=== PATIENT | male | born 1990 | race Caucasian/White ===

== ENCOUNTER 2019-02-22 02:11 | Inpatient (IN) | payer OTHER, SELFPAY ==
[2019-02-22 02:42] LABS: Absolute Lymphocytes (CBC) 3.8 K/uL (0.7-4.9); Absolute Monocytes 1.1 K/uL (0.1-1.3); Basophils % 0.4 % (0-1.3); Lymphocytes % 31.2 % (15.3-44.8); Monocytes % 8.9 % (3.3-12.3); RBC Red Blood Cell Count 4.36 M/uL (4.33-5.43)
[2019-02-22] MEDS ORDERED: D5 0.45 NS 1,000 ML IV ONE (02:50)
[2019-02-22 02:58] LABS: ALT/SGPT 28 U/L (12-78); AST/SGOT 15 U/L (15-37); Alkaline Phosphatase 61 U/L (45-117); BUN Blood Urea Nitrogen 17 mg/dL (7-18); Bicarbonate 26 mmol/L (21-32); Bilirubin Direct < 0.1 mg/dL (0-0.2); Bilirubin Total 0.2 mg/dL (0.2-1.0); Glucose Level 51 mg/dL (74-106); Lipase 127 U/L (73-393); Potassium 3.1 mmol/L (3.5-5.1); Sodium Level 142 mmol/L (136-145)
--- NOTE | 2019-02-22 02:58 | ER ---
Nurse's Notes [facility] Name: Macario Conrelius Age: 28 yrs Sex: Male : 1990 Arrival Date: 02/22/2019 Time: 02:12 Bed 8 Private MD: Diagnosis: Hypoglycemia, unspecified;Suicidal ideations Presentation: 02/22 02:15 Presenting complaint: Patient states: he was feeling depressed over a broken heart and aa1 injected himself with approximately 450 units of his friend's Tresiba at approx 2300 last night. EMS notified poison control [facility] and was informed that hypoglycemia is the only concern that pt needs to be monitored for. Pt reports he no longer has any thoughts of harming himself. Denies thoughts of harming others. Transition of care: patient was not received from another setting of care. Onset of symptoms was February 21, 2019 at 23:00. Risk Assessment: Do you want to hurt yourself or someone else? Patient reports no desire to harm self or others. Initial Sepsis Screen: Does the patient meet any 2 criteria? No. Patient's initial sepsis screen is negative. Does the patient have a suspected source of infection? No. Patient's initial sepsis screen is negative. Care prior to arrival: Medication(s) given: D10 drip IV initiated. 18 GA, in the right wrist, Glucose check: 59. 02:15 Method Of Arrival: EMS: [facility] aa1 02:15 Acuity: AMY 2 aa1 Historical: - Allergies: 02:35 No Known Allergies; aa1 - Home Meds: 02:35 None [Active]; aa1 - PMHx: 02:35 Bipolar disorder; aa1 - PSHx: 02:35 None; aa1 - Immunization history:: Last tetanus immunization: < 5 years ago. - Social history:: Smoking status: Patient uses tobacco products, smokes one pack cigarettes per day. - Ebola Screening: : No symptoms or risks identified at this time. Screenin:15 Abuse screen: Denies threats or abuse. Denies injuries from another. Nutritional aa1 screening: No deficits noted. Tuberculosis screening: No symptoms or risk factors identified. Fall Risk IV access (20 points). Assessment: 02:15 General: Appears in no apparent distress. comfortable, Behavior is calm, cooperative, aa1 appropriate for age. Pain: Denies pain. Neuro: Level of Consciousness is awake, alert, obeys commands, Oriented to person, place, time, situation, Moves all extremities. Full function Speech is normal, Pupils are PERRLA. Cardiovascular: Heart tones S1 S2 present Rhythm is regular. Respiratory: Airway is patent Respiratory effort is even, unlabored, Respiratory pattern is regular, symmetrical. GI: No signs and/or symptoms were reported involving the gastrointestinal system. : No signs and/or symptoms were reported regarding the genitourinary system. EENT: No signs and/or symptoms were reported regarding the EENT system. Derm: Skin is intact, is healthy with good turgor, Skin is pink, warm \T\ dry. Musculoskeletal: Circulation, motion, and sensation intact. Capillary refill < 3 seconds. 02:35 Reassessment: FSBS 37; provider notified. Labs drawn just prior to FSBS. Pt given aa1 sandwich, chips \T\ a coke. 03:45 Reassessment: Patient appears in no apparent distress at this time. Patient and/or aa1 family updated on plan of care and expected duration. Pain level reassessed. Patient is alert, oriented x 3, equal unlabored respirations, skin warm/dry/pink. Dr. Myers at bedside for admission assessment. Pt given coke and M\T\Ms. 04:51 Reassessment: Patient appears in no apparent distress at this time. Patient and/or aa1 family updated on plan of care and expected duration. Pain level reassessed. Patient is alert, oriented x 3, equal unlabored respirations, skin warm/dry/pink. Pt to be admitted to ICU and will be ER hold. Vital Signs: 02:13 BP 128 / 76; Pulse 97; Resp 20; Temp 98.2(O); Pulse Ox 97% on R/A; oe 02:35 Weight 81.65 kg; Height 6 ft. 1 in. (185.42 cm); Pain 0/10; aa1 03:51 BP 123 / 84; Pulse 71; Resp 17; Pulse Ox 98% on R/A; oe 04:50 BP 111 / 74; Pulse 70; Resp 16; Temp 98.0; Pulse Ox 98% on R/A; Pain 0/10; aa1 02:35 Body Mass Index 23.75 (81.65 kg, 185.42 cm) aa1 ED Course: 02:12 Patient arrived in ED. ds1 02:13 Earl Silva PA is PHCP. [facility] 02:13 Dexter Santiago MD is Attending Physician. [facility] 02:13 Arm band placed on right wrist. Patient placed in an exam room, on a stretcher. aa1 02:15 Patient has correct armband on for positive identification. Bed in low position. Call aa1 light in reach. Pulse ox on. NIBP on. Warm blanket given. 02:15 Maintain EMS IV. Dressing intact. Good blood return noted. Site clean \T\ dry. Gauge \T\ aa 1 site: 18 R wrist. 02:27 Eleonora Knight RN is Primary Nurse. aa1 02:30 Safety checks: Items removed: yes. Door open/sign placed on door: yes. Family/friend oe present: no. Sitter present: Yes. 02:30 Initial lab(s) drawn, by ED staff, sent to lab. aa1 02:34 Triage completed. aa1 02:35 Diet: Patient given snack. Tolerated well. aa1 02:45 Safety checks: Items removed: yes. Door open/sign placed on door: yes. Family/friend oe present: no. Sitter present: Yes. 02:57 Lela Martines MD is Hospitalizing Provider. [facility] 03:00 Safety checks: Items removed: yes. Door open/sign placed on door: yes. Family/friend oe present: no. Sitter present: Yes. 03:15 Safety checks: Items removed: yes. Door open/sign placed on door: yes. Family/friend oe present: no. Sitter present: Yes. 03:30 Safety checks: Items removed: yes. Door open/sign placed on door: yes. Family/friend oe present: no. Sitter present: Yes. 03:45 Safety checks: Items removed: yes. Door open/sign placed on door: yes. Family/friend oe present: no. Sitter present: Yes. 04:00 Safety checks: Items removed: yes. Door open/sign placed on door: yes. Family/friend oe present: no. Sitter present: Yes. 04:15 Safety checks: Items removed: yes. Door open/sign placed on door: yes. Family/friend oe present: no. Sitter present: Yes. 04:30 Safety checks: Items removed: yes. Door open/sign placed on door: yes. Family/friend oe present: no. Sitter present: Yes. 04:45 Safety checks: Items removed: yes. Door open/sign placed on door: yes. Family/friend oe present: no. Sitter present: Yes. 04:50 No provider procedures requiring assistance completed. Patient admitted, IV remains in aa1 place. Administered Medications: 02:41 Not Given (unavailable): D5-NS 1000 ml IV at 125 ml/hr continuous tl2 02:41 Drug: D5-1/2 NS 1000 ml Route: IV; Rate: 125 ml/hr; Site: right wrist; tl2 04:53 Follow up: IV Status: Infusion continued upon admission aa1 Point of Care Testing: Blood Glucose: 02:35 Blood Glucose: 37 mg/dL; aa1 03:43 Blood Glucose: 63 mg/dL; oe 04:50 Blood Glucose: 72 mg/dL; oe Ranges: Outcome: 02:57 Decision to Hospitalize by Provider. [facility] 04:51 Admitted to ER Hold. Please see [facility] for further documentation. aa1 04:51 Condition: stable 04:51 Instructed on the need for admit, Demonstrated understanding of instructions. 07:45 Admitted to ICU accompanied by nurse, accompanied by tech, via stretcher, on monitor, aa5 with chart, Report called to RINKU Rolle 07:45 Condition: stable 07:50 Patient left the ED. 5 Signatures: Eleonora Knight RN RN aa1 Earl Silva PA PA [facility] Angella Owens ds1 Fiorella Starr RN RN aa5 Chet Patel RN RN Kaitlin Haas, RINKU RN tl2 Gustabo Mcfarlane oe Corrections: (The following items were deleted from the chart) 02:42 02:33 Blood Glucose: Blood Glucose Reading=37 mg/dL. aa1 aa1 04:05 03:46 Safety checks: Items removed: yes. Door open/sign placed on door: yes. oe Family/friend present: no. Sitter present: Yes. oe 08:13 07:58 Patient left the ED. aa5
--- NOTE | 2019-02-22 02:58 | EDPHYS ---
Physician Documentation [facility] Name: Macario Cornelius Age: 28 yrs Sex: Male : 1990 Arrival Date: 02/22/2019 Time: 02:12 Bed 8 Private MD: ED Physician Dexter Santiago HPI: 02/22 02:39 This 28 yrs old Male presents to ER via EMS with complaints of Overdose. jmm 02:39 The patient presents to the emergency department after a known overdose. This is a 28 jmm year old male with a history of bipolar that presents to the ED after intentionally giving himself 250 units of tresiba. Patient states he attempted this due to relationship issues with a significant other. Patient states that he no longer wishes to hurt himself. Patient denies shortness of breath, denies abdominal pain. . Historical: - Allergies: 02:35 No Known Allergies; aa1 - Home Meds: 02:35 None [Active]; aa1 - PMHx: 02:35 Bipolar disorder; aa1 - PSHx: 02:35 None; aa1 - Immunization history:: Last tetanus immunization: < 5 years ago. - Social history:: Smoking status: Patient uses tobacco products, smokes one pack cigarettes per day. - Ebola Screening: : No symptoms or risks identified at this time. ROS: 02:39 Constitutional: Negative for fever, chills, and weight loss, Cardiovascular: Negative jmm for chest pain, palpitations, and edema, Respiratory: Negative for shortness of breath, cough, wheezing, and pleuritic chest pain. 02:39 Psych: Positive for depression. 02:39 All other systems are negative. Exam: 02:39 Constitutional: This is a well developed, well nourished patient who is awake, alert, jmm and in no acute distress. Head/Face: atraumatic. Eyes: EOMI, no conjunctival erythema appreciated ENT: Moist Mucus Membranes Neck: Trachea midline, Supple Chest/axilla: Normal chest wall appearance and motion. Cardiovascular: Regular rate and rhythm. No edema appreciated Respiratory: Normal respirations, no respiratory distress appreciated Abdomen/GI: Non distended, soft Back: Normal ROM Skin: General appearance color normal MS/ Extremity: Moves all extremities, no obvious deformities appreciated, no edema noted to the lower extremities Neuro: Awake and alert, normal gait Psych: Behavior is normal, Mood is normal, Patient is cooperative and pleasant Vital Signs: 02:13 BP 128 / 76; Pulse 97; Resp 20; Temp 98.2(O); Pulse Ox 97% on R/A; oe 02:35 Weight 81.65 kg; Height 6 ft. 1 in. (185.42 cm); Pain 0/10; aa1 03:51 BP 123 / 84; Pulse 71; Resp 17; Pulse Ox 98% on R/A; oe 04:50 BP 111 / 74; Pulse 70; Resp 16; Temp 98.0; Pulse Ox 98% on R/A; Pain 0/10; aa1 02:35 Body Mass Index 23.75 (81.65 kg, 185.42 cm) aa1 MDM: 02:17 Patient medically screened. [facility] 02:42 Transition of care: After a detail discussion of the patient's case, care is [facility] transferred to Dexter Santiago MD. 02:56 Data reviewed: vital signs, nurses notes. Counseling: I had a detailed discussion with [facility] the patient and/or guardian regarding: the historical points, exam findings, and any diagnostic results supporting the discharge/admit diagnosis. ED course: I discussed the patient with Dr. Espinoza whom accepted admisison. . 02/22 02:17 Order name: Basic Metabolic Panel; Complete Time: 15:54 [facility] 02/22 02:17 Order name: CBC with Diff; Complete Time: 02:50 [facility] 02/22 02:17 Order name: Creatinine for Radiology; Complete Time: 15:54 [facility] 02/22 02:17 Order name: Hepatic Function; Complete Time: 15:54 [facility] 02/22 02:17 Order name: Lipase; Complete Time: 15:54 [facility] 02/22 03:09 Order name: Glucose, Ancillary Testing; Complete Time: 15:54 [facility] 02/22 02:17 Order name: IV Saline Lock; Complete Time: 02:42 [facility] 02/22 02:17 Order name: Labs collected and sent; Complete Time: 02:42 [facility] 02/22 02:18 Order name: Urine Dipstick-Ancillary (obtain specimen); Complete Time: 03:13 [facility] 02/22 03:11 Order name: Urine Drug Screen; Complete Time: 15:54 [facility] 02/22 03:18 Order name: Urine Dipstick--Ancillary (enter results); Complete Time: 15:54 [facility] 02/22 07:07 Order name: Diet Finger Food; Complete Time: 07:07 aa1 Administered Medications: 02:41 Not Given (unavailable): D5-NS 1000 ml IV at 125 ml/hr continuous tl2 02:41 Drug: D5-1/2 NS 1000 ml Route: IV; Rate: 125 ml/hr; Site: right wrist; tl2 04:53 Follow up: IV Status: Infusion continued upon admission aa1 Point of Care Testing: Blood Glucose: 02:35 Blood Glucose: 37 mg/dL; aa1 03:43 Blood Glucose: 63 mg/dL; oe 04:50 Blood Glucose: 72 mg/dL; oe Ranges: Critical Glucose Levels:Adult <50 mg/dl or >400 mg/dl <40 mg/dl or >180 mg/dl Disposition: 02/22/19 02:57 Hospitalization ordered by Lela Martines for Observation. Preliminary diagnosis are Hypoglycemia, unspecified, Suicidal ideations. - Bed requested for Intensive Care Unit. - Status is Observation. hj - Condition is Stable. - Problem is new. - Symptoms are unchanged. UTI on Admission? No Addendum: 03/01/2019 04:49 Co-signature as Attending Physician, Dexter Santiago MD I agree with the assessment and t w4 plan of care. Signatures: Dispatcher [employer] EDMS Justine Blue RN RN Eleonora Knight RN RN aa1 Earl Silva PA PA [facility] Chet Patel RN RN Kaitlin Haas RN RN tl2 Dexter Santiago MD MD tw4 Corrections: (The following items were deleted from the chart) 02/22 04:29 02:57 Hospitalization Ordered by Lela Martines MD for Observation. Preliminary mw diagnosis is Hypoglycemia, unspecified; Suicidal ideations. Bed requested for Telemetry/MedSurg (Inpatient). Status is Observation. Condition is Stable. Problem is new. Symptoms are unchanged. UTI on Admission? No. jmm 06:00 04:29 02/22/2019 02:57 Hospitalization Ordered by Lela Martines MD for Observation. mw Preliminary diagnosis is Hypoglycemia, unspecified; Suicidal ideations. Bed requested for [facility] ER HOLD. Status is Observation. Condition is Stable. Problem is new. Symptoms are unchanged. UTI on Admission? No. mw 07:58 06:00 02/22/2019 02:57 Hospitalization Ordered by Lela Martines MD for Observation. hj Preliminary diagnosis is Hypoglycemia, unspecified; Suicidal ideations. Bed requested for Intensive Care Unit. Status is Observation. Condition is Stable. Problem is new. Symptoms are unchanged. UTI on Admission? No. mw
[2019-02-22 03:41] LABS: Barbiturates NEGATIVE (NEGATIVE); Benzodiazepines NEGATIVE (NEGATIVE); Cocaine NEGATIVE (NEGATIVE); METHAMPHETAM NEGATIVE (NEGATIVE); Methadone NEGATIVE (NEGATIVE); Opiates NEGATIVE (NEGATIVE); Phencyclidine NEGATIVE (NEGATIVE); THC Cannibis POSITIVE (NEGATIVE)
[2019-02-22] MEDS ORDERED: POTASSIUM CL SA 10 MEQ TAB PO ONE ×3 (03:41→20:00)
--- NOTE | 2019-02-22 04:02 | P.HP ---
Certification for Inpatient Patient admitted to: Observation With expected LOS: <2 Midnights Practitioner: I am a practitioner with admitting privileges, knowledge of patient current condition, hospital course, and medical plan of care. Services: Services provided to patient in accordance with Admission requirements found in Title 42 Section 412.3 of the Code of Federal Regulations Patient History Date of Service: 02/22/19 Reason for admission: hypoglycemia History of Present Illness: Mr Cornelius is a 28 years old male with history of Bipolar disorder, no medicated or having follow up at the moment, states that he was feeling depress last night, having suicidal thought. Then, he got Tresiba from a friend, and applied 450 UNITS. Subsequently, he start feeling dizzy and shaking, he got scared and called 911. When EMS arrived, his BS was about 50's. At arrival to ED , BS was 37 mg/dl. He was started on D5%0.45NS drip. Subsequent BS was 64 mg/ dl. He denied suicidal thoughts at this time. Lab work also shows low potassium 3.1. He has previous suicidal attempt in 2015. Home medications list reviewed: Yes - Past Medical/Surgical History -: Bipolar disorder Past Surgical History: Reviewed- Non-Contributory - Family History Family History: Reviewed- Non-Contributory - Social History Smoking Status: Current every day smoker Counseled patient to stop smoking for: less than 10 minutes Smoking therapy provided: Yes Patient receptive to therapy: Yes Alcohol use: No CD- Drugs: No Place of Residence: Home Review of Systems 10-point ROS is otherwise unremarkable Physical Examination - Physical Exam General: Alert, In no apparent distress HEENT: Atraumatic, PERRLA, Mucous membr. moist/pink, EOMI, Sclerae nonicteric Neck: Supple, 2+ carotid pulse no bruit, No LAD, Without JVD or thyroid abnormality Respiratory: Clear to auscultation bilaterally, Normal air movement Cardiovascular: Regular rate/rhythm, Normal S1 S2 Gastrointestinal: Normal bowel sounds, No tenderness Musculoskeletal: No tenderness Integumentary: No rashes Neurological: Normal speech, Normal strength at 5/5 x4 extr, Normal tone, Normal affect Lymphatics: No axilla or inguinal lymphadenopathy - Studies Laboratory Data (last 24 hrs) 02/22/19 02:25: Creatinine 0.88 02/22/19 02:25: WBC 12.2 H, Hgb 13.7, Hct 39.0 L, Plt Count 277 02/22/19 02:25: Sodium 142, Potassium 3.1 L, BUN 17, Creatinine 0.91, Glucose 51 L, Total Bilirubin 0.2, AST 15, ALT 28, Alkaline Phosphatase 61, Lipase 127 Assessment and Plan - Problems (Diagnosis) (1) Hypoglycemia Current Visit: Yes Status: Acute (2) Suicide attempt Current Visit: Yes Status: Acute (3) Bipolar disorder Current Visit: Yes Status: Acute Qualifiers: Active/Remission status: currently active Current bipolar episode type: depressed Current episode severity: unspecified Qualified Code(s): F31.30 - Bipolar disorder, current episode depressed, mild or moderate severity, unspecified - Plan The patient will be admitted in ICU for tight blood sugar monitor. Will continue with D5% 1/2NS infusion, potassium and magnesium protocol. He needs to be evaluated by mental health department before discharge. Order suicidal precautions. - Advance Directives Does patient have a Living Will: No Does patient have a Durable POA for Healthcare: No - Code Status/Comfort Care Code Status Assessed: Yes Code Status: Full Code
[2019-02-22 04:34] LABS: Urine Blood NEGATIVE (NEG); Urine Glucose NEGATIVE (NEG); Urine Protein NEGATIVE (NEG); Urine Specific Gravity 1.015 (1.005-1.030)
[2019-02-22] MEDS ORDERED: D50W 25 GM/50 ML SYRINGE IV PRN (04:44)
[2019-02-22] MEDS ORDERED: D5 0.45 NS 1,000 ML IV SCH (04:44)
[2019-02-22] MEDS ORDERED: ONDANSETRON 4 MG/2 ML VIAL IV PRN (04:44)
[2019-02-22] MEDS: NICOTINE 21 MG/PAT TD SCH (08:45)
[2019-02-22] MEDS: ENOXAPARIN 40 MG/0.4 ML SQ SCH (08:46)
[2019-02-22] MEDS: DEXTROSE 10% IV SCH ×6 (08:46→18:12)
[2019-02-22] MEDS: WATER IV SCH ×6 (08:46→18:12)
[2019-02-22] MEDS: POTASSIUM CL IV SCH ×6 (08:46→18:12)
[2019-02-22 10:40] LABS: BUN Blood Urea Nitrogen 13 mg/dL (7-18); Bicarbonate 28 mmol/L (21-32); Glucose Level 101 mg/dL (74-106); Sodium Level 145 mmol/L (136-145)
--- NOTE | 2019-02-22 15:42 | PN ---
Date of Progress Note: 02/22/2019 Subjective: The patient seen and examined. Chart reviewed and case discussed with RN. The patient states he took the insulin to hurt himself. The patient has had previous suicide attempt back in 7, was taken to [facility] and then subsequently to a psych facility in [facility] for 60 days. The patient reports being bipolar, not on any medications since he has been out of [place]. Physical Examination: Vital Signs: Temperature 98, heart rate 63, blood pressure 97/61, respirations 16, and O2 100% on ro om air. General: Awake, alert, oriented x3, not in any acute distress. CV: S1 and S2. Regular rate and rhythm. Peripheral pulses present. Respiratory: Moving air well bilaterally. No wheezing or stridor. Gastrointestinal: Abdomen is soft, nontender, nondistended. Positive bowel sounds. Extremities: No clubbing, cyanosis, or edema. Neurologic: Nonfocal. Medications: List reviewed. Laboratory Data: Glucose level has been fluctuating from 37 to 97. WBC 12.2, H and H 13.7 and 39, p latelets 227. UDS positive for THC. Assessment And Plan: A 28-year-old male with: 1.Suicide attempt, intentional. 2.Bipolar disorder. 3.Intentional drug overdose. 4.Hypoglycemia, persistent. Plan: Continue to monitor in ICU setting with suicide precautions. We will switch over to D10W as t he patient's blood sugars have continued to be in the 30s and 40s on D5. The patient took Triavil, h rhiannon-like is 25 hours. We will continue to monitor. The patient has minimal symptoms including some headache and lightheadedness. His jitteriness and shaking has resolved. We will consult social work with to find placement to psychiatric facility. The patient is suicidal. SA/MODL Voice ID: [id number] Report ID: [id number]
[2019-02-22] MEDS ORDERED: ACETAMINOPHEN 325 MG TABLET PO PRN (16:22)
[2019-02-22] MEDS ORDERED: NITROGLYCERIN 0.4 MG/TAB SL PRN (16:22)
[2019-02-22] MEDS ORDERED: NA CHLORIDE 0.9% 1,000 ML IV PRN (16:23)
[2019-02-22] MEDS: ACETAMINOPHEN 325 MG TABLET PO PRN (16:24)
[2019-02-22] MEDS: D5.45NS W/KCL 20MEQ 20 MEQ/1,000 ML BAG IV SCH (18:34)
[2019-02-22 18:52] LABS: Albumin 3.7 g/dL (3.4-5.0); Bilirubin Total 0.2 mg/dL (0.2-1.0); Potassium 3.6 mmol/L (3.5-5.1); Protein, Total 6.5 g/dL (6.4-8.2)
[2019-02-23 05:19] LABS: Absolute Lymphocytes (CBC) 3.6 K/uL (0.7-4.9); Absolute Monocytes 0.6 K/uL (0.1-1.3); Absolute Neutrophil 2.8 K/uL (1.8-8.0); Basophils % 0.6 % (0-1.3); Eosinophils % 4.7 % (0-4.4); Lymphocytes % 49.5 % (15.3-44.8); MPV 7.6 fL (7.6-11.3); Monocytes % 7.6 % (3.3-12.3); RBC Red Blood Cell Count 4.32 M/uL (4.33-5.43)
[2019-02-23 05:29] LABS: Magnesium 2.3 mg/dL (1.8-2.4)
[2019-02-23] MEDS: D5.45NS W/KCL 20MEQ 20 MEQ/1,000 ML BAG IV SCH (06:14)
[2019-02-23] MEDS: ENOXAPARIN 40 MG/0.4 ML SQ SCH (08:30)
[2019-02-23] MEDS: NICOTINE 21 MG/PAT TD SCH (08:31)
[2019-02-23] MEDS: LITHIUM CARBONATE 300 MG TAB PO SCH (20:00)
--- NOTE | 2019-02-23 20:22 | PN ---
Date of Progress Note: 02/23/2019 Subjective: The patient is seen and examined. Chart reviewed and case discussed with RN and Adriana from [facility]. The patient was recommended to go to inpatient psychiatric facility for suicidal attempt. The patient is asking if you could have a cigarette and I explained to him that he should not be smoking. We can provide a nicotine patch for him. Medications: List reviewed. Physical Examination: Vital Signs: Temperature 98, heart rate 63, respirations 16, O2 99% on room air. General: Awake, alert, oriented x3, not in any acute distress. CV: S1, S2. No murmurs. Regular rate and rhythm. Peripheral pulses present. Respiratory: Moving air well bilaterally. No wheezing or stridor. No use of accessory muscles. Gastrointestinal: Abdomen is soft, nontender, nondistended. Positive bowel sounds. Extremities: No clubbing, cyanosis, or edema. Neurologic: Nonfocal. Psych: Mood is okay. Affect is full. Insight and judgment are fair. Laboratory Data: Sodium 143, potassium 4, chloride 109, CO2 30, BUN 10, creatinine 1.01, glucose 95, calcium 8.5, magnesium 2.3. WBC is 7.3, H and H 13.7 and 39, platelets 227, neutrophils 37%. Assessment And Plan: A 28-year-old male with: 1. Suicide attempt, intentional. We will continue with suicide precautions. The patient has been evaluated by [facility], recommending inpatient psychiatric facility transfer. We will refer the patient to facility. We will need to get emergency care home. 2. Bipolar disorder. The patient is not on any medications currently. 3. Intentional drug overdose with long-acting insulin. 4. Hypoglycemia, persistent. The patient now weaned off D5. Blood sugar levels have been staying stable. Did have some low blood sugars in the 60s; however, asymptomatic. Medically, he is stable. We will check blood sugars every 2 hours and if continues to remain stable, we will space out blood glucose checks. Plan: Emergency care home order, refer to inpatient psychiatric facility. JACQUELINE Voice ID: [id number] Report ID: [id number]
[2019-02-24] MEDS: LITHIUM CARBONATE 300 MG TAB PO SCH (08:10)
[2019-02-24] MEDS: ENOXAPARIN 40 MG/0.4 ML SQ SCH (08:10)
[2019-02-24] MEDS: NICOTINE 21 MG/PAT TD SCH (08:10)
--- NOTE | 2019-02-24 17:59 | PN ---
Date of Progress Note: 02/24/2019 Subjective: The patient is seen and examined, chart reviewed, and case discussed with RN. The patie nt's parents were at the bedside yesterday. I explained to them that NEHA and my assessment is that he needs inpatient psychiatric transfer, currently awaiting on bed. Medications: List reviewed. Physical Examination: Vital Signs: Temperature 97.6, heart rate 58, blood pressure 102/63, respirations 17, and O2 of 99% on room air. General: Awake, alert, oriented x3, not in any acute distress. CV: S1, S2. No murmurs. Regular rate and rhythm. Peripheral pulses present. Respiratory: Moving air well bilaterally. No wheezing or stridor. Gastrointestinal: Abdomen is soft, nontender, nondistended. Positive bowel sounds. Extremities: No clubbing, cyanosis, or edema. Neuro: Nonfocal. Psych: Mood is okay. Affect is full. Insight and judgment are poor. Laboratory Data: Glucose level ranging between 86 and 92. Assessment And Plan: A 28-year-old male with: 1.Suicide attempt, intentional. Continue suicide precautions. The patient has been evaluated by MR. Inpatient psychiatric care has been recommended. Currently awaiting bed at either [facility] or [facility]. The patient now has an emergency fdc warrant, which expires on Wednesday. 2.Bipolar disorder, restarted on lithium. Has not been on it since he got out of detention couple of yea rs ago. We will check lithium level. 3.Intentional drug overdose with long-acting insulin. 4.Hypoglycemia, persistent secondary to drug overdose with insulin, now resolved. We will space out blood glucose checks to a.c. and h.s. Plan: Awaiting bed and transfer to inpatient psychiatric facility. SA/MODL Voice ID: [id number] Report ID: [id number]
[2019-02-24] MEDS: ACETAMINOPHEN 325 MG TABLET PO PRN (18:08)
--- NOTE | 2019-02-25 18:24 | DS ---
Date of Discharge: 02/24/2019 Consultants: None. Discharge Diagnoses: 1.Suicide attempt, intentional. 2.Bipolar disorder. 3.Intentional drug overdose with long-acting insulin. 4.Hypoglycemia, persistent. 5.Hypokalemia. Hospital Course: The patient is a 28-year-old male, who was admitted to the hospital for suicidal at [facility]. He was kept with one-on-one in the ICU. The patient had used long-acting insulin, had taken several 100 units of long-acting insulin, had persistent hypoglycemia, had to be started on D10W drip . The patient's blood sugar levels improved and he was weaned off D10W and then completely weaned of f without any added dextrose. The patient as became medically stable. He was evaluated by [facility] for his suicidal attempt and was recommended for inpatient psychiatric care. He was referred to [facility] and was accepted. He was started on lithium for his bipolar disorder. He has not been on lit hium since 2017 after he got out of detention. The patient was transferred to [facility] in a stable condition for further psychiatric evaluation and treatment. Medications: As per medication reconciliation list. Diet: Regular. Activity: As tolerated. Follow Up: Follow up with primary care physician. Establish care with primary care physician in the next couple weeks and follow up with psychiatrist upon transfer to [facility]. For physical exa m findings, please see progress note dictated on the day of discharge. Total time spent discharging the patient was 33 minutes. JACQUELINE Voice ID: [id number] Report ID: [id number]
== END 2019-02-24 19:20 | DRG 918 ==
LOC: ER 02:11 → ERHOLD 04:14 → 3RD-ICU 07:31 → OBSVTOIN 02-24 10:29
PROVIDERS: ADMIT Internal Medicine; ATTEND Family Medicine
DX: T38.3X2A Poisoning by insulin and oral hypoglycemic [antidiabetic] drugs, intentional self-harm, initial encounter (principal); E16.1 Other hypoglycemia; F31.9 Bipolar disorder, unspecified; F17.210 Nicotine dependence, cigarettes, uncomplicated; E87.6 Hypokalemia
CPT/HCPCS: 36415; 80048; 80053; 80076; 80307; 81003; 82962; 83690; 83735; 84443; 85025; 96360; 96361; 99285; G0378; J1650

== ENCOUNTER 2024-12-20 10:54 | Emergency (ER) | payer SELFPAY ==
--- OUTSIDE RECORDS SUMMARY | 2024-12-20 10:57 | XMS REPORT | Continuity of Care Document ---
Author Name Unknown Address [address] [facility] [address] [place] [address] [facility] Address [address] [facility] [address] [place] [address] Care Team Providers Care Master At Arms Name Role Phone Ariana Moore Attending Clinician Unavailable MONROE WASHBURN Attending Clinician UnavailKEHINDE Rizzo Attending Clinician Unavailable Ariana Moore Admitting Clinician Unavailable Payers Payer Name Policy Type Policy Number Effective Date Expirati on Date Source Allergies, Adverse Reactions, Alerts Allergy Name Allergy Type Status Severity Reaction(s) Onset Date Inactive Date Treating Clinician Comments Source No Known Allergie s DA Active U 03-31 00:00: 00 [facility] No Known Allergie s DA Active U 03-23 00:00: 00 [facility] Encounters Start Date/Time End Date/Time Encounter Type Admission Type Attending Clinicians Care Facility Care Department Encounter ID Source 2024-03-24 01:45:00 2024-04-01 13:38:00 Inpatient EM Ariana [facility] [id number] [facility] 2024-03-16 02:42:00 2024-03-16 05:07:00 Emergency E MONROE WASHBURN [facility] [id number] NE 2024-02-18 07:45:00 2024-02-18 08:23:00 Emergency E KEHINDE BOGGS [facility] [id number] NE Results Test Description Test Time Test Comments Results Result Co mments Source B-TYPE NATRIURETIC [id number] 13:11:00* Test Item Value Reference Range Interpretation Comme nts B-TYPE NATRIURETIC PEPTIDE ( test code = BNP) 305.0 PG/ML 0.00-100.00 H BASIC METABOLIC [id number] 07:16:00* Test Item Value Reference Range Interpretation Comme nts SODIUM (test code = NA) 141.0 mmol/L 133-144 N POTASSIUM (test code = K) 3.3 mmol/L 3.5-5.1 L CHLORIDE (test code = CL) 108 mmol/L 98-107 H CARBON DIOXIDE (test code = CO2) 27 mEq/L 20-31 N ANION GAP (test code = GAP) 6.0 GAP calc 4.0-15.0 N GLUCOSE (test code = GLU) 96 MG/DL 70-110 N BLOOD UREA NITROGEN (test code = BUN) 16 MG/DL 7-18 N GLOMERULAR FILTRATION RATE (test code = GFR) 108 estGFR >60 The Glomerular Filtration Rate is a calculated parameterbased on serum Creatinine, patient age and sex. GFR valuesless than 60 mL/min/1.73 square meters are indicative ofChronic Kidney Disease. Values less than 15 mL/min/1.73square meters indicate Kidney failure. The calculation forGFR is based on the CKD-EPI (2020) calculation. This formulais race indifferent and is the recommended formula for GFRby the National Kidney Foundation for Adults.The GFR will not calculate if the sex is unknown or if thepatient's age is <18 years. CREATININE (test code = CREAT) 0.95 mg/dL 0.55-1.30 N CALCIUM (test code = CA) 8.8 MG/DL 8.7-10.4 N INDEX HEMOLYSIS (test code = HEMINDEX) NEGATIVE Index/DL See_Comment [Automated message] The system which generated this result transmitted reference range: 1 NORMAL. The reference range was not used to interpret this result as normal/abnormal. INDEX ICTERIC (test code = ICTINDEX) NEGATIVE Index/DL See_Comment [Automated message] The system which generated this result transmitted reference range: 1 NORMAL. The reference range was not used to interpret this result as normal/abnormal. INDEX LIPEMIA (test code = LIPINDEX) NEGATIVE Index/DL See_Comment [Automated message] The system which generated this result transmitted reference range: 1 NORMAL. The reference range was not used to interpret this result as normal/abnormal. [id number] 07:16:00* Test Item Value Reference Range Interpretation Comme nts MAGNESIUM (test code = MAG) 1.8 MG/DL 1.8-2.4 N CBC W/AUTO [id number] 07:05:00* Test Item Value Reference Range Interpretation Comme nts WHITE BLOOD CELL (test code = WBC) 10.7 K/mm3 4.1-12.1 N RED BLOOD CELL (test code = RBC) 3.29 M/mm3 3.8-5.5 L HEMOGLOBIN (test code = HGB) 10.1 G/DL 10.6-15.8 L HEMATOCRIT (test code = HCT) 29.5 % 31.8-47.4 L MEAN CELL VOLUME (test code = MCV) 89.7 fL 80.1-101.1 N MEAN CELL HGB (test code = MCH) 30.7 pg 25.3-35.3 N MEAN CELL HGB CONCETRATION ( test code = MCHC) 34.2 G/DL 32.7-35.1 N RED CELL DISTRIBUTION WIDTH (test code = RDW) 12.8 % 12.2-16.4 N RED CELL DISTRIBUTION WIDTH (test code = RDW-SD) 42.1 fL 35.1-43.9 N PLATELET COUNT (test code = PLT) 222 K/mm3 155-337 N MEAN PLATELET VOLUME (test c ode = MPV) 9.4 fL 7.6-10.4 N GRANULOCYTE % (test code = GR%) 53.1 % 37.8-82.6 N IMMATURE GRANULOCYTE % (test code = IG%) 2.3 % 0.0-2.0 H LYMPHOCYTE % (test code = LY%) 28.4 % 14.1-45.4 N MONOCYTE % (test code = MO%) 14.0 % 2.5-11.7 H EOSINOPHIL % (test code = EO%) 1.9 % 0.0-6.2 N BASOPHIL % (test code = BA%) 0.3 % 0.0-2.6 N NUCLEATED RBC % (test code = NRBC%) 0.0 /100WBC% 0.0-1.0 N GRANULOCYTE # (test code = GR#) 5.66 k/mm3 2.0-13.7 N IMMATURE GRANULOCYTE # (test code = IG#) 0.25 K/mm3 0.00-0.03 H LYMPHOCYTE # (test code = LY#) 3.02 K/mm3 0.6-3.8 N MONOCYTE # (test code = MO#) 1.49 K/mm3 0.11-0.59 H EOSINOPHIL # (test code = EO#) 0.20 K/mm3 0.0-0.4 N BASOPHIL # (test code = BA#) 0.03 K/mm3 0.0-0.1 N NUCLEATED RBC # (test code = NRBC#) 0.00 K/mm3 0.00-0.05 N CARBAMAZEPINE (TEGRETOL)2024-03-28 07:18:00* Test Item Value Reference Range Interpretation Comme nts CARBAMAZEPINE (TEGRETOL) (test code = CARB) 13.6 ug/mL 4.0-12.0 H In conjunction w ith other antiepileptic drugs Therapeutic 4.0 - 8.0 Toxicity 9.0 - 12.0 Carbamazepine alone Therapeutic 8.0 - 12.0 Detection Limit = 2.0 <2.0 indicates None DetectedPatient drug level exceeds published reference range.Evaluate clinically for signs of potential toxicity.Performed At: [facility] [address] [id number] Fredi Velázquez MD Ph:[phone] BASIC METABOLIC [id number] 04:17:00* Test Item Value Reference Range Interpretation Comme nts SODIUM (test code = NA) 137.0 mmol/L 133-144 N POTASSIUM (test code = K) 3.8 mmol/L 3.5-5.1 N CHLORIDE (test code = CL) 106 mmol/L 98-107 N CARBON DIOXIDE (test code = CO2) 24 mEq/L 20-31 N ANION GAP (test code = GAP) 7.0 GAP calc 4.0-15.0 N GLUCOSE (test code = GLU) 126 MG/DL 70-110 H BLOOD UREA NITROGEN (test code = BUN) 15 MG/DL 7-18 N GLOMERULAR FILTRATION RATE (test code = GFR) 104 estGFR >60 The Glomerular Filtration Rate is a calculated parameterbased on serum Creatinine, patient age and sex. GFR valuesless than 60 mL/min/1.73 square meters are indicative ofChronic Kidney Disease. Values less than 15 mL/min/1.73square meters indicate Kidney failure. The calculation forGFR is based on the CKD-EPI (202) calculation. This formulais race indifferent and is the recommended formula for GFRby the National Kidney Foundation for Adults.The GFR will not calculate if the sex is unknown or if thepatient's age is <18 years. CREATININE (test code = CREAT) 0.98 mg/dL 0.55-1.30 N CALCIUM (test code = CA) 8.5 MG/DL 8.7-10.4 L INDEX HEMOLYSIS (test code = HEMINDEX) NEGATIVE Index/DL See_Comment [Automated message] The system which generated this result transmitted reference range: 1 NORMAL. The reference range was not used to interpret this result as normal/abnormal. INDEX ICTERIC (test code = ICTINDEX) NEGATIVE Index/DL See_Comment [Automated message] The system which generated this result transmitted reference range: 1 NORMAL. The reference range was not used to interpret this result as normal/abnormal. INDEX LIPEMIA (test code = LIPINDEX) NEGATIVE Index/DL See_Comment [Automated message] The system which generated this result transmitted reference range: 1 NORMAL. The reference range was not used to interpret this result as normal/abnormal. [id number] 04:17:00* Test Item Value Reference Range Interpretation Comme nts PHOSPHOROUS (test code = PHOS) 3.2 MG/DL 2.5-4.9 N [id number] 04:17:00* Test Item Value Reference Range Interpretation Comme nts MAGNESIUM (test code = MAG) 2.0 MG/DL 1.8-2.4 N CBC W/AUTO [id number] 03:45:00* Test Item Value Reference Range Interpretation Comme nts WHITE BLOOD CELL (test code = WBC) 9.6 K/mm3 4.1-12.1 N RED BLOOD CELL (test code = RBC) 3.11 M/mm3 3.8-5.5 L HEMOGLOBIN (test code = HGB) 9.5 G/DL 10.6-15.8 L HEMATOCRIT (test code = HCT) 27.7 % 31.8-47.4 L MEAN CELL VOLUME (test code = MCV) 89.1 fL 80.1-101.1 N MEAN CELL HGB (test code = MCH) 30.5 pg 25.3-35.3 N MEAN CELL HGB CONCETRATION ( test code = MCHC) 34.3 G/DL 32.7-35.1 N RED CELL DISTRIBUTION WIDTH (test code = RDW) 12.7 % 12.2-16.4 N RED CELL DISTRIBUTION WIDTH (test code = RDW-SD) 41.5 fL 35.1-43.9 N PLATELET COUNT (test code = PLT) 166 K/mm3 155-337 N MEAN PLATELET VOLUME (test c ode = MPV) 9.8 fL 7.6-10.4 N GRANULOCYTE % (test code = GR%) 75.4 % 37.8-82.6 N IMMATURE GRANULOCYTE % (test code = IG%) 1.3 % 0.0-2.0 N LYMPHOCYTE % (test code = LY%) 14.9 % 14.1-45.4 N MONOCYTE % (test code = MO%) 8.1 % 2.5-11.7 N EOSINOPHIL % (test code = EO%) 0.1 % 0.0-6.2 N BASOPHIL % (test code = BA%) 0.2 % 0.0-2.6 N NUCLEATED RBC % (test code = NRBC%) 0.0 /100WBC% 0.0-1.0 N GRANULOCYTE # (test code = GR#) 7.24 k/mm3 2.0-13.7 N IMMATURE GRANULOCYTE # (test code = IG#) 0.12 K/mm3 0.00-0.03 H LYMPHOCYTE # (test code = LY#) 1.43 K/mm3 0.6-3.8 N MONOCYTE # (test code = MO#) 0.78 K/mm3 0.11-0.59 H EOSINOPHIL # (test code = EO#) 0.01 K/mm3 0.0-0.4 N BASOPHIL # (test code = BA#) 0.02 K/mm3 0.0-0.1 N NUCLEATED RBC # (test code = NRBC#) 0.00 K/mm3 0.00-0.05 N BASIC METABOLIC [id number] 18:23:00* Test Item Value Reference Range Interpretation Comme nts SODIUM (test code = NA) 137.0 mmol/L 133-144 N POTASSIUM (test code = K) 3.7 mmol/L 3.5-5.1 N CHLORIDE (test code = CL) 104 mmol/L 98-107 N CARBON DIOXIDE (test code = CO2) 26 mmol/L 21-32 N ANION GAP (test code = GAP) 7.0 GAP calc 4.0-15.0 N GLUCOSE (test code = GLU) 169 MG/DL 70-110 H BLOOD UREA NITROGEN (test code = BUN) 22 MG/DL 7-18 H GLOMERULAR FILTRATION RATE (test code = GFR) 80 estGFR >60 The Glomerular Filtration Rate is a calculated parameterbased on serum Creatinine, patient age and sex. GFR valuesless than 60 mL/min/1.73 square meters are indicative ofChronic Kidney Disease. Values less than 15 mL/min/1.73square meters indicate Kidney failure. The calculation forGFR is based on the CKD-EPI (202) calculation. This formulais race indifferent and is the recommended formula for GFRby the National Kidney Foundation for Adults.The GFR will not calculate if the sex is unknown or if thepatient's age is <18 years. CREATININE (test code = CREAT) 1.22 MG/DL 0.55-1.30 N Results may be depressed if patient is takingN-Acetylcysteine (NAC) and Metamizole (Dipyrone). CALCIUM (test code = CA) 8.1 MG/DL 8.5-10.1 L INDEX HEMOLYSIS (test code = HEMINDEX) 1 NORMAL <10 MG Index/DL See_Comment [Automated message] The system which generated this result transmitted reference range: 1 NORMAL. The reference range was not used to interpret this result as normal/abnormal. INDEX ICTERIC (test code = ICTINDEX) 1 NORMAL <2 MG Index/DL See_Comment [Automated message] The system which generated this result transmitted reference range: 1 NORMAL. The reference range was not used to interpret this result as normal/abnormal. INDEX LIPEMIA (test code = LIPINDEX) 1 NORMAL <50 MG Index/DL See_Comment [Automated message] The system which generated this result transmitted reference range: 1 NORMAL. The reference range was not used to interpret this result as normal/abnormal. CBC W/AUTO [id number] 04:50:00* Test Item Value Reference Range Interpretation Comme nts WHITE BLOOD CELL (test code = WBC) 12.2 K/mm3 4.1-12.1 H RED BLOOD CELL (test code = RBC) 3.39 M/mm3 3.8-5.5 L HEMOGLOBIN (test code = HGB) 10.7 G/DL 10.6-15.8 N HEMATOCRIT (test code = HCT) 30.1 % 31.8-47.4 L MEAN CELL VOLUME (test code = MCV) 88.8 fL 80.1-101.1 N MEAN CELL HGB (test code = MCH) 31.6 pg 25.3-35.3 N MEAN CELL HGB CONCETRATION ( test code = MCHC) 35.5 G/DL 32.7-35.1 H RED CELL DISTRIBUTION WIDTH (test code = RDW) 13.0 % 12.2-16.4 N RED CELL DISTRIBUTION WIDTH (test code = RDW-SD) 41.9 fL 35.1-43.9 N PLATELET COUNT (test code = PLT) 174 K/mm3 155-337 N MEAN PLATELET VOLUME (test c ode = MPV) 10.5 fL 7.6-10.4 H GRANULOCYTE % (test code = GR%) 82.1 % 37.8-82.6 N IMMATURE GRANULOCYTE % (test code = IG%) 1.0 % 0.0-2.0 N LYMPHOCYTE % (test code = LY%) 8.0 % 14.1-45.4 L MONOCYTE % (test code = MO%) 7.8 % 2.5-11.7 N EOSINOPHIL % (test code = EO%) 0.8 % 0.0-6.2 N BASOPHIL % (test code = BA%) 0.3 % 0.0-2.6 N NUCLEATED RBC % (test code = NRBC%) 0.0 /100WBC% 0.0-1.0 N GRANULOCYTE # (test code = GR#) 10.05 k/mm3 2.0-13.7 N IMMATURE GRANULOCYTE # (test code = IG#) 0.12 K/mm3 0.00-0.03 H LYMPHOCYTE # (test code = LY#) 0.98 K/mm3 0.6-3.8 N MONOCYTE # (test code = MO#) 0.95 K/mm3 0.11-0.59 H EOSINOPHIL # (test code = EO#) 0.10 K/mm3 0.0-0.4 N BASOPHIL # (test code = BA#) 0.04 K/mm3 0.0-0.1 N NUCLEATED RBC # (test code = NRBC#) 0.00 K/mm3 0.00-0.05 N BASIC METABOLIC [id number] 04:43:00* Test Item Value Reference Range Interpretation Comme nts SODIUM (test code = NA) 140.0 mmol/L 133-144 N POTASSIUM (test code = K) 4.2 mmol/L 3.5-5.1 N CHLORIDE (test code = CL) 110 mmol/L 98-107 H CARBON DIOXIDE (test code = CO2) 25 mEq/L 20-31 N ANION GAP (test code = GAP) 5.0 GAP calc 4.0-15.0 N GLUCOSE (test code = GLU) 110 MG/DL 70-110 N BLOOD UREA NITROGEN (test code = BUN) 20 MG/DL 7-18 H GLOMERULAR FILTRATION RATE (test code = GFR) 77 estGFR >60 The Glomerular Filtration Rate is a calculated parameterbased on serum Creatinine, patient age and sex. GFR valuesless than 60 mL/min/1.73 square meters are indicative ofChronic Kidney Disease. Values less than 15 mL/min/1.73square meters indicate Kidney failure. The calculation forGFR is based on the CKD-EPI (202) calculation. This formulais race indifferent and is the recommended formula for GFRby the National Kidney Foundation for Adults.The GFR will not calculate if the sex is unknown or if thepatient's age is <18 years. CREATININE (test code = CREAT) 1.25 mg/dL 0.55-1.30 N CALCIUM (test code = CA) 8.3 MG/DL 8.7-10.4 L INDEX HEMOLYSIS (test code = HEMINDEX) 2 TRACE 10-25 MG Index/DL See_Comment [Automated message] The system which generated this result transmitted reference range: 1 NORMAL. The reference range was not used to interpret this result as normal/abnormal. INDEX ICTERIC (test code = ICTINDEX) NEGATIVE Index/DL See_Comment [Automated message] The system which generated this result transmitted reference range: 1 NORMAL. The reference range was not used to interpret this result as normal/abnormal. INDEX LIPEMIA (test code = LIPINDEX) NEGATIVE Index/DL See_Comment [Automated message] The system which generated this result transmitted reference range: 1 NORMAL. The reference range was not used to interpret this result as normal/abnormal. [id number] 04:43:00* Test Item Value Reference Range Interpretation Comme nts MAGNESIUM (test code = MAG) 1.8 MG/DL 1.8-2.4 N COVID 19 Asymptomatic IH [id number] 01:54:00* Test Item Value Reference Range Interpretation Comme nts COVID 19 Asymptomatic IH AG (test code = COVNONPUIAG) Negative Neg BASIC METABOLIC [id number] 03:48:00* Test Item Value Reference Range Interpretation Comme nts SODIUM (test code = NA) 139.0 mmol/L 133-144 N POTASSIUM (test code = K) 4.8 mmol/L 3.5-5.1 N CHLORIDE (test code = CL) 109 mmol/L 98-107 H CARBON DIOXIDE (test code = CO2) 25 mEq/L 20-31 N ANION GAP (test code = GAP) 5.0 GAP calc 4.0-15.0 N GLUCOSE (test code = GLU) 102 MG/DL 70-110 N BLOOD UREA NITROGEN (test code = BUN) 22 MG/DL 7-18 H GLOMERULAR FILTRATION RATE (test code = GFR) 106 estGFR >60 The Glomerular Filtration Rate is a calculated parameterbased on serum Creatinine, patient age and sex. GFR valuesless than 60 mL/min/1.73 square meters are indicative ofChronic Kidney Disease. Values less than 15 mL/min/1.73square meters indicate Kidney failure. The calculation forGFR is based on the CKD-EPI (202) calculation. This formulais race indifferent and is the recommended formula for GFRby the National Kidney Foundation for Adults.The GFR will not calculate if the sex is unknown or if thepatient's age is <18 years. CREATININE (test code = CREAT) 0.96 mg/dL 0.55-1.30 N CALCIUM (test code = CA) 8.8 MG/DL 8.7-10.4 N INDEX HEMOLYSIS (test code = HEMINDEX) 1 NORMAL <10 MG Index/DL See_Comment [Automated message] The system which generated this result transmitted reference range: 1 NORMAL. The reference range was not used to interpret this result as normal/abnormal. INDEX ICTERIC (test code = ICTINDEX) NEGATIVE Index/DL See_Comment [Automated message] The system which generated this result transmitted reference range: 1 NORMAL. The reference range was not used to interpret this result as normal/abnormal. INDEX LIPEMIA (test code = LIPINDEX) NEGATIVE Index/DL See_Comment [Automated message] The system which generated this result transmitted reference range: 1 NORMAL. The reference range was not used to interpret this result as normal/abnormal. [id number] 03:48:00* Test Item Value Reference Range Interpretation Comme nts PHOSPHOROUS (test code = PHOS) 2.8 MG/DL 2.5-4.9 N [id number] 03:48:00* Test Item Value Reference Range Interpretation Comme nts MAGNESIUM (test code = MAG) 2.0 MG/DL 1.8-2.4 N CBC W/AUTO [id number] 03:37:00* Test Item Value Reference Range Interpretation Comme nts WHITE BLOOD CELL (test code = WBC) 10.8 K/mm3 4.1-12.1 N RED BLOOD CELL (test code = RBC) 3.51 M/mm3 3.8-5.5 L HEMOGLOBIN (test code = HGB) 10.6 G/DL 10.6-15.8 N HEMATOCRIT (test code = HCT) 32.7 % 31.8-47.4 N MEAN CELL VOLUME (test code = MCV) 93.2 fL 80.1-101.1 N MEAN CELL HGB (test code = MCH) 30.2 pg 25.3-35.3 N MEAN CELL HGB CONCETRATION ( test code = MCHC) 32.4 G/DL 32.7-35.1 L RED CELL DISTRIBUTION WIDTH (test code = RDW) 13.3 % 12.2-16.4 N RED CELL DISTRIBUTION WIDTH (test code = RDW-SD) 45.5 fL 35.1-43.9 H PLATELET COUNT (test code = PLT) 144 K/mm3 155-337 L MEAN PLATELET VOLUME (test c ode = MPV) 10.5 fL 7.6-10.4 H GRANULOCYTE % (test code = GR%) 76.9 % 37.8-82.6 N IMMATURE GRANULOCYTE % (test code = IG%) 0.7 % 0.0-2.0 N LYMPHOCYTE % (test code = LY%) 14.3 % 14.1-45.4 N MONOCYTE % (test code = MO%) 5.4 % 2.5-11.7 N EOSINOPHIL % (test code = EO%) 2.4 % 0.0-6.2 N BASOPHIL % (test code = BA%) 0.3 % 0.0-2.6 N NUCLEATED RBC % (test code = NRBC%) 0.0 /100WBC% 0.0-1.0 N GRANULOCYTE # (test code = GR#) 8.31 k/mm3 2.0-13.7 N IMMATURE GRANULOCYTE # (test code = IG#) 0.08 K/mm3 0.00-0.03 H LYMPHOCYTE # (test code = LY#) 1.54 K/mm3 0.6-3.8 N MONOCYTE # (test code = MO#) 0.58 K/mm3 0.11-0.59 N EOSINOPHIL # (test code = EO#) 0.26 K/mm3 0.0-0.4 N BASOPHIL # (test code = BA#) 0.03 K/mm3 0.0-0.1 N NUCLEATED RBC # (test code = NRBC#) 0.00 K/mm3 0.00-0.05 N GLUCOSE BEDSIDE [id number] 03:23:00* Test Item Value Reference Range Interpretation Comme nts GLUCOSE BEDSIDE TESTING (manuel t code = GLUBED) 101 MG/DL 70-119 N GLUCOSE BEDSIDE [id number] 21:05:00* Test Item Value Reference Range Interpretation Comme nts GLUCOSE BEDSIDE TESTING (manuel t code = GLUBED) 115 MG/DL 70-119 N B-TYPE NATRIURETIC [id number] 17:43:00* Test Item Value Reference Range Interpretation Comme nts B-TYPE NATRIURETIC PEPTIDE ( test code = BNP) 61.9 PG/ML 0.00-100.00 N CBC W/AUTO [id number] 07:24:00* Test Item Value Reference Range Interpretation Comme nts WHITE BLOOD CELL (test code = WBC) 8.0 K/mm3 4.1-12.1 N RED BLOOD CELL (test code = RBC) 3.94 M/mm3 3.8-5.5 N HEMOGLOBIN (test code = HGB) 12.4 G/DL 10.6-15.8 N HEMATOCRIT (test code = HCT) 34.5 % 31.8-47.4 N MEAN CELL VOLUME (test code = MCV) 87.6 fL 80.1-101.1 N MEAN CELL HGB (test code = MCH) 31.5 pg 25.3-35.3 N MEAN CELL HGB CONCETRATION ( test code = MCHC) 35.9 G/DL 32.7-35.1 H RED CELL DISTRIBUTION WIDTH (test code = RDW) 13.0 % 12.2-16.4 N RED CELL DISTRIBUTION WIDTH (test code = RDW-SD) 41.9 fL 35.1-43.9 N PLATELET COUNT (test code = PLT) 151 K/mm3 155-337 L MEAN PLATELET VOLUME (test c ode = MPV) 9.3 fL 7.6-10.4 N GRANULOCYTE % (test code = GR%) 83.3 % 37.8-82.6 H IMMATURE GRANULOCYTE % (test code = IG%) 0.5 % 0.0-2.0 N LYMPHOCYTE % (test code = LY%) 10.0 % 14.1-45.4 L MONOCYTE % (test code = MO%) 5.9 % 2.5-11.7 N EOSINOPHIL % (test code = EO%) 0.1 % 0.0-6.2 N BASOPHIL % (test code = BA%) 0.2 % 0.0-2.6 N NUCLEATED RBC % (test code = NRBC%) 0.0 /100WBC% 0.0-1.0 N GRANULOCYTE # (test code = GR#) 6.68 k/mm3 2.0-13.7 N IMMATURE GRANULOCYTE # (test code = IG#) 0.04 K/mm3 0.00-0.03 H LYMPHOCYTE # (test code = LY#) 0.80 K/mm3 0.6-3.8 N MONOCYTE # (test code = MO#) 0.47 K/mm3 0.11-0.59 N EOSINOPHIL # (test code = EO#) 0.01 K/mm3 0.0-0.4 N BASOPHIL # (test code = BA#) 0.02 K/mm3 0.0-0.1 N NUCLEATED RBC # (test code = NRBC#) 0.00 K/mm3 0.00-0.05 N WBC [id number] 07:24:00* Test Item Value Reference Range Interpretation Comme nts TOTAL CELLS COUNTED (test code = TCC) 100 #CELLS See_Comment [Automated mes king] The system which generated this result transmitted reference range: 100. The reference range was not used to interpret this result as normal/abnormal. SEGMENTED NEUTROPHILS (test code = SEG) 79 % 40-75 H LYMPHOCYTE (test code = LYMPH) 17 % 12.6-43.5 N MORPHOLOGY COMMENT (test code = MOC) ON SCAN NORMAL RBCS PLATELET ESTIMATE (test code = PLTEST) SL DECR ON SCAN ADEQUATE MONOCYTE (test code = MON) 4 % 4.2-12.7 L VACUOLATED NEUTROPHILS (test code = VN) SLIGHT ON SCAN NONE [id number] 04:23:00* Test Item Value Reference Range Interpretation Comme nts PHOSPHOROUS (test code = PHOS) 4.0 MG/DL 2.5-4.9 N ADDON REQUESTEDCARBAMAZEPINE (TEGRETOL)2024-03-25 04:09:00* Test Item Value Reference Range Interpretation Comme nts CARBAMAZEPINE (TEGRETOL) (test code = CARB) 17.6 ug/mL 4.0-12.0 H In conjunction w ith other antiepileptic drugs Therapeutic 4.0 - 8.0 Toxicity 9.0 - 12.0 Carbamazepine alone Therapeutic 8.0 - 12.0 Detection Limit = 2.0 <2.0 indicates None DetectedPatient drug level exceeds published reference range.Evaluate clinically for signs of potential toxicity.Performed At: [facility] [id number] [place], [place] [id number] Fredi Velázquez MD Ph:[phone] ARTERIAL BLOOD [id number] 03:23:00* Test Item Value Reference Range Interpretation Comme nts ARTERIAL BLOOD GAS PH (test code = PHA) 7.40 pH units 7.35-7.45 N ARTERIAL BLOOD GAS PCO2 (test code = PCO2A) 40 mmHg 35-45 N ARTERIAL BLOOD GAS PO2 (test code = PO2A) 77 mmHg 80-100 L BICARBONATE TOTAL HCO3 (test code = HCO3) 24.8 mmol/L 22.0-26.0 N BASE EXCESS (test code = CORIN) 0.0 mmol/L -3.0-3.0 N FIO2 (test code = FIO2A) 100 % (calc) 21-100 N MODALITY (test code = MOD) BIPAP COMMENT DESCRIPTION PaO2/FiO2 (test code = [id number]) 77.00 mm/Hg ABG PEEP (test code = PEEPA) 5 cm H20 0.0-99.9 ABG PRESSURE SUPPORT (test code = PSABG) 5.0 cm H20 See_Comment [Automated messa ge] The system which generated this result transmitted reference range: 0-. The reference range was not used to interpret this result as normal/abnormal. ABG SITE (test code = SITEA) LEFT RADIAL ARTKIT DESCRIPTION MODIFIED JASEN'S (test code = MODALL) POSITIVE Circ.CHK POSITIVE O2 SATURATION (test code = O2S/C) 96 % (calc) 95-100 N [facility] [id number] 03:09:00* Test Item Value Reference Range Interpretation Comme nts SODIUM (test code = NA) 140.0 mmol/L 133-144 N POTASSIUM (test code = K) 4.2 mmol/L 3.5-5.1 N CHLORIDE (test code = CL) 111 mmol/L 98-107 H CARBON DIOXIDE (test code = CO2) 24 mEq/L 20-31 N ANION GAP (test code = GAP) 5.0 GAP calc 4.0-15.0 N GLUCOSE (test code = GLU) 113 MG/DL 70-110 H BLOOD UREA NITROGEN (test code = BUN) 17 MG/DL 7-18 N GLOMERULAR FILTRATION RATE (test code = GFR) 105 estGFR >60 The Glomerular Filtration Rate is a calculated parameterbased on serum Creatinine, patient age and sex. GFR valuesless than 60 mL/min/1.73 square meters are indicative ofChronic Kidney Disease. Values less than 15 mL/min/1.73square meters indicate Kidney failure. The calculation forGFR is based on the CKD-EPI (2020) calculation. This formulais race indifferent and is the recommended formula for GFRby the National Kidney Foundation for Adults.The GFR will not calculate if the sex is unknown or if thepatient's age is <18 years. CREATININE (test code = CREAT) 0.97 mg/dL 0.55-1.30 N CALCIUM (test code = CA) 8.2 MG/DL 8.7-10.4 L INDEX HEMOLYSIS (test code = HEMINDEX) NEGATIVE Index/DL See_Comment [Automated message] The system which generated this result transmitted reference range: 1 NORMAL. The reference range was not used to interpret this result as normal/abnormal. INDEX ICTERIC (test code = ICTINDEX) NEGATIVE Index/DL See_Comment [Automated message] The system which generated this result transmitted reference range: 1 NORMAL. The reference range was not used to interpret this result as normal/abnormal. INDEX LIPEMIA (test code = LIPINDEX) NEGATIVE Index/DL See_Comment [Automated message] The system which generated this result transmitted reference range: 1 NORMAL. The reference range was not used to interpret this result as normal/abnormal. [id number] 03:09:00* Test Item Value Reference Range Interpretation Comme nts MAGNESIUM (test code = MAG) 1.6 MG/DL 1.8-2.4 L LACTIC [id number] 03:09:00* Test Item Value Reference Range Interpretation Comme nts LACTIC ACID (test code = LACT) 1.9 mmol/L 0.4-2.0 N Specimen comments: SEPSIS WORKUPLACTIC [id number] 01:01:00* Test Item Value Reference Range Interpretation Comme nts LACTIC ACID (test code = LACT) 1.8 mmol/L 0.4-2.0 N Specimen comments: SEPSIS WORKUPGLUCOSE BEDSIDE [id number] 00:30:00* Test Item Value Reference Range Interpretation Comme nts GLUCOSE BEDSIDE TESTING (manuel t code = GLUBED) 118 MG/DL 70-119 N LACTIC [id number] 23:33:00* Test Item Value Reference Range Interpretation Comme nts LACTIC ACID (test code = LACT) 2.1 mmol/L 0.4-2.0 H ON 03/24/24 AT 2 332, [facility] CALLED TO KRISHNA VAUGHN. Thereport was confirmed by read back protocols Y,N: YES. Specimen comments: SEPSIS WORKUPUA RFLX MICR CULT IF [id number] 22:22:00* Test Item Value Reference Range Interpretation Comme nts UA COLOR (test code = COLU) YELLOW DESCRIPT YELLOW UA APPEARANCE (test code = APPU) CLEAR DESCRIPT CLEAR UA GLUCOSE DIPSTICK (test code = DGLUU) NORMAL (0) mg/dL See_Comment [Automated message] The system which generated this result transmitted reference range: 0 (NORMAL). The reference range was not used to interpret this result as normal/abnormal. UA BILIRUBIN DIPSTICK (test code = BILU) NEGATIVE (0.0) mg/dL See_Comment [Automated message] The system which generated this result transmitted reference range: (NEG) 0. The reference range was not used to interpret this result as normal/abnormal. UA KETONE DIPSTICK (test code = KETU) NEGATIVE (0) mg/dL See_Comment [Automated message] The system which generated this result transmitted reference range: (NEG) 0. The reference range was not used to interpret this result as normal/abnormal. UA SPECIFIC GRAVITY (test code = SGU) 1.019 SG 1.001-1.035 UA BLOOD DIPSTICK (test code = KAYLEEN) NEGATIVE (0.00) mg/dL See_Comment [Automated message] The system which generated this result transmitted reference range: 0 (NEG). The reference range was not used to interpret this result as normal/abnormal. UA PH DIPSTICK (test code = EMMANUEL) 6.5 pH UNITS 4.6-8.0 UA PROTEIN DIPSTICK (test code = PROU) 30 (1+) mg/dL See_Comment A [Automated message] The system which generated this result transmitted reference range: (NEG) <30. The reference range was not used to interpret this result as normal/abnormal. UA UROBILINIOGEN DIPSTICK (test code = URO) NORMAL (0) mg/Dl See_Comment [Automated message] The system which generated this result transmitted reference range: (NORM)<2.0. The reference range was not used to interpret this result as normal/abnormal. UA NITRITE DIPSTICK (test code = ELIAS) NEGATIVE (0) SCREEN NEG UA LEUKOCYTE ESTERASE DIPSTICK (test code = LEUU) NEGATIVE (0) Leuk/mcL See_Comment [Automated message] The system which generated this result transmitted reference range: (NEG) 0. The reference range was not used to interpret this result as normal/abnormal. UA COMMENT (test code = COMU) SPECIMEN COMMENT NoteSPEC SpecComment UA WBC (test code = WBCU) 0-3 #WBC/HPF 0-3 UA RBC (test code = RBCU) 0-3 #RBC/HPF 0-3 UA BACTERIA (test code = BACU) TRACE >0 /HPF NONE-FEW UA HYALINE CAST (test code = HYALU) 0-5 #/LPF 0-3 UA MUCUS (test code = MUCU) RARE /LPF NONE UA YEAST (BUDDING) (test code = YEASTUBD) FEW >5 /HPF NONE A UA CULTURE NEEDED? (test code = UACULT) Crit NOTmet CULT-N/A Criteria [facility] Indication for culture: RiskForSepsis-no oth srcUA DESCRIPTION: FOLEYCath Status: Less than 14 daysLACTIC [id number] 21:21:00* Test Item Value Reference Range Interpretation Comme nts LACTIC ACID (test code = LACT) 1.7 mmol/L 0.4-2.0 N Specimen comments: SEPSIS WORKUPGLUCOSE BEDSIDE [id number] 21:07:00* Test Item Value Reference Range Interpretation Comme nts GLUCOSE BEDSIDE TESTING (manuel t code = GLUBED) 112 MG/DL 70-119 N GLUCOSE BEDSIDE [id number] 18:16:00* Test Item Value Reference Range Interpretation Comme nts GLUCOSE BEDSIDE TESTING (manuel t code = GLUBED) 120 MG/DL 70-119 H BASIC METABOLIC [id number] 15:49:00* Test Item Value Reference Range Interpretation Comme nts SODIUM (test code = NA) 139.0 mmol/L 133-144 N POTASSIUM (test code = K) 4.0 mmol/L 3.5-5.1 N CHLORIDE (test code = CL) 108 mmol/L 98-107 H CARBON DIOXIDE (test code = CO2) 25 mEq/L 20-31 N ANION GAP (test code = GAP) 6.0 GAP calc 4.0-15.0 N GLUCOSE (test code = GLU) 102 MG/DL 70-110 N BLOOD UREA NITROGEN (test code = BUN) 15 MG/DL 7-18 N GLOMERULAR FILTRATION RATE (test code = GFR) 100 estGFR >60 The Glomerular Filtration Rate is a calculated parameterbased on serum Creatinine, patient age and sex. GFR valuesless than 60 mL/min/1.73 square meters are indicative ofChronic Kidney Disease. Values less than 15 mL/min/1.73square meters indicate Kidney failure. The calculation forGFR is based on the CKD-EPI (202) calculation. This formulais race indifferent and is the recommended formula for GFRby the National Kidney Foundation for Adults.The GFR will not calculate if the sex is unknown or if thepatient's age is <18 years. CREATININE (test code = CREAT) 1.01 mg/dL 0.55-1.30 N CALCIUM (test code = CA) 9.1 MG/DL 8.7-10.4 N INDEX HEMOLYSIS (test code = HEMINDEX) 1 NORMAL <10 MG Index/DL See_Comment [Automated message] The system which generated this result transmitted reference range: 1 NORMAL. The reference range was not used to interpret this result as normal/abnormal. INDEX ICTERIC (test code = ICTINDEX) NEGATIVE Index/DL See_Comment [Automated message] The system which generated this result transmitted reference range: 1 NORMAL. The reference range was not used to interpret this result as normal/abnormal. INDEX LIPEMIA (test code = LIPINDEX) NEGATIVE Index/DL See_Comment [Automated message] The system which generated this result transmitted reference range: 1 NORMAL. The reference range was not used to interpret this result as normal/abnormal. [id number] 15:49:00* Test Item Value Reference Range Interpretation Comme nts MAGNESIUM (test code = MAG) 1.6 MG/DL 1.8-2.4 L CBC W/AUTO [id number] 15:22:00* Test Item Value Reference Range Interpretation Comme nts WHITE BLOOD CELL (test code = WBC) 5.1 K/mm3 4.1-12.1 N RED BLOOD CELL (test code = RBC) 4.67 M/mm3 3.8-5.5 N HEMOGLOBIN (test code = HGB) 14.5 G/DL 10.6-15.8 N HEMATOCRIT (test code = HCT) 41.2 % 31.8-47.4 N MEAN CELL VOLUME (test code = MCV) 88.2 fL 80.1-101.1 N MEAN CELL HGB (test code = MCH) 31.0 pg 25.3-35.3 N MEAN CELL HGB CONCETRATION ( test code = MCHC) 35.2 G/DL 32.7-35.1 H RED CELL DISTRIBUTION WIDTH (test code = RDW) 13.2 % 12.2-16.4 N RED CELL DISTRIBUTION WIDTH (test code = RDW-SD) 42.9 fL 35.1-43.9 N PLATELET COUNT (test code = PLT) 196 K/mm3 155-337 N MEAN PLATELET VOLUME (test c ode = MPV) 9.6 fL 7.6-10.4 N GRANULOCYTE % (test code = GR%) 87.9 % 37.8-82.6 H IMMATURE GRANULOCYTE % (test code = IG%) 0.2 % 0.0-2.0 N LYMPHOCYTE % (test code = LY%) 9.1 % 14.1-45.4 L MONOCYTE % (test code = MO%) 2.2 % 2.5-11.7 L EOSINOPHIL % (test code = EO%) 0.2 % 0.0-6.2 N BASOPHIL % (test code = BA%) 0.4 % 0.0-2.6 N NUCLEATED RBC % (test code = NRBC%) 0.0 /100WBC% 0.0-1.0 N GRANULOCYTE # (test code = GR#) 4.46 k/mm3 2.0-13.7 N IMMATURE GRANULOCYTE # (test code = IG#) 0.01 K/mm3 0.00-0.03 N LYMPHOCYTE # (test code = LY#) 0.46 K/mm3 0.6-3.8 L MONOCYTE # (test code = MO#) 0.11 K/mm3 0.11-0.59 N EOSINOPHIL # (test code = EO#) 0.01 K/mm3 0.0-0.4 N BASOPHIL # (test code = BA#) 0.02 K/mm3 0.0-0.1 N NUCLEATED RBC # (test code = NRBC#) 0.00 K/mm3 0.00-0.05 N ARTERIAL BLOOD [id number] 10:29:00* Test Item Value Reference Range Interpretation Comme nts ARTERIAL BLOOD GAS PH (test code = PHA) 7.42 pH units 7.35-7.45 N ARTERIAL BLOOD GAS PCO2 (test code = PCO2A) 39 mmHg 35-45 N ARTERIAL BLOOD GAS PO2 (test code = PO2A) 60 mmHg 80-100 L ON 05/31/24 AT 1029, B.CPS.K1 CALLED TO DR PETERS. The report was confirmed by read back protocols Y,N: Y. BICARBONATE TOTAL HCO3 (test code = HCO3) 24.7 mmol/L 22.0-26.0 N BASE EXCESS (test code = CORIN) 0.2 mmol/L -3.0-3.0 N FIO2 (test code = FIO2A) 100 % (calc) 21-100 N MODALITY (test code = MOD) NC COMMENT DESCRIPTION PaO2/FiO2 (test code = CXC7OIE3) 60.00 mm/Hg ABG L/M (test code = L/M) 15 L/MIN See_Comment [Automated messa ge] The system which generated this result transmitted reference range: 0-. The reference range was not used to interpret this result as normal/abnormal. ABG SITE (test code = SITEA) RT RADIAL ARTKIT DESCRIPTION MODIFIED JASEN'S (test code = MODALL) POSITIVE Circ.CHK POSITIVE O2 SATURATION (test code = O2S/C) 92 % (calc) 95-100 L GLUCOSE BEDSIDE [id number] 09:52:00* Test Item Value Reference Range Interpretation Comme nts GLUCOSE BEDSIDE TESTING (manuel t code = GLUBED) 106 MG/DL 70-119 N CARBAMAZEPINE (TEGRETOL)2024-03-24 08:14:00* Test Item Value Reference Range Interpretation Comme nts CARBAMAZEPINE (TEGRETOL) (test code = CARB) 20.1 ug/mL 4.0-12.0 HH In conjunction w ith other antiepileptic drugs Therapeutic 4.0 - 8.0 Toxicity 9.0 - 12.0 Carbamazepine alone Therapeutic 8.0 - 12.0 Detection Limit = 2.0 <2.0 indicates None DetectedResults confirmed ondilution.Patient drug level exceeds published reference range.Evaluate clinically for signs of potential toxicity.Performed At: [facility] [id number] Kyle L MD Ph:[phone] GLUCOSE BEDSIDE [id number] 05:02:00* Test Item Value Reference Range Interpretation Comme nts GLUCOSE BEDSIDE TESTING (manuel t code = GLUBED) 124 MG/DL 70-119 H DRUGS OF ABUSE SCREEN [id number] 08:32:00* Test Item Value Reference Range Interpretation Comments URN COCAINE (test code = COCAURN) Negative SCcutoff See_Comment [Automated message] The system which generated this result transmitted reference range: <300 NG/ML. The reference range was not used to interpret this result as normal/abnormal. URN CANNABINOIDS (test code = CANNABURN) Negative SCcutoff See_Comment [Automated message] The system which generated this result transmitted reference range: <50 NG/ML. The reference range was not used to interpret this result as normal/abnormal. URN AMPHETAMINE (test code = AMPHETURN) POSITIVE SCcutoff See_Comment [Automated message] The system which generated this result transmitted reference range: <1000 NG/ML. The reference range was not used to interpret this result as normal/abnormal. URN BARBITURATE (test code = BARBITURN) Negative SCcutoff See_Comment [Automated message] The system which generated this result transmitted reference range: <200 NG/ML. The reference range was not used to interpret this result as normal/abnormal. URN BENZODIAZEPINE (test code = BENZOURN) Negative SCcutoff See_Comment [Automated message] The system which generated this result transmitted reference range: <200 NG/ML. The reference range was not used to interpret this result as normal/abnormal. URN OPIATES (test code = OPIATURN) Negative SCcutoff See_Comment [Automated message] The system which generated this result transmitted reference range: <300 NG/ML. The reference range was not used to interpret this result as normal/abnormal. URN PHENCYCLIDINE (PCP) (test code = PHENCURN) Negative SCcutoff See_Comment ------ For all drug screen analytes ------The screen method provides only a preliminary analyticaltest result. A more specific alternate chemical method mustbe used in order to obtain a confirmed analytical result.Gas chromatography/mass spectrometry (GC/MS) is thepreferred confirmatory method. Other chemical confirmationmethods are available. Clinical consideration andprofessional judgement should be applied to any drug ofabuse test result, particularly when preliminary positiveresults are used. [Automated message] The system which generated this result transmitted reference range: <25 NG/ML. The reference range was not used to interpret this result as normal/abnormal. [id number] 08:32:00* Test Item Value Reference Range Interpretation Comme nts SALICYLATE (test code = RENETTA) < 3.0 MG/DL See_Comment N [Automated messa ge] The system which generated this result transmitted reference range: 2.8-20.0 THER. The reference range was not used to interpret this result as normal/abnormal. CREATINE KINASE (CK)2024-03-23 08:24:00* Test Item Value Reference Range Interpretation Comme nts CREATINE KINASE (CK) (test c ode = CK) 137 Unit/L 34-171 N [id number] 08:24:00* Test Item Value Reference Range Interpretation Comme nts ACETAMINOPHEN (test code = ACET) < 0.2 mg/dL 1.0-2.0 L [id number] 08:24:00* Test Item Value Reference Range Interpretation Comme nts ALCOHOL (test code = ALC) <3 MG/DL 0-10 N MEDICAL ALCOHOL RESULTS. SITE WAS PREPPED WITH BETADINE. <10 MG/DL ARE CONSIDERED NEGATIVE. >400 MG/DL MAY BE FATAL.RESULTS FOR MEDICAL USE ONLY. NOT TO BE USED FOR FORENSIC PURPOSES. TROP-I HIGH [id number] 08:24:00* Test Item Value Reference Range Interpretation Comme nts TROP-I HIGH SENSITIVITY (test code = TROPIHS) 4 ng/L 0-54 N 99th Percentile Upper Reference Limit (URL):Females: 34 ng/LMales: 54 ng/L In order to distinguish acute elevations of high sensitivitytroponin from other clinical conditions, the FourthUniversal Definition of Myocardial Infarction stressesclinical assessment and the demonstration of a riseand/or fall in serial troponin results above the URL. These results were obtained using Siemens Faculte IM TnIHreagent. Results from different methodologies should not becompared to one another as quantitative results and URLs mayvary by method. NOTE: a bias of less than or equal to 10% may occur forthese substances: Biotin (3500 ng/mL) Cholesterol (500 mg/dL)Protein Albumin (6 g/dL)Protein Gamma Globulin (2.5 g/dL)Total Protein (12 g/dL) BASIC METABOLIC [id number] 08:24:00* Test Item Value Reference Range Interpretation Comme nts SODIUM (test code = NA) 139.0 mmol/L 133-144 N POTASSIUM (test code = K) 3.9 mmol/L 3.5-5.1 N CHLORIDE (test code = CL) 103 mmol/L 98-107 N CARBON DIOXIDE (test code = CO2) 28 mEq/L 20-31 N ANION GAP (test code = GAP) 8.0 GAP calc 4.0-15.0 N GLUCOSE (test code = GLU) 117 MG/DL 70-110 H BLOOD UREA NITROGEN (test code = BUN) 13 MG/DL 7-18 N GLOMERULAR FILTRATION RATE (test code = GFR) 98 estGFR >60 The Glomerular Filtration Rate is a calculated parameterbased on serum Creatinine, patient age and sex. GFR valuesless than 60 mL/min/1.73 square meters are indicative ofChronic Kidney Disease. Values less than 15 mL/min/1.73square meters indicate Kidney failure. The calculation forGFR is based on the CKD-EPI (2020) calculation. This formulais race indifferent and is the recommended formula for GFRby the National Kidney Foundation for Adults.The GFR will not calculate if the sex is unknown or if thepatient's age is <18 years. CREATININE (test code = CREAT) 1.03 mg/dL 0.55-1.30 N CALCIUM (test code = CA) 9.0 MG/DL 8.7-10.4 N INDEX HEMOLYSIS (test code = HEMINDEX) 1 NORMAL <10 MG Index/DL See_Comment [Automated message] The system which generated this result transmitted reference range: 1 NORMAL. The reference range was not used to interpret this result as normal/abnormal. INDEX ICTERIC (test code = ICTINDEX) NEGATIVE Index/DL See_Comment [Automated message] The system which generated this result transmitted reference range: 1 NORMAL. The reference range was not used to interpret this result as normal/abnormal. INDEX LIPEMIA (test code = LIPINDEX) NEGATIVE Index/DL See_Comment [Automated message] The system which generated this result transmitted reference range: 1 NORMAL. The reference range was not used to interpret this result as normal/abnormal. HEPATIC FUNCTION [id number] 08:24:00* Test Item Value Reference Range Interpretation Comme nts TOTAL PROTEIN (test code = PROT) 7.2 G/DL 6.4-8.2 N ALBUMIN (test code = ALB) 4.7 G/DL 3.2-4.8 N BILIRUBIN TOTAL (test code = BILT) 0.20 MG/DL 0.00-1.00 N BILIRUBIN DIRECT (test code = BILD) <0.10 MG/DL 0.10-0.30 L BILIRUBIN INDIRECT (test cod e = BILIND) CALC LUCIANO MG/DL 0.2-1.3 L SGOT/AST (test code = AST) 21 Unit/L 8-33.9 N SGPT/ALT (test code = ALT) 19 Unit/L 10-49 N ALKALINE PHOSPHATASE TOTAL (test code = ALKP) 66 Unit/L 45-117 N CBC W/AUTO [id number] 07:59:00* Test Item Value Reference Range Interpretation Comme nts WHITE BLOOD CELL (test code = WBC) 6.9 K/mm3 4.1-12.1 N RED BLOOD CELL (test code = RBC) 4.60 M/mm3 3.8-5.5 N HEMOGLOBIN (test code = HGB) 14.2 G/DL 10.6-15.8 N HEMATOCRIT (test code = HCT) 41.1 % 31.8-47.4 N MEAN CELL VOLUME (test code = MCV) 89.3 fL 80.1-101.1 N MEAN CELL HGB (test code = MCH) 30.9 pg 25.3-35.3 N MEAN CELL HGB CONCETRATION ( test code = MCHC) 34.5 G/DL 32.7-35.1 N RED CELL DISTRIBUTION WIDTH (test code = RDW) 12.7 % 12.2-16.4 N RED CELL DISTRIBUTION WIDTH (test code = RDW-SD) 41.7 fL 35.1-43.9 N PLATELET COUNT (test code = PLT) 252 K/mm3 155-337 N MEAN PLATELET VOLUME (test c ode = MPV) 8.7 fL 7.6-10.4 N GRANULOCYTE % (test code = GR%) 52.8 % 37.8-82.6 N IMMATURE GRANULOCYTE % (test code = IG%) 0.1 % 0.0-2.0 N LYMPHOCYTE % (test code = LY%) 34.9 % 14.1-45.4 N MONOCYTE % (test code = MO%) 8.6 % 2.5-11.7 N EOSINOPHIL % (test code = EO%) 3.0 % 0.0-6.2 N BASOPHIL % (test code = BA%) 0.6 % 0.0-2.6 N NUCLEATED RBC % (test code = NRBC%) 0.0 /100WBC% 0.0-1.0 N GRANULOCYTE # (test code = GR#) 3.64 k/mm3 2.0-13.7 N IMMATURE GRANULOCYTE # (test code = IG#) 0.01 K/mm3 0.00-0.03 N LYMPHOCYTE # (test code = LY#) 2.41 K/mm3 0.6-3.8 N MONOCYTE # (test code = MO#) 0.59 K/mm3 0.11-0.59 N EOSINOPHIL # (test code = EO#) 0.21 K/mm3 0.0-0.4 N BASOPHIL # (test code = BA#) 0.04 K/mm3 0.0-0.1 N NUCLEATED RBC # (test code = NRBC#) 0.00 K/mm3 0.00-0.05 N Notes Date/Time Note Provider Source 2024-04-01 11:03:00 [facility] ([facility]) DT PROGRESS NOTE REPORT#:[id number] REPORT STATUS: Signed REPORT INITIALIZATION DATE:04/01/24 TIME: 1103 PATIENT: ALEXIA WOODS UNIT #: [id number] ROOM/BED: [address] : [address] AGE: 33 SEX: M ATTEND: Ariana Moore MD ADM AUTHOR: Ariana Doshi MD REPT SERVICE DT/TIME: 04/01/24 1103 * ALL edits or amendments must be made on the electronic/computer document * Progress Note Progress Note [id number] at 1103 RPT #:[id number] END OF REPORT [facility] 2024-04-01 11:02:00 [id number] [place] [address] PATIENT NAME: ALEXIA WOODS ADMIT DATE: 03/24/24 ACCOUNT NO: [id number] ROOM NO: [facility] AGE: 33 REPORT TYPE: DISCHARGE SUMMARY SEX: M ADMITTING PHYSICIAN:Ariana Moore MD ATTENDING PHYSICIAN:Ariana Moore MD ADMISSION DATE: 03/24/2024 01:45:00 DISCHARGE DATE: HOSPITAL COURSE: Mr. Woods has been cleared by Medicine for going to Psych. Psychiatric has evaluated and already approved that this patient would benefit from an inpatient psych. However, we are awaiting a bed from [facility]. Once that is done, this patient will be transferred to [facility]. We are just waiting for a bed assignment. Dictated By: Ariana Doshi MD Date Dictated: 04/01/2024 11:02:57 Date Transcribed: 04/01/2024 12:36:07 /MACK/JAVAN Receipt ID: [id number] Authenticated by Ariana Doshi MD On 04/04/2024 11:29:12 PM at 1129 PATIENT NAME: ALEXIA WOODS [facility] 2024-03-31 14:51:00 [facility] ([facility]) DT PROGRESS NOTE REPORT#:[id number] REPORT STATUS: Signed REPORT INITIALIZATION DATE:03/31/24 TIME: 1451 PATIENT: ALEXIA WOODS UNIT #: [id number] ROOM/BED: [address] : 89 AGE: 33 SEX: M ATTEND: Ariana Moore MD ADM AUTHOR: Ariana Doshi MD REPT SERVICE DT/TIME: 03/31/24 1451 * ALL edits or amendments must be made on the electronic/computer document * Progress Note Progress Note pt is medically cleared for psych eval and rx at 1452 RPT #:[id number] END OF REPORT [facility] 2024-03-31 12:25:00 [facility] ([facility]) DT PROGRESS NOTE REPORT#:[id number] REPORT STATUS: Signed REPORT INITIALIZATION DATE:03/31/24 TIME: 1225 PATIENT: ALEXIA WOODS UNIT #: [id number] ROOM/BED: [address] : 89 AGE: 33 SEX: M ATTEND: Ariana Moore MD ADM AUTHOR: Keyshawn Contreras MD REPT SERVICE DT/TIME: 03/31/24 1225 * ALL edits or amendments must be made on the electronic/computer document * Progress Note Progress Note Lying in bed no distress awake alert oriented denies any complaint on room air saturating well no evidence of increased work of breathing, sitter in the room. Anicteric sclera, no conjunctival injection, pupils equally reactive to light No tenderness over frontal and maxillary sinuses No evidence of pharyngeal or tonsillar congestion, midline uvula No use of accessory muscles No thyromegaly, cervical mandibular or supraclavicular clavicular lymph nodes Midline trachea, no JVD or bruit Thorax is symmetric with good expansion, lungs resonant, breath sounds vesicular : No Rales, wheezes or rhonchi. Cardiovascular examination normal heart sounds, normal S1-S2, no murmur, rub or gallop. Abdominal examination: Soft nontender, no organomegaly or palpable mass, no guarding or rebound tenderness normal bowel sounds. Musculoskeletal: Full range of motion, normal inspection, no muscle spasm, clubbing, cyanosis, calf tenderness or pedal edema. Neurologic exam: Awake alert oriented, moving all 4 extremities spontaneously, Jody Coma Scale 15/15. Current Medications Sig/Chance Start time Last Medication Dose Route Stop Time Status Admin Ipratropium [place] 0.5 MG RTBID 03/31 0700 AC 03/31 NEB 04/30 0701 0742 Formoterol Fumarate 20 MCG BID 03/30 2100 DC INH 04/29 2101 Budesonide 1 MG RTBID 03/30 1900 AC 03/31 NEB 04/29 1901 0742 Formoterol Fumarate 20 MCG RTBID 03/30 1900 AC 03/31 INH 04/29 1627 0742 Ipratropium [place] 0.5 MG RTQ6H 03/30 1900 DC 03/30 NEB 04/29 190 1909 Albuterol/Ipratropium 3 ML RTQ6H PRN PRN 03/30 1600 AC NEB 04/29 1601 Ipratropium [place] 0.5 MG Q6H 03/30 1600 DC NEB 04/29 1601 Furosemide 40 MG DAILY 03/30 1315 AC 03/31 IV 04/29 1316 1034 Lisinopril 2.5 MG DAILY 03/30 1315 AC 03/31 PO 04/29 1316 1036 Lamotrigine 25 MG BID 03/29 2100 AC 03/31 PO 04/28 2101 1032 Clonazepam 0.25 MG BID 03/29 1145 AC 03/31 PO 04/28 1146 1033 Temazepam 30 MG BEDTIME PRN PRN 03/29 1145 AC 03/30 PO 04/28 1146 2125 Amoxicillin/ 875 MG Q12H 03/28 2100 CKD 03/31 Clavulanate Potassium PO 04/02 205 1031 Enoxaparin Sodium 40 MG DAILY 03/28 09 AC 03/31 SUBQ 04/27 09 1035 Nicotine 21 MG DAILY 03/27 221 CKD 03/31 TRANSDERM 04/26 221 1034 Guaifenesin/Codeine 10 ML Q6H PRN PRN 03/27 1045 AC 03/28 Phosphate PO 04/26 1046 2306 Benzonatate 200 MG TID PRN PRN 03/27 0045 AC 03/27 PO 04/26 0046 0052 Mupirocin 1 APPLIC BID 03/24 06 AC 03/31 NASAL 04/23 0601 1037 Acetaminophen 650 MG Q4H PRN PRN 03/24 0430 AC RECTAL 04/23 0431 Calcium Gluconate 50 ML ASDIR 03/24 0430 CKD IV 04/23 0431 Flumazenil 0.2 MG ASDIR PRN 03/24 0430 AC IV 04/23 0431 Magnesium Sulfate 50 ML Q1H PRN PRN 03/24 0430 AC IV 04/23 0431 Magnesium Sulfate/ 100 ML ASDIR PRN 03/24 0430 AC 03/27 Dextrose IV 04/23 0431 0555 Ondansetron HCl 4 MG Q6H PRN PRN 03/24 0430 AC IV 04/23 0431 Potassium Chloride 20 MEQ ASDIR PRN 03/24 0430 AC PO 04/23 0431 Potassium Chloride 40 MEQ ASDIR PRN 03/24 0430 AC PO 04/23 0431 Potassium Chloride 40 MEQ ASDIR PRN 03/24 0430 AC PO 04/23 0431 Potassium Chloride 100 ML Q1H PRN PRN 03/24 0430 AC IV 04/23 431 Potassium Chloride 100 ML Q1H PRN PRN 03/24 0430 AC IV 04/23 431 Potassium Chloride 100 ML Q1H PRN PRN 03/24 0430 AC IV 04/23 431 Potassium Chloride 100 ML Q1H PRN PRN 03/24 0430 AC IV 04/23 431 Potassium Chloride 100 ML Q1H PRN PRN 03/24 0430 AC IV 04/23 043 Potassium Chloride 100 ML Q1H PRN PRN 03/24 0430 AC IV 04/23 043 Potassium Phos/ 1 PKT ASDIR PRN 03/24 043 CKD Sodium Phos PO 04/23 043 Potassium Phosphate 15 MMOL ASDIR PRN 03/24 043 AC Sodium Chloride 250 ML IV 04/23 431 Potassium Phosphate 30 MMOL ASDIR PRN 03/24 430 AC Sodium Chloride 500 ML IV 04/23 043 Assessment and plan: Community-acquired pneumonia versus aspiration pneumonia: Patient was admitted with drug overdose may have altered mental status causing aspiration. Patient chest x-ray on March 25 showed right lower lobe infiltrate with bilateral patchy changes. Patient clinically very stable on room air saturating well, labs did not show any evidence of leukocytosis. Patient received 5 days of IV Zosyn now on Augmentin. Patient may have some component of fluid overload, labs showed elevated BNP level CT scan showed some alveolar density agree with IV Lasix 40 mg daily. COPD: Patient is an active smoker too young to have severe COPD, continue long- acting beta agonist, inhaled corticosteroids and short acting muscarinic antagonist along with DuoNeb as needed to optimize his airway disease. Tobacco dependence: Patient is an active smoker on nicotine replacement therapy with nicotine patch, counseling for smoking cessation was completed. Suicide attempt with drug overdose Patient is cleared from pulmonary standpoint for psych evaluation or transfer to inpatient psych facility or discharged home on oral antibiotics to complete total of 10 days. at 1227 RPT #:[id number] END OF REPORT [facility] 2024-03-31 11:47:00 [id number] [facility] [place] on [address] [place], [place] [address] PATIENT NAME: ALEXIA WOODS ADMIT DATE: 03/24/24 ACCOUNT NO: [id number] ROOM NO: [facility] AGE: 33 REPORT TYPE: DISCHARGE SUMMARY SEX: M ADMITTING PHYSICIAN:Ariana Moore MD ATTENDING PHYSICIAN:Ariana Moore MD ADMISSION DATE: 03/24/2024 01:45:00 DISCHARGE DATE: HOSPITAL COURSE: Mr. Woods is a very pleasant 33-year-old gentleman who came into the hospital because of acute mental status changes with drug overdose. Please see the details of presentation H and P. Briefly, this is a 33-year-old gentleman who was brought into the emergency room after a drug overdose. According to the notes, the patient took a significant amount of Tegretol, Keflex, Seroquel, etc after he became quite agitated. He was quite combative and the patient was kept in the ICU. The patient was unfortunately noted to have aspiration pneumonia. As a result, he was put on IV antibiotics. The patient has done well since then and he has been weaned off of his oxygen. His chest x-ray has shown significant improvement. At this point of time, he is stable for discharge. He will follow up with his primary care physician after he was seen by the psych. He has been currently cleared from a medical perspective. The patient's electrolyte imbalances have been addressed. The patient's toxic encephalopathy has resolved. The patient is back to his baseline. In fact, he was wanting to go back to [facility], but I am not so sure whether that would be appropriate since he tried to commit suicide by taking an intentional drug overdose, so he will probably need to be cleared by psych before he does that. At this point of time, he is stable for discharge. He will follow up with his primary care physician after discharge from psych facility. Dictated By: Ariana Doshi MD Date Dictated: 03/31/2024 11:47:53 Date Transcribed: 04/01/2024 01:10:48 /LIZETT/HENRI Receipt ID: [id number] CC: Primary Care Physician Authenticated by Ariana Doshi MD On 04/04/2024 11:29:11 PM at 1129 PATIENT NAME: ALEXIA WOODS [facility] 2024-03-31 11:47:00 [facility] ([facility]) DT PROGRESS NOTE REPORT#:[id number] REPORT STATUS: Signed REPORT INITIALIZATION DATE:03/31/24 TIME: 1147 PATIENT: ALEXIA WOODS UNIT #: [id number] [facility] AGE: 33 SEX: M ATTEND: Ariana Moore MD ADM AUTHOR: Ariana Doshi MD REPT SERVICE DT/TIME: 03/31/24 1147 * ALL edits or amendments must be made on the electronic/computer document * Progress Note Progress Note [id number] at 1148 RPT #:[id number] END OF REPORT [facility] 2024-03-30 15:52:00 [facility] ([facility]) Pulmonary Consultation Note REPORT#:[id number] REPORT STATUS: Signed REPORT INITIALIZATION DATE:03/30/24 TIME: 1552 PATIENT: ALEXIA WOODS UNIT #: [id number] [facility] AGE: 33 SEX: M ATTEND: Ariana Moore MD ADM AUTHOR: Keyshawn Contreras MD REPT SERVICE DT/TIME: 03/30/24 1552 * ALL edits or amendments must be made on the electronic/computer document * History of Present Illness HPI HPI: 33-year-old white male admitted with intentional drug overdose found to have Tegretol overdose along with Seroquel, Latuda and Keflex. Patient stayed in the ICU did not require intubation for low Merrill Coma Scale or hypoxia. Patient chest x-ray showed worsening within 24 hours of admission most likely had aspirated. Patient on room air no evidence of increased work of breathing denies any cough or shortness of breath. Patient denies any chest pain, wheeze, cough, hemoptysis, fever, chills, abdominal pain, nausea, vomiting or diarrhea. Patient said he smokes 1 pack a day and also does not do drugs. History - Adult longitudinal Allergies: Coded Allergies: No Known Allergies (03/23/24) Review of Systems Additional notes: A complete 12 point review of systems was performed, positive and pertinent negatives are recorded in the HPI above, the rest of the system were negative. Objective Physical Exam Vitals: Last Documented: Result Date Time Pulse Ox 91 03/30 1149 B/P 137/75 03/30 1149 B/P Mean 95.3 03/30 1149 O2 Delivery Room air 03/30 1149 Temp 98.6 03/30 1149 Pulse 57 03/30 1149 Resp 16 03/30 1149 FiO2 21 03/29 0702 O2 Flow Rate 3 03/28 2003 General appearance: alert, awake, oriented, no acute distress, pleasant, conversational, mental status normal, no respiratory distress Head/eyes: atraumatic, normocephalic, PERRL ENT: ENT: normal nose, normal pharynx, normal sinus Neck: full range of motion, non-tender, normal thyroid, supple/no meningismus, no bruit/NL carotids, no JVD, no lymphadenopathy Cardiovascular: normal S1/S2, regular rate rhythm, no murmur, no rub, no gallop Respiratory/chest: aerating well, clear to auscultation, symmetric expansion, no distress, no tenderness Abdomen: soft, non-tender, normal bowel sounds, no CVA tenderness, no distention , no guarding Genitourinary: no bladder distention, no flank pain, no urinary catheter Extremities: moves all, no clubbing, no cyanosis, no edema, no pedal edema Musculoskeletal: normal inspection Neuro/CHEMICAL PROCESSING SUPERVISOR: alert, oriented X 3, CNII-XII intact, no motor deficits, no sensory deficits Diagnosis, Assessment Plan Free Text DxA P Notes Free Text DxA P Notes: Community-acquired pneumonia versus aspiration pneumonia: Patient was admitted with drug overdose may have altered mental status causing aspiration. Patient chest x-ray on March 25 showed right lower lobe infiltrate with bilateral patchy changes. Patient clinically very stable on room air saturating well, labs did not show any evidence of leukocytosis. Patient received 5 days of IV Zosyn now on Augmentin. Patient may have some component of fluid overload, labs showed elevated BNP level CT scan showed some alveolar density agree with IV Lasix 40 mg daily. COPD: Patient is an active smoker too young to have severe COPD we will start him on long-acting beta agonist, inhaled corticosteroids and short acting muscarinic antagonist along with DuoNeb as needed to optimize his airway disease. Tobacco dependence: Patient is an active smoker on nicotine replacement therapy with nicotine patch, counseling for smoking cessation was completed. Suicide attempt with drug overdose Thank you for sharing his care with me I will follow him with you. at 1225 RPT #:[id number] END OF REPORT [facility] 2024-03-30 13:25:00 [id number] [place] [address] PATIENT NAME: ALEXIA WOODS ADMIT DATE: 03/24/24 ACCOUNT NO: [id number] [facility]GE[facility] 33 REPORT TYPE: PROGRESS NOTE SEX: M ADMITTING PHYSICIAN:Ariana Moore MD ATTENDING PHYSICIAN:Ariana Moore MD DATE: 03/30/2024 SUBJECTIVE: Mr. Woods seems to be doing okay. He is breathing okay. He is not on any oxygen. His chest x-ray still remains quite congested. His Tegretol level is all the way down to subtherapeutic level now. The patient's CT of the chest also suggest some infiltrates versus pulmonary edema versus infectious etiology and hence I will get a pulmonary consultation. PHYSICAL EXAMINATION VITAL SIGNS: Currently, vital signs are stable. HEENT: Shows no icterus. No pallor. LUNGS: Relatively clear to auscultation anteriorly. ASSESSMENT AND PLAN: The patient with intentional drug overdose. The patient seems to be doing well from that perspective. The patient does have some insomnia and anxiety, but his home medications have been continued. I am a little bit concerned about his pulmonary status. Once I have got clearance to the etiology of the reason for his pulmonary congestion , we will be able to clear him medically. For now, I will await for the results of the echo, which was done yesterday and see what the EF looks like, also we will get pulmonary input. Once I have got clearance from them, we will probably be able to get a psych clearance on him. Dictated By: Ariana Doshi MD Date Dictated: 03/30/2024 13:25:14 Date Transcribed: 03/30/2024 14:09:10 /NATALYA Receipt ID: [id number] Authenticated by Ariana Dsohi MD On 04/04/2024 11:29:10 PM at 1129 PATIENT NAME: ALEXIA WOODS [facility] 2024-03-30 13:25:00 [facility] ([facility]) DT PROGRESS NOTE REPORT#:[id number] REPORT STATUS: Signed REPORT INITIALIZATION DATE:03/30/24 TIME: 1325 PATIENT: ALEXIA WOODS UNIT #: [id number] ROOM/BED: [address] : 89 AGE: 33 SEX: M ATTEND: Ariana Moore MD ADM AUTHOR: Ariana Doshi MD REPT SERVICE DT/TIME: 03/30/24 1325 * ALL edits or amendments must be made on the electronic/computer document * Progress Note Progress Note [id number] at 1326 RPT #:[id number] END OF REPORT [facility] 2024-03-30 09:57:00 [id number] [place] [address] PATIENT NAME: ALEXIA WOODS ADMIT DATE: 03/24/24 ACCOUNT NO: [id number] ROOM NO: [facility] AGE: 33 REPORT TYPE: eECHOCARDIOGRAM REPORT SEX: M ADMITTING PHYSICIAN:Ariana Moore MD ATTENDING PHYSICIAN:Ariana Moore MD Name: ALEXIA WOODS Study Date: 03/30/2024 09:57 AMPatient Location: [place] [address] W URN: [id number] BP: 125/66 mmHg : 73 in Gender: Male Weight: 170 lb : 1990 Gender: Male Age: 33 yrs Ethnicity: W BSA: 2.0 m2 Reason For Study: CHF Cardiac Measurements with Normal Values: LA dimension: 4.2 cm 19-40 mm LVIDd: 6.0 cm 37-56 mm LVIDs: 3.9 cm - IVSd: 0.72 cm6-11 mm RVDd: 3.9 cm 7-23 mm MMode/2D Measurements Calculations LVPWd: 0.78 cm FS: 34.5 % EDV(Teich): 176.7 ml ESV(Teich): 65.9 ml EF(Teich): 62.7 % LVOT diam: 2.3 cm LVOT area: 4.1 cm2 Time Measurements Aortic R-R: 1.2 sec MM R-R int: 1.2 sec Aortic HR: 48.4 BPM MM HR: 48.8 BPM Doppler Measurements Calculations MV E max randee: 108.8 cm/sec MV V2 max: 119.4 cm/sec MV A max randee: 48.2 cm/sec MV max P.7 mmHg MV E/A: 2.3 MV V2 mean: 63.0 cm/sec MV mean P.0 mmHg MV V2 VTI: 41.2 cm MVA(VTI): 3.2 cm2 PATIENT NAME: ALEXIA WOODS Ao V2 max: 171.7 cm/sec MV dec slope: 422.5 cm/sec2 Ao max P.8 mmHg MV dec time: 0.26 sec Ao V2 mean: 120.8 cm/sec Ao mean P.6 mmHg Ao V2 VTI: 37.6 cm JAMIA(I,D): 3.5 cm2 JAMIA(V,D): 3.5 cm2 LV V1 max P.5 mmHg MR max randee: 458.4 cm/sec LV V1 mean P.5 mmHg MR max P.1 mmHg LV V1 max: 145.4 cm/sec LV V1 mean: 97.1 cm/sec LV V1 VTI: 32.2 cm CO(LVOT): 6.4 l/min PA V2 max: 118.5 cm/sec SV(LVOT): 131.8 ml PA max P.6 mmHg PI end-d randee: 90.3 cm/sec TR max randee: 223.4 cm/sec TR max P.1 mmHg RVSP(TR): 28.1 mmHg RAP systole: 8.0 mmHg Conclusions A complete two-dimensional transthoracic echocardiogram was performed (2D, M- mode, Doppler and color flow Doppler). Left ventricular systolic function is normal. Ejection Fraction = 55-60%. The left ventricular wall motion is normal. The right ventricle is normal in size and function. The left atrium is mildly dilated. There is trace mitral regurgitation. Right ventricular systolic pressure is normal. There is trace tricuspid regurgitation. There is no pericardial effusion. Left Ventricle The left ventricle is normal in size. There is normal left ventricular wall thickness. Left ventricular systolic function is normal. The transmitral spectral Doppler flow pattern is normal for age. Ejection Fraction = 55-60%. The left ventricular wall motion is normal. Right Ventricle The right ventricle is normal in size and function. There is normal right ventricular wall thickness. Atria The left atrium is mildly dilated. Right atrial size is normal. PATIENT NAME: ALEXIA WOODS Mitral Valve The mitral valve is normal. There is no evidence of mitral valve prolapse. There is trace mitral regurgitation. Tricuspid Valve The tricuspid valve is normal. There is trace tricuspid regurgitation. Right ventricular systolic pressure is normal. Aortic Valve The aortic valve opens well. No hemodynamically significant valvular aortic stenosis. No aortic regurgitation is present. Pulmonic Valve The pulmonic valve is not well visualized. Trace pulmonic valvular regurgitation. Great Vessels The aortic root is normal size. Pericardium/Pleural There is no pericardial effusion. Electronically signed by: Luis Clarke MD 03/31/2024 12:31 PM Ordering Physician: Ariana Doshi Referring Physician: Referred, Self Performed By: Roxana Felix at 1231 PATIENT NAME: ALEXIA WOODS [facility] 2024-03-29 11:38:00 [facility] ([facility] DT PROGRESS NOTE REPORT#:[id number] REPORT STATUS: Signed REPORT INITIALIZATION DATE:03/29/24 TIME: 113 PATIENT: ALEXIA WOODS UNIT #: [id number] ROOM/BED: [address] : 89 AGE: 33 SEX: M ATTEND: Ariana Moore MD ADM AUTHOR: Ariana Doshi MD REPT SERVICE DT/TIME: 03/29/24 1138 * ALL edits or amendments must be made on the electronic/computer document * Progress Note Progress Note [id number] at 1138 [facility] #:[id number] END OF REPORT [facility] 2024-03-29 11:38:00 [id number] [address] PATIENT NAME: ALEXIA WOODS ADMIT DATE: 03/24/24 ACCOUNT NO: [id number] ROOM NO: [facility] AGE: 33 REPORT TYPE: PROGRESS NOTE SEX: M ADMITTING PHYSICIAN:Ariana Moore MD ATTENDING PHYSICIAN:Ariana Moore MD DATE: 03/29/2024 SUBJECTIVE: Mr. Woods seems to be doing well. He seems to be breathing very well. He is off of his oxygen, although his chest x-ray is remarkably abnormal. The patient at his last Tegretol level done around the 03/25/2024, which is still above the therapeutic range at 13.6. Repeat level is pending. The patient needs to have medical clearance prior to him going for psych evaluation. PHYSICAL EXAMINATION: VITAL SIGNS: Currently, vital signs are stable. HEENT: Shows no icterus. No pallor. LUNGS: Relatively clear to auscultation. ABDOMEN: Soft. EXTREMITIES: Have no edema. LABORATORY DATA: Show his hemoglobin to be stable. White count and platelets are unremarkable. Chemistries are unremarkable. Mild degree of hypokalemia. LFTs unremarkable. The patient's Tegretol level is pending. Urinalysis is unremarkable and chest x-ray as I mentioned above. ASSESSMENT AND PLAN: The patient with intentional drug overdose. The patient seems to be doing well from that perspective. He is quite anxious and quite insomnic, which will be addressed. He has been on a combination of Lamictal as well as Seroquel and on Tegretol. The patient does seem to have some auditory hallucinations, which I suspect will need to be treated medically, but we will wait for psych to make a decision on that. We will resume his home medications and we will get him some sleep-inducing medications to help him sleep. Overall, he is making good progress. Once I have cleared his pulmonary and cardiac issues, we will be able to clear him medically. Dictated By: Ariana Doshi MD Date Dictated: 03/29/2024 11:38:33 Date Transcribed: 03/29/2024 12:10:18 GISEL Receipt ID: [id number] Authenticated by Ariana Doshi MD On 04/04/2024 11:29:09 PM PATIENT NAME: ALEXIA WOODS at 1129 PATIENT NAME: ALEXIA WOODS [facility] 2024-03-29 11:28:00 [id number] [place] [address] PATIENT NAME: ALEXIA WOODS ADMIT DATE: 03/24/24 ACCOUNT NO: [id number] ROOM NO: [facility] AGE: 33 REPORT TYPE: PROGRESS NOTE SEX: M ADMITTING PHYSICIAN:Ariana Moore MD ATTENDING PHYSICIAN:Ariana Moore MD DATE: 03/29/2024 SUBJECTIVE: Mr. Woods seems to be doing okay. He is on room air. He does not feel uncomfortable and is wanting to have some medicines to help him with anxiety and to help him with sleep. PHYSICAL EXAMINATION: VITAL SIGNS: Currently, vital signs are stable. HEENT: Shows no icterus. No pallor. LUNGS: Actually sound very clear, although his chest x-ray is significantly abnormal. ABDOMEN: Soft. EXTREMITIES: Have no edema. ASSESSMENT AND PLAN: The patient with intentional drug overdose. The patient's last Tegretol level was still elevated at 13.6. I will get a repeat one to make sure that it has normalized. The patient will be ____ Dictated By: Ariana Doshi MD Date Dictated: 03/29/2024 11:28:01 Date Transcribed: 03/29/2024 11:42:53 MARTY Receipt ID: [id number] Authenticated by Ariana Doshi MD On 04/04/2024 11:29:08 PM at 1129 PATIENT NAME: ALEXIA WOODS [facility] 2024-03-29 10:31:00 [facility] ([facility]) Hospitalist Progress Note REPORT#:[id number] REPORT STATUS: Signed REPORT INITIALIZATION DATE:03/29/24 TIME: 103 PATIENT: ALEXIA WOODS UNIT #: [id number] ROOM/BED: [address] : 89 AGE: 33 SEX: M ATTEND: Ariana Moore MD ADM AUTHOR: Ranulfo Brewer MD REPT SERVICE DT/TIME: 03/29/24 1031 * ALL edits or amendments must be made on the electronic/computer document * Subjective Chief complaint: AMS Drug overdose Objective General VS/I O: Vital Signs: Date Time Temp Pulse Resp B/P B/P Pulse O2 O2 Flow FiO2 Mean Ox Delivery Rate 03/29 0756 98.4 80 20 118/66 83.1 92 Room air / 0702 93 Room air 21 03/29 0330 98.2 57 18 145/83 103.9 96 Room air 06/05 0018 93 Room air 06/ 0007 98.2 60 18 154/78 103.2 96 Room air 06/ 2136 98.4 66 18 120/71 87.6 95 Room air 06/04 2112 93 06/ 2100 75 22 98 06/04 2045 77 12 100 06/04 2030 80 39 98 06/2014 74 26 100 06/ 2003 Nasal 3 cannula 03/28 2001 98.2 03/28 2000 61 31 149/83 111 100 06/04 1945 67 22 100 06/04 1930 65 26 100 06/04 1915 67 14 98 06/04 1900 64 31 100 06/04 1603 68 17 140/81 104 100 06/04 1600 98.6 06/04 1259 100 Room air 21 06/ 1201 63 25 122/87 98 94 06/04 1200 98.4 06/04 1120 100 Room air 21 06/04 1100 70 24 122/73 91 96 24 hour I O ending at 0700: 06/05 0700 06/04 1900 Intake Total 300 965.40 Output Total 0 Balance 300 965.40 Intake, IV 125.40 Intake, Oral 300 840 Number 3 Bowel Movements Number Voids 3 Output, Urine 0 PATIENT WEIGHT: Weight (lb): 170 Weight (oz): 6.68 Weight (kg): 77.300 Medications: Active Meds + DC'd Last 24 Hrs Albuterol/Ipratropium (DUONEB 2.5-0.5MG/3ML SOLN) 3 ML RTQ6H WA NEB Lorazepam (ATIVAN) 1 MG ONCE ONE IV (DC) Amoxicillin/Clavulanate Potassium (AUGMENTIN 875) 875 MG Q12H PO (CKD) Calcium Carbonate (TUMS) 500 MG BID PRN PRN PO Enoxaparin Sodium (LOVENOX) 40 MG DAILY SUBQ Prednisone (Deltasone) 40 MG DAILY PO Calcium Carbonate (TUMS) 1,000 MG TID MEALS PO Nicotine (NICODERM) 21 MG DAILY TRANSDERM (CKD) Guaifenesin/Codeine Phosphate (ROBITUSSIN-AC) 10 ML Q6H PRN PRN PO Benzonatate (TESSALON PERLE) 200 MG TID PRN PRN PO Albuterol/Ipratropium (DUONEB 2.5-0.5MG/3ML SOLN) 3 ML RTQ6H NEB (DC) Mupirocin (BACTROBAN) 1 APPLIC BID NASAL Acetaminophen (TYLENOL) 650 MG Q4H PRN PRN RECTAL Calcium Gluconate (Calcium Gluconate 1 GM/NS 50 mL (B2)) 50 ML ASDIR IV (CKD) Flumazenil (ROMAZICON ) 0.2 MG ASDIR PRN IV Magnesium Sulfate (MAGNESIUM SULFATE 2GM/50ML BAG) 50 ML Q1H PRN PRN IV Magnesium Sulfate/Dextrose (MAGNESIUM SULFATE 1GM/D5W 100ML) 100 ML ASDIR PRN IV Ondansetron HCl (ZOFRAN) 4 MG Q6H PRN PRN IV Potassium Chloride (K-DUR) 20 MEQ ASDIR PRN PO Potassium Chloride (K-DUR) 40 MEQ ASDIR PRN PO Potassium Chloride (K-DUR) 40 MEQ ASDIR PRN PO Potassium Chloride (KCL 10 MEQ/100ML) 100 ML Q1H PRN PRN IV Potassium Chloride (KCL 10 MEQ/100ML) 100 ML Q1H PRN PRN IV Potassium Chloride (KCL 10 MEQ/100ML) 100 ML Q1H PRN PRN IV Potassium Chloride (KCL 20 MEQ/100 ML) 100 ML Q1H PRN PRN IV Potassium Chloride (KCL 20 MEQ/100 ML) 100 ML Q1H PRN PRN IV Potassium Chloride (KCL 20 MEQ/100 ML) 100 ML Q1H PRN PRN IV Potassium Phos/Sodium Phos (PHOS-NAK PACKET) 1 PKT ASDIR PRN PO (CKD) Potassium Phosphate (Potassium Phosphate) 15 MMOL ASDIR PRN IV Sodium Chloride (NORMAL SALINE 250 ML) 250 ML Potassium Phosphate (Potassium Phosphate) 30 MMOL ASDIR PRN IV Sodium Chloride (SODIUM CHLORIDE 0.9% 500 ML) 500 ML Physical Exam Cardiovascular: regular rate rhythm Respiratory: decreased breath sounds Abdomen: soft Neuro/CHEMICAL PROCESSING SUPERVISOR: altered mental status Results Findings/Data: Laboratory Tests 03/29 648 Chemistry Sodium (133 - 144 mmol/L) 141.0 Potassium (3.5 - 5.1 mmol/L) 3.3 L Chloride (98 - 107 mmol/L) 108 H Carbon Dioxide (20 - 31 mEq/L) 27 Anion Gap (4.0 - 15.0 GAP calc) 6.0 BUN (7 - 18 MG/DL) 16 Creatinine (0.55 - 1.30 mg/dL) 0.95 Glomerular Filtr Rate (>60 estGFR) 108 Glucose (70 - 110 MG/DL) 96 Calcium (8.7 - 10.4 MG/DL) 8.8 Magnesium (1.8 - 2.4 MG/DL) 1.8 Specimen Appearance (1 NORMAL Index/DL) NEGATIVE Specimen Hemolysis (1 NORMAL Index/DL) NEGATIVE Laboratory Tests 03/29 648 Hematology WBC (4.1 - 12.1 K/mm3) 10.7 RBC (3.8 - 5.5 M/mm3) 3.29 L Hgb (10.6 - 15.8 G/DL) 10.1 L Hct (31.8 - 47.4 %) 29.5 L MCV (80.1 - 101.1 fL) 89.7 MCH (25.3 - 35.3 pg) 30.7 MCHC (32.7 - 35.1 G/DL) 34.2 RDW (12.2 - 16.4 %) 12.8 Plt Count (155 - 337 K/mm3) 222 MPV (7.6 - 10.4 fL) 9.4 Gran % (37.8 - 82.6 %) 53.1 Lymph % (Auto) (14.1 - 45.4 %) 28.4 [place] % (Auto) (2.5 - 11.7 %) 14.0 H Eos % (Auto) (0.0 - 6.2 %) 1.9 Baso % (Auto) (0.0 - 2.6 %) 0.3 Gran # (2.0 - 13.7 k/mm3) 5.66 Lymph # (Auto) (0.6 - 3.8 K/mm3) 3.02 [place] # (Auto) (0.11 - 0.59 K/mm3) 1.49 H Eos # (Auto) (0.0 - 0.4 K/mm3) 0.20 Baso # (Auto) (0.0 - 0.1 K/mm3) 0.03 Immature Gran % (0.0 - 2.0 %) 2.3 H Nucleated RBC % (0.0 - 1.0 /100WBC%) 0.0 Nucleated RBCs # (0.00 - 0.05 K/mm3) 0.00 Radiology data: 33-year-old gentleman with unknown past medical history presents with concern for intentional overdose. Per report patient told his that he did not kill self at approximately 4 AM. At 6 AM patient was found that that per report he ingested multiple medications including Keflex, Seroquel, Tegretol, Latuda. Patient received Narcan by EMS without response. Patient arrived in restraints to the emergency department. In the emergency department urine drug screen positive for amphetamines, acetaminophen negative. Chest x-ray without acute finding and CT head was unremarkable. Patient received Ativan and droperidol. Patient was requiring 4 point restraints admitted to ICU. Do not sedate the patient with the benzodiazepines. Avoid any neuroleptic medications on the patient as well. Nonpharmacological methods were to be adopted if the patient gets altered mentation. Subjective. Intubated. Physical examination: General appearance: Intubated Neck: No JVD no lymphadenopathy no thyromegaly Cardiovascular: Regular rythm, rate, normal first and second heart sounds, normal capillary refill Respiratory: Bilateral equal air entry with no rhonchi or wheezing Abdomen: Soft nontender, bowel sounds positive, no visceromegaly Musculoskeletal: No joint deformity noted Extremities: Peripheral pulses intact +2 dorsalis pedis 33-year-old gentleman with unknown past medical history presents with concern for intentional overdose on home medication, including overdose on Tegretol Intentional overdose: Acetaminophen, salicylate levels negative. Urine drug screen positive for amphetamines. CT head unremarkable. Supportive care with Precedex, benzodiazepines, antipsychotics as needed for agitation. Psychiatric evaluation once medically cleared. QTc monitoring. Improving Tegretol levels (delayed results given that these are send out test) Acute hypoxic respiratory failure, with community-acquired right lower lobe pneumonia -03/25/2024 chest x-ray: Developing dense right lower lobe infiltrate, as well as patchy pulmonary opacities in the left midlung -Liberated from BiPAP, now stable on Vapotherm, and will continue to wean down off of Vapotherm -Wean FiO2 for goal SpO2 greater than 92% -Empiric antibiotics with Zosyn Also: 03/24/24 blood cultures growing bacillus species (not anthrax), due to sample contamination Will monitor sutures on the lateral fingers of the left hand -will determine if these sutures can be removed soon DVT prophylaxis: SCDS, prophylactic subcutaneous Lovenox GI prophylaxis: Not indicated unless prolonged n.p.o. All pertinant labs, Imaging, EKG, telemetry data,and medical records are reviewed by me personally. I have discussed the available findings, initial diagnosis and related differentials with the patient/rn wound care including RN. All concerns and questions are answered to the best of my abilities based on the available data.I have initiated the plan of care based on preliminary diagnosis, requested appopriate consultations with labs/imagings.This note was partially created using a voice-recognition transcribing system. I have reviewed my note and incorrect words or phrases may have been missed during proofreading. Please interpret accordingly. Patient/rn wound care verbalizes understanding of the plan of care. Time spent on the patient is 15-minute at 1031 RPT #:[id number] END OF [facility] 2024-03-28 12:29:00 [facility] [place] ([facility] Hospitalist Critical Care Note REPORT#:[id number] REPORT STATUS: Signed REPORT INITIALIZATION DATE:03/28/24 TIME: 1229 PATIENT: ALEXIA WOODS UNIT #: [id number] ROOM/BED: [facility] : 89 AGE: 33 SEX: M ATTEND: Ariana Moore MD ADM AUTHOR: Ranulfo Brewer MD REPT SERVICE DT/TIME: 03/28/24 1226 * ALL edits or amendments must be made on the electronic/computer document * Subjective Chief complaint: AMS Drug overdose Diagnosis, Assessment Plan Free Text A P: 33-year-old gentleman with unknown past medical history presents with concern for intentional overdose. Per report patient told his that he did not kill self at approximately 4 AM. At 6 AM patient was found that that per report he ingested multiple medications including Keflex, Seroquel, Tegretol, Latuda. Patient received Narcan by EMS without response. Patient arrived in restraints to the emergency department. In the emergency department urine drug screen positive for amphetamines, acetaminophen negative. Chest x-ray without acute finding and CT head was unremarkable. Patient received Ativan and droperidol. Patient was requiring 4 point restraints admitted to ICU. Subjective. Intubated. Physical examination: General appearance: Intubated Neck: No JVD no lymphadenopathy no thyromegaly Cardiovascular: Regular rythm, rate, normal first and second heart sounds, normal capillary refill Respiratory: Bilateral equal air entry with no rhonchi or wheezing Abdomen: Soft nontender, bowel sounds positive, no visceromegaly Musculoskeletal: No joint deformity noted Extremities: Peripheral pulses intact +2 dorsalis pedis 33-year-old gentleman with unknown past medical history presents with concern for intentional overdose on home medication, including overdose on Tegretol Intentional overdose: Acetaminophen, salicylate levels negative. Urine drug screen positive for amphetamines. CT head unremarkable. Supportive care with Precedex, benzodiazepines, antipsychotics as needed for agitation. Psychiatric evaluation once medically cleared. QTc monitoring. Improving Tegretol levels (delayed results given that these are send out test) Acute hypoxic respiratory failure, with community-acquired right lower lobe pneumonia -03/25/2024 chest x-ray: Developing dense right lower lobe infiltrate, as well as patchy pulmonary opacities in the left midlung -Liberated from BiPAP, now stable on Vapotherm, and will continue to wean down off of Vapotherm -Wean FiO2 for goal SpO2 greater than 92% -Empiric antibiotics with Zosyn Also: 03/24/24 blood cultures growing bacillus species (not anthrax), due to sample contamination Will monitor sutures on the lateral fingers of the left hand -will determine if these sutures can be removed soon DVT prophylaxis: SCDS, prophylactic subcutaneous Lovenox GI prophylaxis: Not indicated unless prolonged n.p.o. All pertinant labs, Imaging, EKG, telemetry data,and medical records are reviewed by me personally. I have discussed the available findings, initial diagnosis and related differentials with the patient/rn wound care including RN. All concerns and questions are answered to the best of my abilities based on the available data.I have initiated the plan of care based on preliminary diagnosis, requested appopriate consultations with labs/imagings.This note was partially created using a voice-recognition transcribing system. I have reviewed my note and incorrect words or phrases may have been missed during proofreading. Please interpret accordingly. Patient/rn wound care verbalizes understanding of the plan of care. Critical care time spent on the patient is 35 minutes at 1231 RPT #:[id number] END OF [facility] 2024-03-28 09:14:00 [facility] ([facility]) DT PROGRESS NOTE REPORT#:[id number] REPORT STATUS: Signed REPORT INITIALIZATION DATE:03/28/24 TIME: 913 PATIENT: ALEXIA WOODS UNIT #: [id number] ROOM/BED: [address] : [address] AGE: 33 SEX: M ATTEND: Ariana Moore MD ADM AUTHOR: Chuckie Gibbs MD REPT SERVICE DT/TIME: 03/28/24 0914 * ALL edits or amendments must be made on the electronic/computer document * See Addendum Progress Note Progress Note Subjective Doing much better today, now off bilevel. On low-dose Precedex. Review of Systems Dyspnea, cough All systems rev neg: except as marked (no other complaints) Physical Exam General appearance: alert, awake, oriented, no acute distress, conversational Head/eyes: atraumatic, clear cornea ENT: moist mucosal membranes Neck: no JVD Cardiovascular: normal capillary refill, normal heart sounds, regular rate and rhythm, normal S1/S2 Respiratory: aerating well, clear to auscultation, symmetric expansion, no distress, Vapotherm Abdomen: soft, non-tender Extremities: moves all Musculoskeletal normal inspection Neuro/CHEMICAL PROCESSING SUPERVISOR: alert, oriented Skin: dry Psychiatry: Pleasant Free text A P: 33-year-old gentleman with unknown past medical history presents with concern for intentional overdose on home medication, including overdose on Tegretol Intentional overdose: Acetaminophen, salicylate levels negative. Urine drug screen positive for amphetamines. CT head unremarkable. Supportive care with Precedex, benzodiazepines, antipsychotics as needed for agitation. Psychiatric evaluation once medically cleared. QTc monitoring. Improving Tegretol levels (delayed results given that these are send out test) Acute hypoxic respiratory failure, with community-acquired right lower lobe pneumonia -03/27/2024 chest x-ray: Stable bilateral pulmonary opacities secondary to pulmonary edema -Now on nasal cannula only -Empiric antibiotics with Zosyn, will change to Flagyl and cefdinir through 2023 Also: 03/24/24 blood cultures growing bacillus species (not anthrax), due to sample contamination Will monitor sutures on the lateral fingers of the left hand -sutures will need to be removed 03/31/2024 DVT prophylaxis: SCDS, prophylactic subcutaneous Lovenox GI prophylaxis: Not indicated unless prolonged n.p.o. Dispo: Medical floor Resuscitation status: Full code Once medically cleared, the patient will need psychiatric evaluation for suicide attempt via medication overdose at home. at 0917 Addendum 1: 03/28/24 09 by Chuckie Gibbs MD Will change patient to Augmentin for aspiration pneumonia. at 0921 RPT #:[id number] [facility] 2024-03-27 10:41:00 [facility] Jaquan Castro (LYNDA) MARY JO PROGRESS NOTE REPORT#:[id number] REPORT STATUS: Signed REPORT INITIALIZATION DATE:03/27/24 TIME: 1041 PATIENT: ALEXIA WOODS UNIT #: [id number] ROOM/BED: [address] : 89 AGE: 33 SEX: M ATTEND: Ariana Moore MD ADM AUTHOR: Chuckie Gibbs MD REPT SERVICE DT/TIME: 03/27/24 1041 * ALL edits or amendments must be made on the electronic/computer document * Progress Note Progress Note Subjective Currently on bilevel Review of Systems Dyspnea, cough All systems rev neg: except as marked (no other complaints) Physical Exam General appearance: alert, awake, oriented, no acute distress, conversational Head/eyes: atraumatic, clear cornea ENT: moist mucosal membranes Neck: no JVD Cardiovascular: normal capillary refill, normal heart sounds, regular rate and rhythm, normal S1/S2 Respiratory: aerating well, clear to auscultation, symmetric expansion, no distress, Vapotherm Abdomen: soft, non-tender Extremities: moves all Musculoskeletal normal inspection Neuro/CHEMICAL PROCESSING SUPERVISOR: alert, oriented Skin: dry Psychiatry: unable to evaluate Free text A P: 33-year-old gentleman with unknown past medical history presents with concern for intentional overdose on home medication, including overdose on Tegretol Intentional overdose: Acetaminophen, salicylate levels negative. Urine drug screen positive for amphetamines. CT head unremarkable. Supportive care with Precedex, benzodiazepines, antipsychotics as needed for agitation. Psychiatric evaluation once medically cleared. QTc monitoring. Improving Tegretol levels (delayed results given that these are send out test) Acute hypoxic respiratory failure, with community-acquired right lower lobe pneumonia -03/27/2024 chest x-ray: Stable bilateral pulmonary opacities secondary to pulmonary edema -Alternates between BiPAP and Vapotherm -Wean FiO2 for goal SpO2 greater than 92% -Empiric antibiotics with Zosyn Also: 03/24/24 blood cultures growing bacillus species (not anthrax), due to sample contamination Will monitor sutures on the lateral fingers of the left hand -will determine if these sutures can be removed soon DVT prophylaxis: SCDS, prophylactic subcutaneous Lovenox GI prophylaxis: Not indicated unless prolonged n.p.o. Diispo: ICU Resuscitation status: Full code Once medically cleared, the patient will need psychiatric evaluation for suicide attempt via medication overdose at home. Critical care time 37 minutes at 1118 RPT #:[id number] END OF [facility] 2024-03-26 22:00:00 [facility] ([facility]) Critical Care Progress Note REPORT#:[id number] REPORT STATUS: Signed REPORT INITIALIZATION DATE:03/26/24 TIME: 2199 PATIENT: ALEXIA WOODS UNIT #: [id number] ROOM/BED: ICU12-W : 89 AGE: 33 SEX: M ATTEND: Ariana Moore MD ADM AUTHOR: Star Peters MD REPT SERVICE DT/TIME: 03/26/242199 * ALL edits or amendments must be made on the electronic/computer document * Subjective HPI: 33-year-old gentleman with unknown past medical history presents with concern for intentional overdose. Per report patient told his that he did not kill self at approximately 4 AM. At 6 AM patient was found that that per report he ingested multiple medications including Keflex, Seroquel, Tegretol, Latuda. Patient received Narcan by EMS without response. Patient arrived in restraints to the emergency department. In the emergency department urine drug screen positive for amphetamines, acetaminophen negative. Chest x-ray without acute finding and CT head was unremarkable. Patient received Ativan and droperidol. Patient was requiring 4 point restraints admitted to ICU. Review of Systems Respiratory: Reports: productive cough (sputum). Denies: SOB. Cardiovascular: Denies: chest pain. GI: Denies: abdominal pain, nausea, vomiting. All systems rev neg: except as marked (no other complaints) Objective General VS/I O Laboratory Tests: 03/26 03/26 0312 0302 Chemistry Sodium (133 - 144 mmol/L) 139.0 Potassium (3.5 - 5.1 mmol/L) 4.8 Chloride (98 - 107 mmol/L) 109 H Carbon Dioxide (20 - 31 mEq/L) 25 Anion Gap (4.0 - 15.0 GAP calc) 5.0 BUN (7 - 18 MG/DL) 22 H Creatinine (0.55 - 1.30 mg/dL) 0.96 Glomerular Filtr Rate (>60 estGFR) 106 Glucose (70 - 110 MG/DL) 102 POC Glucose (70 - 119 MG/DL) 101 Calcium (8.7 - 10.4 MG/DL) 8.8 Phosphorus (2.5 - 4.9 MG/DL) 2.8 Magnesium (1.8 - 2.4 MG/DL) 2.0 Specimen Appearance (1 NORMAL Index/DL) NEGATIVE Specimen Hemolysis (1 NORMAL Index/DL) 1 NORMAL <10 MG Hematology WBC (4.1 - 12.1 K/mm3) 10.8 RBC (3.8 - 5.5 M/mm3) 3.51 L Hgb (10.6 - 15.8 G/DL) 10.6 Hct (31.8 - 47.4 %) 32.7 MCV (80.1 - 101.1 fL) 93.2 MCH (25.3 - 35.3 pg) 30.2 MCHC (32.7 - 35.1 G/DL) 32.4 L RDW (12.2 - 16.4 %) 13.3 Plt Count (155 - 337 K/mm3) 144 L MPV (7.6 - 10.4 fL) 10.5 H Gran % (37.8 - 82.6 %) 76.9 Lymph % (Auto) (14.1 - 45.4 %) 14.3 [place] % (Auto) (2.5 - 11.7 %) 5.4 Eos % (Auto) (0.0 - 6.2 %) 2.4 Baso % (Auto) (0.0 - 2.6 %) 0.3 Gran # (2.0 - 13.7 k/mm3) 8.31 Lymph # (Auto) (0.6 - 3.8 K/mm3) 1.54 [place] # (Auto) (0.11 - 0.59 K/mm3) 0.58 Eos # (Auto) (0.0 - 0.4 K/mm3) 0.26 Baso # (Auto) (0.0 - 0.1 K/mm3) 0.03 Immature Gran % (0.0 - 2.0 %) 0.7 Nucleated RBC % (0.0 - 1.0 /100WBC%) 0.0 Nucleated RBCs # (0.00 - 0.05 K/mm3) 0.00 Microbiology: Date/Time Procedure - Status Source Growth 03/26 0910 MRSA Screen - COMP NASAL Recent Impressions: RADIOLOGY - XR CHEST 1 V 03/26 0500 Report Impression - Status: SIGNED Entered: 03/26/2024 0625 IMPRESSION: No significant change. Impression By: [email or web address] - Cordell Canela MD Current Medications Sig/Chance Start time Last Medication Dose Route Stop Time Status Admin Vancomycin/Sodium 500 ML Q12H 03/26 1100 DC 03/26 Chloride IV 04/04 1101 1057 Vancomycin HCl 2,500 MG ONCE ONE 03/25 2315 DC 03/25 Sodium Chloride 500 ML IV 03/26 0144 2321 Vancomycin HCl 2,250 MG ONCE ONE 03/25 2245 DC Sodium Chloride 500 ML IV 03/26 0114 Miscellaneous 1 EACH ASDIR 03/25 2145 DC Information IV 04/24 2146 Albuterol/Ipratropium 3 ML RTQ6H 03/25 2100 AC 03/26 NEB 04/24 210 1923 Lactated Ringer's 1,000 ML .[id number] 03/25 2100 AC 03/26 IV 04/24 210 0916 Piperacillin Sod/ 3.375 GM Q8H 03/25 1300 AC 03/26 Tazobactam Sod IV 03/31 205 2117 Sodium Chloride 100 ML Dexmedetomidine/ 250 ML ASDIR 03/24 0930 AC 03/26 Sodium Chloride IV 04/23 0931 1808 Enoxaparin Sodium 30 MG Q12H 03/24 06 AC 03/26 SUBQ 04/23 0601 1810 Mupirocin 1 APPLIC BID 03/24 06 AC 03/26 NASAL 04/23 0601 2117 Acetaminophen 650 MG Q4H PRN PRN 03/24 0430 AC RECTAL 04/23 0431 Calcium Gluconate 50 ML ASDIR 03/24 0430 CKD IV 04/23 0431 Flumazenil 0.2 MG ASDIR PRN 03/24 0430 AC IV 04/23 0431 Lorazepam 2 MG Q2H PRN PRN 03/24 0430 AC IV 04/23 0431 Lorazepam 4 MG Q2H PRN PRN 03/24 0430 AC 03/24 IV 04/23 0431 1538 Magnesium Sulfate 50 ML Q1H PRN PRN 03/24 0430 AC IV 04/23 0431 Magnesium Sulfate/ 100 ML ASDIR PRN 03/24 0430 AC 03/25 Dextrose IV 04/23 0431 0406 Ondansetron HCl 4 MG Q6H PRN PRN 03/24 0430 AC IV 04/23 0431 Potassium Chloride 20 MEQ ASDIR PRN 03/24 0430 AC PO 04/23 0431 Potassium Chloride 40 MEQ ASDIR PRN 03/24 0430 AC PO 04/23 0431 Potassium Chloride 40 MEQ ASDIR PRN 03/24 0430 AC PO 04/23 0431 Potassium Chloride 100 ML Q1H PRN PRN 03/24 0430 AC IV 04/23 0431 Potassium Chloride 100 ML Q1H PRN PRN 03/24 0430 AC IV 04/23 0431 Potassium Chloride 100 ML Q1H PRN PRN 03/24 0430 AC IV 04/23 0431 Potassium Chloride 100 ML Q1H PRN PRN 03/24 0430 AC IV 04/23 0431 Potassium Chloride 100 ML Q1H PRN PRN 03/24 0430 AC IV 04/23 0431 Potassium Chloride 100 ML Q1H PRN PRN 03/24 0430 AC IV 04/23 0431 Potassium Phos/ 1 PKT ASDIR PRN 03/24 0430 CKD Sodium Phos PO 04/23 0431 Potassium Phosphate 15 MMOL ASDIR PRN 03/24 0430 AC Sodium Chloride 250 ML IV 04/23 0431 Potassium Phosphate 30 MMOL ASDIR PRN 03/24 0430 AC Sodium Chloride 500 ML IV 04/23 0431 Lactated Ringer's 1,000 ML BOLUS ONCE ONE 03/24 415 DC 03/24 IV 05/04 24 hours ending at 0700 /02 0700 03/25 2300 03/25 1500 Intake Total 1733.20 741.00 Output Total 420 286 Balance 1313.20 455.00 Intake, IV 1733.20 741.00 Output, Urine 420 286 Patient 92.4 kg Weight Weight Bed scale Measurement Method 24 Hour I O Total 03/26 0700 Intake Total 2474.20 Output Total 706 Balance 1768.20 Last Documented: Result Date Time Pulse Ox 98 03/26 2030 B/P 118/66 03/26 2030 B/P Mean 86 03/26 2030 Pulse 90 03/26 2030 Resp 31 03/26 2030 Temp 99.5 03/26 2000 FiO2 60 03/26 2000 O2 Delivery High flow nasal cannula 03/26 2000 O2 Flow Rate 30 03/26 2000 24 hour I O ending at 0700: 06/02 0700 06 1900 Intake Total 1733.20 741.00 Output Total 420 286 Balance 1313.20 455.00 Intake, IV 1733.20 741.00 Output, Urine 420 286 Patient 92.4 kg Weight Weight Bed scale Measurement Method PATIENT WEIGHT: Weight (lb): 203 Weight (oz): 11.31 Weight (kg): 92.400 Physical Exam General appearance: alert, awake, oriented, no acute distress, conversational, mental status normal, Vapotherm Head/eyes: atraumatic, clear cornea ENT: moist mucosal membranes Neck: no JVD Cardiovascular: normal capillary refill, normal heart sounds, regular rate and rhythm, normal S1/S2 Respiratory: aerating well, clear to auscultation, symmetric expansion, no distress, Vapotherm Abdomen: soft, non-tender Extremities: moves all Musculoskeletal normal inspection Neuro/CHEMICAL PROCESSING SUPERVISOR: alert, oriented X 3, CNII-XII intact, normal speech, no motor deficits Skin: dry Psychiatry: unable to evaluate Diagnosis, Assessment Plan Free text A P: 33-year-old gentleman with unknown past medical history presents with concern for intentional overdose on home medication, including overdose on Tegretol Intentional overdose: Acetaminophen, salicylate levels negative. Urine drug screen positive for amphetamines. CT head unremarkable. Supportive care with Precedex, benzodiazepines, antipsychotics as needed for agitation. Psychiatric evaluation once medically cleared. QTc monitoring. Improving Tegretol levels (delayed results given that these are send out test) Acute hypoxic respiratory failure, with community-acquired right lower lobe pneumonia -03/25/2024 chest x-ray: Developing dense right lower lobe infiltrate, as well as patchy pulmonary opacities in the left midlung -Liberated from BiPAP, now stable on Vapotherm, and will continue to wean down off of Vapotherm -Wean FiO2 for goal SpO2 greater than 92% -Empiric antibiotics with Zosyn Also: 03/24/24 blood cultures growing bacillus species (not anthrax), due to sample contamination Will monitor sutures on the lateral fingers of the left hand -will determine if these sutures can be removed soon DVT prophylaxis: SCDS, prophylactic subcutaneous Lovenox GI prophylaxis: Not indicated unless prolonged n.p.o. Diispo: ICU Resuscitation status: Full code Once medically cleared, the patient will need psychiatric evaluation for suicide attempt via medication overdose at home. Critical care time 35 minutes at 2205 RPT #:[id number] [facility] 2024-03-26 11:23:00 [facility] ([facility]) Hospitalist Progress Note REPORT#:[id number] REPORT STATUS: Signed REPORT INITIALIZATION DATE:03/26/24 TIME: 1122 PATIENT: ALEXIA WOODS UN[facility] #: [id number] [facility] AGE: 33 SEX: M ATTEND: Ariana Moore MD ADM AUTHOR: Kye Leslie MD REPT SERVICE DT/TIME: 03/26/24 1123 * ALL edits or amendments must be made on the electronic/computer document * Subjective Chief complaint: AMS Drug overdose Free Text Subj Notes Free Text Subj Notes: somulent. no acute events. Review of Systems Unable to obtain due to: pt condition. Objective Physical Exam Cardiovascular: regular rate rhythm Respiratory: decreased breath sounds Abdomen: soft Neuro/CHEMICAL PROCESSING SUPERVISOR: altered mental status Diagnosis, Assessment Plan Free Text DxA P Notes Free text DxA P notes: Toxic encephalopathy Treat underlying condition Electrolyte balance Drug overdose Electrolyte balance Hydration Treat with benzos Psych evaluation Possible S suicide attempt 1 is to 1 watch CM consult 03/25 ON bipap. continue. Restraints ordered. Continue suicide precautions. Once patient is medically stable will need psych evaluation and likely inpatient psych placement 03/26 vapotherm. stable. dc vancomycin. continue zosyn. continue care for pna. at 1658 RPT #:[id number] END OF [facility] 2024-03-26 08:20:00 [facility] ([facility]) Pharmacy Prog.Note-Vancomycin REPORT#:[id number] REPORT STATUS: Signed REPORT INITIALIZATION DATE:03/26/24 TIME: 819 PATIENT: ALEXIA WOODS UNIT #: [id number] ROOM/BED: [facility] : 89 AGE: 33 SEX: M ATTEND: Ariana Moore MD ADM AUTHOR: Marcello Falcon [facility] REPT SERVICE DT/TIME: 03/26/24 0820 * ALL edits or amendments must be made on the electronic/computer document * Vancomycin Vancomycin Medication Therapy Goal: AUC 400-600 mg*hr/L Indication for treatment: BLOOD STREAM INFECTION Current therapy: Medication(s) Ordered: Anti-Infective Agents Sig/Chance Start time Last Medication Dose Route Stop Time Status Admin Vancomycin/Sodium 500 ML Q12H 03/26 1100 AC Chloride IV 04/04 1101 Vancomycin HCl 2,500 MG ONCE ONE 03/25 2315 DC 03/25 Sodium Chloride 500 ML IV 03/26 0144 2321 Vancomycin HCl 2,250 MG ONCE ONE 03/25 2245 DC Sodium Chloride 500 ML IV 03/26 0114 Piperacillin Sod/ 3.375 GM Q8H 03/25 1300 AC 03/26 Tazobactam Sod IV 03/31 205 0559 Sodium Chloride 100 ML Piperacillin Sod/ 4.5 GM Q8H 03/24 2100 DC 03/25 Tazobactam Sod IV 03/31 205 0557 Sodium Chloride 100 ML Autonomic Drugs Sig/Chance Start time Last Medication Dose Route Stop Time Status Admin Albuterol/Ipratropium 3 ML RTQ6H 03/25 2100 AC 03/26 NEB 04/24 2101 0722 Blood Formation,Coagulation Sig/Chance Start time Last Medication Dose Route Stop Time Status Admin Enoxaparin Sodium 30 MG Q12H 03/24 06 AC 03/26 SUBQ 04/23 0601 0609 Central Nervous System Agents Sig/Chance Start time Last Medication Dose Route Stop Time Status Admin Magnesium Sulfate/ 100 ML Q1H 03/25 1100 DC 03/25 Dextrose IV 03/25 1359 1304 Dexmedetomidine/ 250 ML ASDIR 03/24 0930 AC 03/25 Sodium Chloride IV 04/23 0931 2150 Acetaminophen 650 MG Q4H PRN PRN 03/24 0430 AC RECTAL 04/23 0431 Lorazepam 2 MG Q2H PRN PRN 03/24 0430 AC IV 04/23 0431 Lorazepam 4 MG Q2H PRN PRN 03/24 0430 AC 03/24 IV 04/23 0431 1538 Magnesium Sulfate 50 ML Q1H PRN PRN 03/24 0430 AC IV 04/23 0431 Magnesium Sulfate/ 100 ML ASDIR PRN 03/24 0430 AC 03/25 Dextrose IV 04/23 0431 0406 Electrolytic, Caloric, And Nataliia Sig/Chance Start time Last Medication Dose Route Stop Time Status Admin Lactated Ringer's 1,000 ML .[id number] 03/25 2100 AC 03/25 IV 04/24 Calcium Gluconate 50 ML ASDIR 03/24 0430 CKD IV 04/23 0431 Potassium Chloride 20 MEQ ASDIR PRN 03/24 0430 AC PO 04/23 0431 Potassium Chloride 40 MEQ ASDIR PRN 03/24 0430 AC PO 04/23 0431 Potassium Chloride 40 MEQ ASDIR PRN 03/24 0430 AC PO 04/23 0431 Potassium Chloride 100 ML Q1H PRN PRN 03/24 0430 AC IV 04/23 0431 Potassium Chloride 100 ML Q1H PRN PRN 03/24 0430 AC IV 04/23 0431 Potassium Chloride 100 ML Q1H PRN PRN 03/24 0430 AC IV 04/23 0431 Potassium Chloride 100 ML Q1H PRN PRN 03/24 0430 AC IV 04/23 0431 Potassium Chloride 100 ML Q1H PRN PRN 03/24 0430 AC IV 04/23 0431 Potassium Chloride 100 ML Q1H PRN PRN 03/24 0430 AC IV 04/23 0431 Potassium Phos/ 1 PKT ASDIR PRN 03/24 0430 CKD Sodium Phos PO 04/23 0431 Potassium Phosphate 15 MMOL ASDIR PRN 03/24 043 AC Sodium Chloride 250 ML IV 04/23 0431 Potassium Phosphate 30 MMOL ASDIR PRN 03/24 0430 AC Sodium Chloride 500 ML IV 04/23 0431 Lactated Ringer's 1,000 ML BOLUS ONCE ONE 03/24 415 DC 03/24 IV 05/04 Gastrointestinal Drugs Sig/Chance Start time Last Medication Dose Route Stop Time Status Admin Famotidine 20 MG Q12H 03/24 600 DC 03/25 IV 04/23 601 0558 Ondansetron HCl 4 MG Q6H PRN PRN 03/24 043 AC IV 04/23 043 Miscellaneous Therapeutic Agen Sig/Chance Start time Last Medication Dose Route Stop Time Status Admin Flumazenil 0.2 MG ASDIR PRN 03/24 043 AC IV 04/23 0431 Skin And Mucous Membrane Agent Sig/Chance Start time Last Medication Dose Route Stop Time Status Admin Mupirocin 1 APPLIC BID 03/24 600 AC 03/25 NASAL 04/23 Weight: Actual weight (kg): 92 VS and I/O: Vital Signs Date Temp Pulse Resp B/P B/P Mean Pulse Ox FiO2 03/25-03/26 97.9-98.4 69-86 16-32 85-132/54-84 64-102 90-100 50-100 72 hours ending at 0700 03/26 0700 03/25 1900 03/25 0703/24 07 1900 Intake 1733.20 741.00 725.90 2337.20 1300.00 Total Output 160 148 6112 450 Total Balance 1313.20 455.00 -1954.10 1887.20 1300.00 Intake, IV 1733.20 741.00 725.90 2337.20 1300.00 Output, 078 873 6298 450 Urine Patient 92.4 kg 90.6 kg 92.4 kg 104.545 kg Weight Weight Bed scale Bed scale Bed scale Stated/Re ported Measuremen t Method 72 Hour I O Total 03/26 0703/25 0703/24 07 Intake Total 2474.20 3063.10 1300.00 Output Total 706 3130 Balance 1768.20 -66.90 1300.00 Labs: Laboratory Test : 03/26 03/25 03/24 0302 0241 1413 Chemistry BUN (7 - 18 MG/DL) 22 H 17 15 Creatinine (0.55 - 1.30 mg/dL) 0.96 0.97 1.01 Hematology WBC (4.1 - 12.1 K/mm3) 10.8 8.0 5.1 Microbiology: 03/26 810 NASAL: MRSA Screen - ORD 03/24 2117 BLOOD: Blood Culture - RES BACILLUS SPECIES NOT ANTHRACIS 03/24 2117 BLOOD: Blood Culture - RES 03/24 2054 BLOOD: Blood Culture - RES BACILLUS SPECIES NOT ANTHRACIS 03/24 2054 BLOOD: Blood Culture - RES 03/24 2030 SPUTUM: Sputum Culture - ORD 03/24 2030 SPUTUM: Gram Stain - ORD Treatment plan: consult, initiation of therapy Rationale: * 33-year-old gentleman with unknown past medical history presents with concern for intentional overdose. * 03/24 Blood cultures growing gram positive cocci * Pharmacy consulted to dose and monitor vancomycin. * Estimated t1/2 6.21 hrs and a calculated total daily dose of 3537 mg for a projected AUC/MEGHAN of 500 mcg*hr/ml. * Based upon patient, age, weight, renal function, and AUC/MEGHAN calculations the patient may benefit from vancomycin 20-25 mg/kg 2.5 grams x1, then Vancomycin 1.5 grams q12h * Vancomycin peak (Undergraduate Intern) 6/3 @ 0300; trough (Vt) 6/3 @ 1000 at 0830 RPT #:[id number] END OF REPORT [facility] 2024-03-25 17:01:00 [facility] ([facility]) Critical Care Progress Note REPORT#:[id number] REPORT STATUS: Signed REPORT INITIALIZATION DATE:03/25/24 TIME: 1700 PATIENT: ALEXIA WOODS UNIT #: [id number] ROOM[address]BED: [address] : [birth year] AGE: 33 SEX: M ATTEND: Ariana Moore MD ADM AUTHOR: Star Peters MD REPT SERVICE DT/TIME: 03/25/24 170 * ALL edits or amendments must be made on the electronic/computer document * Subjective HPI: 33-year-old gentleman with unknown past medical history presents with concern for intentional overdose. Per report patient told his that he did not kill self at approximately 4 AM. At 6 AM patient was found that that per report he ingested multiple medications including Keflex, Seroquel, Tegretol, Latuda. Patient received Narcan by EMS without response. Patient arrived in restraints to the emergency department. In the emergency department urine drug screen positive for amphetamines, acetaminophen negative. Chest x-ray without acute finding and CT head was unremarkable. Patient received Ativan and droperidol. Patient was requiring 4 point restraints admitted to ICU. Review of Systems Unable to obtain due to: Altered mental status Objective General VS/I O Laboratory Tests: 03/25 03/25 03/25 03/25 0313 0258 0241 0241 Blood Gas Puncture Site (DESCRIPTION ARTKIT) LEFT RADIAL ABG pH (7.35 - 7.45 pH units) 7.40 ABG pCO2 (35 - 45 mmHg) 40 ABG pO2 (80 - 100 mmHg) 77 L ABG PO2/FiO2 Ratio (mm/Hg) 77.00 ABG HCO3 (22.0 - 26.0 mmol/L) 24.8 ABG Base Excess (-3.0 - 3.0 mmol/L) 0.0 Jasen Test (POSITIVE Circ.CHK) POSITIVE Cord O2 Saturation (95 - 100 % (calc)) 96 O2 Delivery Method (DESCRIPTION COMMENT) BIPAP FiO2 (21 - 100 % (calc)) 100 PEEP (0.0 - 99.9 cm H20) 5 Pressure Support (0 cm H20) 5.0 Chemistry Sodium (133 - 144 mmol/L) 140.0 Potassium (3.5 - 5.1 mmol/L) 4.2 Chloride (98 - 107 mmol/L) 111 H Carbon Dioxide (20 - 31 mEq/L) 24 Anion Gap (4.0 - 15.0 GAP calc) 5.0 BUN (7 - 18 MG/DL) 17 Creatinine (0.55 - 1.30 mg/dL) 0.97 Glomerular Filtr Rate (>60 estGFR) 105 Glucose (70 - 110 MG/DL) 113 H Lactic Acid (0.4 - 2.0 mmol/L) 1.9 Calcium (8.7 - 10.4 MG/DL) 8.2 L Phosphorus (2.5 - 4.9 MG/DL) 4.0 Magnesium (1.8 - 2.4 MG/DL) 1.6 L Specimen Appearance (1 NORMAL Index/DL) NEGATIVE Specimen Hemolysis (1 NORMAL Index/DL) NEGATIVE Hematology WBC (4.1 - 12.1 K/mm3) 8.0 RBC (3.8 - 5.5 M/mm3) 3.94 Hgb (10.6 - 15.8 G/DL) 12.4 Hct (31.8 - 47.4 %) 34.5 MCV (80.1 - 101.1 fL) 87.6 MCH (25.3 - 35.3 pg) 31.5 MCHC (32.7 - 35.1 G/DL) 35.9 H RDW (12.2 - 16.4 %) 13.0 Plt Count (155 - 337 K/mm3) 151 L MPV (7.6 - 10.4 fL) 9.3 Gran % (37.8 - 82.6 %) 83.3 H Lymph % (Auto) (14.1 - 45.4 %) 10.0 L [place] % (Auto) (2.5 - 11.7 %) 5.9 Eos % (Auto) (0.0 - 6.2 %) 0.1 Baso % (Auto) (0.0 - 2.6 %) 0.2 Gran # (2.0 - 13.7 k/mm3) 6.68 Lymph # (Auto) (0.6 - 3.8 K/mm3) 0.80 [place] # (Auto) (0.11 - 0.59 K/mm3) 0.47 Eos # (Auto) (0.0 - 0.4 K/mm3) 0.01 Baso # (Auto) (0.0 - 0.1 K/mm3) 0.02 Total Counted (100 #CELLS) 100 Immature Gran % (0.0 - 2.0 %) 0.5 Seg Neutrophils % (40 - 75 %) 79 H Lymphocytes % (Manual) (12.6 - 43.5 %) 17 Monocytes % (Manual) (4.2 - 12.7 %) 4 L Nucleated RBC % (0.0 - 1.0 /100WBC%) 0.0 Nucleated RBCs # (0.00 - 0.05 K/mm3) 0.00 Vacuolated Neuts (NONE ON SCAN) SLIGHT Platelet Estimate (ADEQUATE ON SCAN) DECR 03/25 03/25 03/24 0019 0016 2246 Chemistry POC Glucose (70 - 119 MG/DL) 118 Lactic Acid (0.4 - 2.0 mmol/L) 1.8 2.1 H 03/241 2055 2053 Chemistry POC Glucose (70 - 119 MG/DL) 112 Lactic Acid (0.4 - 2.0 mmol/L) 1.7 Urines Urine Color (YELLOW DESCRIPT) YELLOW Urine Appearance (CLEAR DESCRIPT) CLEAR Urine pH (4.6 - 8.0 pH UNITS) 6.5 Ur Specific [place] (1.001 - 1.035 SG) 1.019 Urine Protein ((NEG) <30 mg/dL) 30 (1+) H Urine Glucose (UA) (0 (NORMAL) mg/dL) NORMAL (0) Urine Ketones ((NEG) 0 mg/dL) NEGATIVE (0) Urine Blood (0 (NEG) mg/dL) NEGATIVE (0.00) Urine Nitrite (NEG SCREEN) NEGATIVE (0) Urine Bilirubin ((NEG) 0 mg/dL) NEGATIVE (0.0) Urine Urobilinogen ((NORM)<2.0 mg/Dl) NORMAL (0) Ur Leukocyte Esterase ((NEG) 0 Leuk/mcL) NEGATIVE (0) Urine RBC (0 - 3 #RBC/HPF) 0-3 Urine WBC (0 - 3 #WBC/HPF) 0-3 Urine Bacteria (NONE - FEW /HPF) TRACE >0 Hyaline Casts (0 - 3 #/LPF) 0-5 Urine Mucus (NONE /LPF) RARE Urine Yeast (NONE /HPF) FEW >5 H Urine Culture Screen (Cult byWBC Criteria) Crit NOTmet CULT-N/A Urine Comment (SpecComment NoteSPEC) SPECIMEN COMMENT 03/24 1805 Chemistry POC Glucose (70 - 119 MG/DL) 120 H Microbiology: Date/Time Procedure - Status Source Growth 03/24 2117 Blood Culture - RES BLOOD 03/24 2117 Blood Culture - RES BLOOD 03/24 2054 Blood Culture - RES BLOOD 03/24 2054 Blood Culture - RES BLOOD 03/24 2030 Sputum Culture - ORD SPUTUM 03/24 2030 Gram Stain - ORD SPUTUM Recent Impressions: RADIOLOGY - XR CHEST 1 V 03/24 2005 Report Impression - Status: SIGNED Entered: 03/24/20242046 IMPRESSION: 1. Moderate bilateral pleural effusions. 2. Hazy opacities within the mid to lower lungs bilaterally, which may represent pneumonia or atelectasis. Impression By: [email or web address] - Carlota Ridley MD RADIOLOGY - XR CHEST 1 V 03/25 1324 Report Impression - Status: SIGNED Entered: 03/25/2024 1347 IMPRESSION: Bilateral pulmonary opacities possibly representing multifocal pneumonia. Impression By: Yovani Cintron MD Current Medications Sig/Chance Start time Last Medication Dose Route Stop Time Status Admin Piperacillin Sod/ 3.375 GM Q8H 03/25 1300 AC 03/25 Tazobactam Sod IV 03/31 2059 130 Sodium Chloride 100 ML Magnesium Sulfate/ 100 ML Q1H 03/25 1100 DC 03/25 Dextrose IV 03/25 1359 1304 Furosemide 20 MG NOW ONE 03/24 2115 DC 03/24 IV 03/24 Piperacillin Sod/ 4.5 GM Q8H 03/24 2100 DC 03/25 Tazobactam Sod IV 03/31 205 0557 Sodium Chloride 100 ML Sodium Chloride 1,000 ML BOLUS ONCE ONE 03/24 1830 DC 03/24 IV 03/24 1929 1830 Dexmedetomidine/ 250 ML ASDIR 03/24 0930 AC 03/25 Sodium Chloride IV 04/23 0931 1059 Enoxaparin Sodium 30 MG Q12H 03/24 06 AC 03/25 SUBQ 04/23 0601 0557 Famotidine 20 MG Q12H 03/24 06 AC 03/25 IV 04/23 0601 0558 Mupirocin 1 APPLIC BID 03/24 06 AC 03/25 NASAL 04/23 0601 0911 Acetaminophen 650 MG Q4H PRN PRN 03/24 0430 AC RECTAL 04/23 0431 Calcium Gluconate 50 ML ASDIR 03/24 0430 CKD IV 04/23 0431 Flumazenil 0.2 MG ASDIR PRN 03/24 0430 AC IV 04/23 0431 Lactated Ringer's 1,000 ML .Q10H 03/24 0430 DC 03/24 IV 04/23 0431 1529 Lorazepam 2 MG Q2H PRN PRN 03/24 0430 AC IV 04/23 0431 Lorazepam 4 MG Q2H PRN PRN 03/24 0430 AC 03/24 IV 04/23 0431 1538 Magnesium Sulfate 50 ML Q1H PRN PRN 03/24 0430 AC IV 04/23 0431 Magnesium Sulfate/ 100 ML ASDIR PRN 03/24 0430 AC 03/25 Dextrose IV 04/23 0431 0406 Ondansetron HCl 4 MG Q6H PRN PRN 03/24 0430 AC IV 04/23 0431 Potassium Chloride 20 MEQ ASDIR PRN 03/24 0430 AC PO 04/23 0431 Potassium Chloride 40 MEQ ASDIR PRN 03/24 0430 AC PO 04/23 0431 Potassium Chloride 40 MEQ ASDIR PRN 03/24 0430 AC PO 04/23 0431 Potassium Chloride 100 ML Q1H PRN PRN 03/24 0430 AC IV 04/23 0431 Potassium Chloride 100 ML Q1H PRN PRN 03/24 0430 AC IV 04/23 0431 Potassium Chloride 100 ML Q1H PRN PRN 03/24 0430 AC IV 06/30 0431 Potassium Chloride 100 ML Q1H PRN PRN 03/24 430 AC IV 04/23 431 Potassium Chloride 100 ML Q1H PRN PRN 03/24 430 AC IV 04/23 431 Potassium Chloride 100 ML Q1H PRN PRN 03/240 AC IV 04/23 431 Potassium Phos/ 1 PKT ASDIR PRN 03/24 430 CKD Sodium Phos PO 04/23 431 Potassium Phosphate 15 MMOL ASDIR PRN 03/24 430 AC Sodium Chloride 250 ML IV 04/23 431 Potassium Phosphate 30 MMOL ASDIR PRN 03/24 430 AC Sodium Chloride 500 ML IV 04/23 431 Lactated Ringer's 1,000 ML BOLUS ONCE ONE 03/24 415 AC 03/24 IV 05/04 24 hours ending at 0700 06 0700 03/24 2300 03/24 1500 Intake Total 725.90 2337.20 Output Total 2680 450 Balance -4.10 1887.20 Intake, IV 725.90 2337.20 Output, Urine 2680 450 Patient 90.6 kg Weight Weight Bed scale Measurement Method 24 Hour I O Total 03/25 0700 Intake Total 3063.10 Output Total 3130 Balance -66.90 Last Documented: Result Date Time Temp 98.1 03/25 1600 Pulse Ox 100 03/25 1600 B/P 90/56 03/25 1600 B/P Mean 67 03/25 1600 Pulse 71 03/25 1600 Resp 19 03/25 1600 FiO2 100 03/25 0800 O2 Delivery BiPAP 03/25 0800 O2 Flow Rate 2 03/24 0826 24 hour I O ending at 0700: 03/25 0700 03/24 1900 Intake Total 725.90 2337.20 Output Total 2680 450 Balance -1953.10 1887.20 Intake, IV 725.90 2337.20 Output, Urine 2680 450 Patient 90.6 kg Weight Weight Bed scale Measurement Method PATIENT WEIGHT: Weight (lb): 199 Weight (oz): 11.82 Weight (kg): 90.600 Physical Exam General appearance: altered mental status, respiratory support, no acute distress, BIPAP Head/eyes: atraumatic, clear cornea ENT: moist mucosal membranes Neck: no JVD Cardiovascular: normal capillary refill, normal heart sounds, regular rate and rhythm, normal S1/S2 Respiratory: aerating well, clear to auscultation, symmetric expansion, no distress, BIPAP Abdomen: soft, non-tender Extremities: moves all Musculoskeletal normal inspection Neuro/CHEMICAL PROCESSING SUPERVISOR: altered mental status Skin: dry Psychiatry: unable to evaluate Diagnosis, Assessment Plan Free text A P: 33-year-old gentleman with unknown past medical history presents with concern for intentional overdose on home medication, including overdose on Tegretol Intentional overdose: Acetaminophen, salicylate levels negative. Urine drug screen positive for amphetamines. CT head unremarkable. Supportive care with Precedex, benzodiazepines, antipsychotics as needed for agitation. Psychiatric evaluation once medically cleared. QTc monitoring. Improving Tegretol levels (delayed results given that these are send out test) Acute hypoxic respiratory failure, with community-acquired right lower lobe pneumonia -03/25/2024 chest x-ray: Developing dense right lower lobe infiltrate, as well as patchy pulmonary opacities in the left midlung -On BiPAP, wean FiO2 for goal SpO2 greater than 92% -Empiric antibiotics with Zosyn -Consider possibility of pulm edema (though this patient has not been fluid resuscitated since admission), check BNP level Hypomagnesemia: Correcting DVT prophylaxis: SCDS, prophylactic subcutaneous Lovenox GI prophylaxis: Not indicated unless prolonged n.p.o. Diispo: ICU Resuscitation status: Full code Once medically cleared, the patient will need psychiatric evaluation for suicide attempt via medication overdose at home. Critical care time 35 minutes at 1707 RPT #:[id number] END OF REPORT [facility] 2024-03-25 10:54:00 [facility] ([facility]) Hospitalist Progress Note REPORT#:[id number] REPORT STATUS: Signed REPORT INITIALIZATION DATE:03/25/24 TIME: 105 PATIENT: ALEXIA WOODS UNIT #: [id number] [address] AGE: 33 SEX: M ATTEND: Ariana Moore MD ADM AUTHOR: Kye Leslie MD REPT SERVICE DT/TIME: 03/25/24 1054 * ALL edits or amendments must be made on the electronic/computer document * Subjective Chief complaint: AMS Drug overdose Free Text Subj Notes Free Text Subj Notes: No acute events overnight. Patient remains altered and on BiPAP Objective General VS/I O: Vital Signs: Date Time Temp Pulse Resp B/P B/P Pulse O2 O2 Flow FiO2 Mean Ox Delivery Rate 06/ 1600 98.1 06/ 1400 77 17 96/65 77 100 06/01 1300 69 17 85/54 64 100 06/01 1200 97.9 06/ 1200 71 19 87/57 66 100 06/01 1100 72 19 85/54 64 99 06/01 1000 74 21 99 06/01 0945 74 21 89/58 69 100 06/01 0900 74 23 99 06/01 0845 89/57 68 06/01 0800 98.1 06/01 0800 BiPAP 100 06/01 0800 76 25 99 06/01 0745 77 27 93/59 71 98 06/01 0740 77 99 100 06/01 0700 78 27 96/53 69 98 06/01 0400 99.1 06/01 0400 BiPAP 100 06/01 0315 95 100 06/01 0000 99.1 06/01 0000 BiPAP 90 03/24 2218 103 94 100 03/24 2000 99.0 03/24 2000 BiPAP 100 03/24 2000 102 26 100/63 77 94 03/24 1945 103 26 110/64 78 93 03/24 1930 102 27 106/59 76 93 03/24 1915 103 25 106/62 79 91 03/24 1907 104 92 100 03/24 1907 92 BiPAP 100 03/24 1900 104 26 112/67 80 92 03/24 1845 106 28 105/59 78 92 03/24 1830 109 28 106/56 74 92 03/24 1815 102 22 92/54 67 99 03/24 1800 109 26 105/57 74 91 03/24 1745 107 26 101/55 73 91 03/24 1730 108 26 102/56 76 94 03/24 1715 109 27 95/53 66 94 03/24 1700 109 30 99/54 71 94 03/24 1645 109 30 100/55 74 92 03/24 1630 109 25 90/56 69 92 03/24 1616 105 24 83/60 67 91 24 hour I O ending at 0700: 03/25 0700 03/24 190 Intake Total 725.90 2337.20 Output Total 2680 450 Balance -4.10 1887.20 Intake, IV 725.90 2337.20 Output, Urine 2680 450 Patient 90.6 kg Weight Weight Bed scale Measurement Method PATIENT WEIGHT: Weight (lb): 199 Weight (oz): 11.82 Weight (kg): 90.600 Physical Exam Cardiovascular: regular rate rhythm Respiratory: decreased breath sounds Abdomen: soft Neuro/CHEMICAL PROCESSING SUPERVISOR: altered mental status Diagnosis, Assessment Plan Free Text DxA P Notes Free text DxA P notes: Toxic encephalopathy Treat underlying condition Electrolyte balance Drug overdose Electrolyte balance Hydration Treat with benzos Psych evaluation Possible S suicide attempt 1 is to 1 watch CM consult 03/25 ON bipap. continue. Restraints ordered. Continue suicide precautions. Once patient is medically stable will need psych evaluation and likely inpatient psych placement at 1612 RPT #:[id number] END OF REPORT [facility] 2024-03-24 10:22:00 [facility] ([facility]) Clinical Note REPORT#:[id number] REPORT STATUS: Signed REPORT INITIALIZATION DATE:03/24/24 TIME: 102 PATIENT: ALEXIA WOODS UNIT #: [id number] ROOM[address]BED: [address] : 89 AGE: 33 SEX: M ATTEND: Ariana Moore MD ADM AUTHOR: Kye Leslie MD REPT SERVICE DT/TIME: 03/24/24 1022 * ALL edits or amendments must be made on the electronic/computer document * Clinical Note Note: montior abg tegretol overdose, suicide attempt if further respiratory depression may need bipap vs vent. Suicide Risk Detail Assessment Suicide Risk Detail Assessment Suicide risk score: The data set between the solid lines has been imported from nursing documentation. Any exceptions have been noted below under Provider comments. ____ Calculated suicide risk level: High risk ____ Provider comments on imported nursing data: [] Overall risk level-suicide: high risk at 1537 RPT #:[id number] END OF REPORT [facility] 2024-03-24 09:15:00 [id number] [place] [address] PATIENT NAME: ALEXIA WOODS ADMIT DATE: 03/24/24 ACCOUNT NO: [id number] ROOM NO: [place] [address] AGE: 33 REPORT TYPE: ELECTROCARDIOGRAM SEX: M ADMITTING PHYSICIAN:Ariana Moore MD ATTENDING PHYSICIAN:Ariana Moore MD Order: [id number] Test Reason : OVERDOSE Test Date/Time Stamp: WedMar 24 2024 09:15:09 Blood Pressure : / mmHG Vent. Rate : 097 BPM Atrial Rate : 097 BPM P-R Int : 180 ms QRS Dur : 096 ms QT Int : 338 ms P-R-T Axes : 070 068 033 degrees QTc Int : 429 ms Normal sinus rhythm Nonspecific T wave abnormality Abnormal ECG No previous ECGs available Confirmed by JACOB NIX, LUIS ([id number]) on 03/28/2024 5:16:00 PM Referred By: Self Referred Confirmed by:LUIS CLARKE MD at 1716 PATIENT NAME: ALEXIA WOODS [facility] 2024-03-24 04:18:00 [facility] ([facility]) Critical Care Consult Note REPORT#:[id number] REPORT STATUS: Signed REPORT INITIALIZATION DATE:03/24/24 TIME: 417 PATIENT: ALEXIA WOODS UNIT #: [id number] ROOM/BED: ICU12- : 89 AGE: 33 SEX: M ATTEND: Ariana Moore MD ADM AUTHOR: Chuckie Gibbs MD REPT SERVICE DT/TIME: 03/24/24417 * ALL edits or amendments must be made on the electronic/computer document * History of Present Illness HPI HPI: 33-year-old gentleman with unknown past medical history presents with concern for intentional overdose. Per report patient told his that he did not kill self at approximately 4 AM. At 6 AM patient was found that that per report he ingested multiple medications including Keflex, Seroquel, Tegretol, Latuda. Patient received Narcan by EMS without response. Patient arrived in restraints to the emergency department. In the emergency department urine drug screen positive for amphetamines, acetaminophen negative. Chest x-ray without acute finding and CT head was unremarkable. Patient received Ativan and droperidol. Patient was requiring 4 point restraints admitted to ICU. History - Adult longitudinal Allergies: Coded Allergies: No Known Allergies (03/23/24) Review of Systems ROS Unable to obtain due to: ams Objective Physical Exam VS/I O: Last Documented: Result Date Time Pulse Ox 92 03/24 0330 B/P 136/79 03/24 0330 B/P Mean 102 03/24 0330 Pulse 111 03/24 0330 Resp 20 03/24 0330 O2 Delivery Non rebreather mask 03/23 2131 Temp 98.2 03/23 2131 O2 Flow Rate 6 03/23 0804 24 hour I O ending at 0700: 03/24 0700 03/23 1900 Intake Total Output Total Balance Patient 104.545 kg Weight Weight Stated/Reported Measurement Method Patient Weight and BMI Weight (kg): 104.545 BMI: 30.4 Medications: Active Meds + DC'd Last 24 Hrs Acetaminophen (TYLENOL) 650 MG Q4H PRN PRN RECTAL (UNV) Calcium Gluconate (Calcium Gluconate 1 GM/NS 50 mL (B2)) 50 ML ASDIR IV (UNV) Enoxaparin Sodium (LOVENOX) 30 MG Q12H SUBQ (UNV) Famotidine (PEPCID) 20 MG Q12H IV (UNV) Flumazenil (ROMAZICON ) 0.2 MG ASDIR PRN IV (UNV) Lactated Ringer's (LACTATED RINGERS) 1,000 ML .Q10H IV Lorazepam (ATIVAN) 2 MG Q2H PRN PRN IV (UNV) Lorazepam (ATIVAN) 4 MG Q2H PRN PRN IV (UNV) Magnesium Sulfate (MAGNESIUM SULFATE 2GM/50ML BAG) 50 ML Q1H PRN PRN IV (UNV) Magnesium Sulfate/Dextrose (MAGNESIUM SULFATE 1GM/D5W 100ML) 100 ML ASDIR PRN IV (UNV) Ondansetron HCl (ZOFRAN) 4 MG Q6H PRN PRN IV (UNV) Potassium Chloride (K-DUR) 20 MEQ ASDIR PRN PO (UNV) Potassium Chloride (K-DUR) 40 MEQ ASDIR PRN PO (UNV) Potassium Chloride (K-DUR) 40 MEQ ASDIR PRN PO (UNV) Potassium Chloride (KCL 10 MEQ/100ML) 100 ML Q1H PRN PRN IV (UNV) Potassium Chloride (KCL 10 MEQ/100ML) 100 ML Q1H PRN PRN IV (UNV) Potassium Chloride (KCL 10 MEQ/100ML) 100 ML Q1H PRN PRN IV (UNV) Potassium Chloride (KCL 20 MEQ/100 ML) 100 ML Q1H PRN PRN IV (UNV) Potassium Chloride (KCL 20 MEQ/100 ML) 100 ML Q1H PRN PRN IV (UNV) Potassium Chloride (KCL 20 MEQ/100 ML) 100 ML Q1H PRN PRN IV (UNV) Potassium Phos/Sodium Phos (PHOS-NAK PACKET) 1 PKT ASDIR PRN PO (UNV) Potassium Phosphate (Potassium Phosphate) 15 MMOL ASDIR PRN IV (UNV) Sodium Chloride (NORMAL SALINE 250 ML) 250 ML Potassium Phosphate (Potassium Phosphate) 30 MMOL ASDIR PRN IV (UNV) Sodium Chloride (SODIUM CHLORIDE 0.9% 500 ML) 500 ML Lactated Ringer's (LACTATED RINGERS) 1,000 ML BOLUS ONCE ONE IV Sodium Chloride (SODIUM CHLORIDE 0.9% 1000 ML) 1,000 ML IV (UNi) Sodium Chloride (SODIUM CHLORIDE 0.9% 1000 ML) 1,000 ML BOLUS ONCE ONE IV (CAN) Droperidol (droPERidol) 5 MG ONCE ONE IV (DC) Droperidol (droPERidol) 2.5 MG X1ED STA IV (CAN) Lactated Ringer's (LACTATED RINGERS) 2,000 ML STAT STA IV (DC) Lorazepam (ATIVAN) 2 MG X1ED STA IV (DC) Haloperidol Lactate (HALDOL) 2.5 MG X1ED STA IV (CAN) General appearance: sedated Head/Eyes: atraumatic, clear cornea Cardiovascular: normal capillary refill, normal heart sounds Respiratory: aerating well, clear to auscultation Abdomen: soft, non-tender Extremities: moves all Musculoskeletal: normal inspection Skin: dry Psychiatry: unable to evaluate Diagnosis, Assessment Plan Free text DxA P: 33-year-old gentleman with unknown past medical history presents with concern for intentional overdose. Intentional overdose: Acetaminophen, salicylate levels negative. Urine drug screen positive for amphetamines. CT head unremarkable. Supportive care with Precedex, benzodiazepines, antipsychotics as needed for agitation. Psychiatric evaluation once medically cleared. QTc monitoring. DVT prophylaxis: Lovenox subcu GI prophylaxis: Not indicated unless prolonged n.p.o. Critical care time 38 minutes at 0447 RPT #:[id number] END OF REPORT [facility] 2024-03-24 04:12:00 [facility] ([facility]) Hospitalist History Physical REPORT#:[id number] REPORT STATUS: Signed REPORT INITIALIZATION DATE:03/24/24 TIME: 411 PATIENT: ALEXIA WOODS UNIT #: [id number] ROOM/BED: [place] [address] : 89 AGE: 33 SEX: M ATTEND: Ariana Moore MD ADM AUTHOR: Ariana Moore MD REPT SERVICE DT/TIME: 03/24/24411 * ALL edits or amendments must be made on the electronic/computer document * History of Present Illness HPI Chief complaint: AMS Drug overdose PCP: PCP: No Primary or Family Physician HPI: This is a 33-year-old male who was brought into the ER with drug overdose according to the notes he told his significant others that he is going to drive himself he took them to the Tegretol Keflex Seroquel unknown amount he was agitated and combative he just himself and was found with mosquito bites he was brought into the ER he remained in the ER for several hours started to get combative and agitated so he was restrained and plan is to transfer him to ICU for further management review of system is not available at this time History Past Medical Surgical Hx Patient History: 1. Overdose 2. Toxic encephalopathy Social History Smoking status for patients 13 years old or older: Unknown,if ever smoked Medication/Allergy-Vaccine Hx Medications: Laboratory Tests: 03/23 07 Chemistry Troponin I High Sens (0 - 54 ng/L) 4 Toxicology Salicylates (2.8 - 20.0 THER MG/DL) < 3.0 Urine Opiates Screen (<300 NG/ML SCcutoff) Negative Urine Barbiturates (<200 NG/ML SCcutoff) Negative Ur Phencyclidine Scrn (<25 NG/ML SCcutoff) Negative Ur Amphetamines Screen (<1000 NG/ML SCcutoff) POSITIVE U Benzodiazepines Scrn (<200 NG/ML SCcutoff) Negative Urine Cocaine Screen (<300 NG/ML SCcutoff) Negative Urine Cannabinoids (<50 NG/ML SCcutoff) Negative 03/23 747 Chemistry Sodium (133 - 144 mmol/L) 139.0 Potassium (3.5 - 5.1 mmol/L) 3.9 Chloride (98 - 107 mmol/L) 103 Carbon Dioxide (20 - 31 mEq/L) 28 Anion Gap (4.0 - 15.0 GAP calc) 8.0 BUN (7 - 18 MG/DL) 13 Creatinine (0.55 - 1.30 mg/dL) 1.03 Glomerular Filtr Rate (>60 estGFR) 98 Glucose (70 - 110 MG/DL) 117 H Calcium (8.7 - 10.4 MG/DL) 9.0 Total Bilirubin (0.00 - 1.00 MG/DL) 0.20 Direct Bilirubin (0.10 - 0.30 MG/DL) <0.10 L Indirect Bilirubin (0.2 - 1.3 MG/DL) CALC LUCIANO L AST (8 - 33.9 Unit/L) 21 ALT (10 - 49 Unit/L) 19 Total Alk Phosphatase (45 - 117 Unit/L) 66 Total Creatine Kinase (34 - 171 Unit/L) 137 Total Protein (6.4 - 8.2 G/DL) 7.2 Albumin (3.2 - 4.8 G/DL) 4.7 Specimen Appearance (1 NORMAL Index/DL) NEGATIVE Specimen Hemolysis (1 NORMAL Index/DL) 1 NORMAL <10 MG Hematology WBC (4.1 - 12.1 K/mm3) 6.9 RBC (3.8 - 5.5 M/mm3) 4.60 Hgb (10.6 - 15.8 G/DL) 14.2 Hct (31.8 - 47.4 %) 41.1 MCV (80.1 - 101.1 fL) 89.3 MCH (25.3 - 35.3 pg) 30.9 MCHC (32.7 - 35.1 G/DL) 34.5 RDW (12.2 - 16.4 %) 12.7 Plt Count (155 - 337 K/mm3) 252 MPV (7.6 - 10.4 fL) 8.7 Gran % (37.8 - 82.6 %) 52.8 Lymph % (Auto) (14.1 - 45.4 %) 34.9 [place] % (Auto) (2.5 - 11.7 %) 8.6 Eos % (Auto) (0.0 - 6.2 %) 3.0 Baso % (Auto) (0.0 - 2.6 %) 0.6 Gran # (2.0 - 13.7 k/mm3) 3.64 Lymph # (Auto) (0.6 - 3.8 K/mm3) 2.41 [place] # (Auto) (0.11 - 0.59 K/mm3) 0.59 Eos # (Auto) (0.0 - 0.4 K/mm3) 0.21 Baso # (Auto) (0.0 - 0.1 K/mm3) 0.04 Immature Gran % (0.0 - 2.0 %) 0.1 Nucleated RBC % (0.0 - 1.0 /100WBC%) 0.0 Nucleated RBCs # (0.00 - 0.05 K/mm3) 0.00 Toxicology Acetaminophen (1.0 - 2.0 mg/dL) < 0.2 L Ethyl Alcohol (0 - 10 MG/DL) <3 Recent Impressions: CAT SCAN - CT HEAD/BRAIN W/O CONT 03/24 012 Report Impression - Status: SIGNED Entered: 03/24/2024150 IMPRESSION: No acute intracranial abnormality. Impression By: Konrad Gutierrez MD RADIOLOGY - XR CHEST 1 V 03/24 220 Report Impression - Status: SIGNED Entered: 03/24/2024304 IMPRESSION: Hypoinflated lungs. No acute cardiopulmonary process identified. Impression By: Konrad Gutierrez MD Active Meds + DC'd Last 24 Hrs Lactated Ringer's (LACTATED RINGERS) 1,000 ML BOLUS ONCE ONE IV Sodium Chloride (SODIUM CHLORIDE 0.9% 1000 ML) 1,000 ML IV (UNi) Sodium Chloride (SODIUM CHLORIDE 0.9% 1000 ML) 1,000 ML BOLUS ONCE ONE IV (CANr) Droperidol (droPERidol) 5 MG ONCE ONE IV (DC) Droperidol (droPERidol) 2.5 MG X1ED STA IV (CAN) Lactated Ringer's (LACTATED RINGERS) 2,000 ML STAT STA IV (DC) Lorazepam (ATIVAN) 2 MG X1ED STA IV (DC) Haloperidol Lactate (HALDOL) 2.5 MG X1ED STA IV (CAN) Recent Impressions: CAT SCAN - CT HEAD/BRAIN W/O CONT 03/24 120 Report Impression - Status: SIGNED Entered: 03/24/2024150 IMPRESSION: No acute intracranial abnormality. Impression By: Konrad Gutierrez MD RADIOLOGY - XR CHEST 1 V 03/24 220 Report Impression - Status: SIGNED Entered: 03/24/2024304 IMPRESSION: Hypoinflated lungs. No acute cardiopulmonary process identified. Impression By: Konrad Gutierrez MD 03/24 0700 03/23 2300 03/23 1500 Intake Total Output Total Balance Patient 104.545 kg Weight Weight Stated/Reported Measurement Method Allergies: Coded Allergies: No Known Allergies (03/23/24) Review of Systems Unable to obtain due to: AMS OBJECTIVE VS/I O: Vital Signs Date Temp Pulse Resp B/P B/P Mean Pulse Ox FiO2 03/23-03/24 36.5-36.8 80-107 8-18 96-166/51-104 90-126 88-100 Last Documented: Result Date Time Pulse Ox 92 03/24 0230 B/P 144/77 03/24 0230 B/P Mean 104 03/24 0230 Pulse 102 03/24 0230 Resp 13 03/24 0230 O2 Delivery Non rebreather mask 03/23 2131 Temp 36.8 03/23 213 O2 Flow Rate 6 03/23 0804 24 hour I O ending at 0700: 03/24 0700 03/23 1900 Intake Total Output Total Balance Patient 104.545 kg Weight Weight Stated/Reported Measurement Method Patient Weight and BMI Weight (kg): 104.545 BMI: 30.4 General appearance: altered mental status Cardiovascular: regular rate rhythm Respiratory: decreased breath sounds Abdomen: soft Neuro/CHEMICAL PROCESSING SUPERVISOR: altered mental status Diagnosis, Assessment Plan Free Text A P: Toxic encephalopathy Treat underlying condition Electrolyte balance Drug overdose Electrolyte balance Hydration Treat with benzos Psych evaluation Possible S suicide attempt 1 is to 1 watch CM consult Critical care time more than 55 minutes QUALITY: DVT PROPHYLAXIS ordered: Pharmacological prophylaxis HOME MEDS have been reconciled, and ordered Essential GENERAL ADMIT MEDS Orders entered Advance Care Planning and Code Status Discussed: Full Code SUICIDE ASSESSMENT : No risk I have discussed the findings, working diagnosis/ses and plan of treatment with patient and all concerns and questions have been addressed at this time to the best of my abilities based on the initial and limited data at this time. I discussed the pros and cons of all options and engaged in shared-decision making. Agreeable with Admission. MDM [id number]: Patient to be admitted. Complex medical decision making, involving multiple comorbidities, differentials, diagnostics reviewed. Patient presents with a problem that potentially represents a highly morbid condition with a possible threat to life or bodily function. All test results ( Labs, Imaging studies, EKG ) have been personally reviewed by me, addressed upon, and considered in the medical decision-making. All abnormals or significant findings are listed or mentioned in the Assessment. I ordered more tests (see orders). I also reviewed records from prior admission. Social determinants of health that affect the patient's care were factored into the disposition. Discussed with ED Doc. I have performed a Medically Appropiate History and Physical. As I am a Electronic System Engineer and Admitting MD only, I am SIGNING OFF to one of the Hospital Doc's Dayshift Attending - TO BE ASSIGNED MD - will continue patient's care and management effective 0600 am I have initiated patient's plan of care based on preliminary diagnosis/ses and initial available test results and date. I am deferring further evaluation, treatment, and consultations to the assigned Attending. This note was partially created using a voice-recognition transcribing system. I have reviewed my note and incorrect words or phrases may have been missed during proofreading. Please interpret accordingly. at 0459 RPT #:[id number] END OF REPORT [facility] 2024-03-23 07:46:00 [facility] ([facility]) EMERGENCY PROVIDER REPORT REPORT#:[id number] REPORT STATUS: Signed DATE:03/23/24 TIME: 745 PATIENT: ALEXIA WOODS UNIT #: [id number] ROOM/BED: [address] AGE: 33 SEX: M PCP PHYS: No Primary or Family Physician SERVICE AUTHOR: Kaitlin Mac MD * ALL edits or amendments must be made on the electronic/computer document * Kaitlin Mac 03/23/24 0746: HPI-General Illness Free Text HPI Notes Free Text HPI Notes 33-year-old male presents with altered mental status after overdose. Told significant other that he was going to overdose, around 4 AM, police found the patient down in a ditch with altered mental status patient given Narcan by EMS, progressively more agitated and route on arrival slurred speech not oriented combative, patient took an unknown number of pills Latuda Tegretol Keflex Seroquel. Patient found with damp clothing mosquito bites versus other insect bites noted. Additional history from the patient limited due to altered mental status. Voice control case #[id number] they recommend monitoring potassium EKG intervals monitor for seizure dysrhythmia treat with benzos and observation. Physical exam General/constitutional: Combative agitated Head: Normocephalic, grossly atraumatic Eyes: Normal conjunctiva, no periorbital swelling or erythema Neck: Supple, no swelling or masses Ears/nose/throat: Moist mucous membranes, no facial swelling Respiratory: No respiratory distress, breath sounds equal bilaterally, no wheezes, no rales, no rhonchi Cardiovascular: Tachycardic regular rhythm, no murmur auscultated Abdomen/GI: Soft, nontender, no guarding Musculoskeletal: No lower extremity edema, no deformity, sutures to finges Skin: Warm, dry, erythematous bug bite type lesions noted to abdomen right leg Neurologic: Alert not oriented slurred speech moving all extremities with normal strength Psychiatric: Combative agitated General Initial Greet Date/Time 03/23/24727 Past Medical History - Adult Stated Complaint INGESTION Allergies Coded Allergies: No Known Allergies (03/23/24) Re-Evaluation MDM ED Course Medication(s) Ordered Medication(s) Ordered: Central Nervous System Agents Sig/Chance Start time Last Medication Dose Route Stop Time Status Admin Droperidol 2.5 MG X1ED STA 03/24 0137 CAN IV 03/24 138 Patient Discharge Departure Vital Signs/Condition Condition Stable Disposition Decision Transfer )( Request Time 1452 )( Request Date 03/23/24 Critical Care Time Spent (minutes): 35 Services Performed Patient management by me, Time spent at bedside, Reviewing test results, Discussing patient care, Documentation in record, Time with fam/ surrogate Separately billable procedures excluded from time. Patient was critically ill due to: Altered mental status overdose tachycardia agitation My treatment and management were: Benzodiazepines for tachycardia and agitation assessment of the patient review of results Yrn Nino 03/24/24 0141: HPI-General Illness Presentation Chief Complaint __ (ams) Physical Exam Vital Signs Vital Signs First Documented: Result Date Time Pulse Ox 100 03/23 728 B/P 138/97 03/23 728 B/P Mean 110 03/23 728 O2 Delivery Nasal cannula 03/23 728 O2 Flow Rate 6 03/23 728 Temp 97.7 03/23 728 Pulse 107 03/23 728 Resp 8 03/23 728 Last Documented: Result Date Time Pulse Ox 97 03/24 100 B/P 137/75 03/24 100 B/P Mean 96 03/24 100 Pulse 102 03/24 100 Resp 17 03/24 100 O2 Delivery Non rebreather mask 03/23 2131 Temp 98.2 03/23 2131 O2 Flow Rate 6 03/23 804 Review of Vital Signs Reviewed Interpretation Diagnostics Lab Results Interpretation Results Laboratory Tests 03/23/24 0747: [Embedded Image Not Available] Laboratory Tests: 03/23 03/23 03/23 1106 0747 47 Chemistry Troponin I High Sens (0 - 54 ng/L) 4 Toxicology Salicylates (2.8 - 20.0 THER MG/DL) < 3.0 Urine Opiates Screen (<300 NG/ML SCcutoff) Negative Urine Barbiturates (<200 NG/ML SCcutoff) Negative Carbamazepine (4.0 - 12.0 ug/mL) 20.1 *H Ur Phencyclidine Scrn (<25 NG/ML SCcutoff) Negative Ur Amphetamines Screen (<1000 NG/ML SCcutoff) POSITIVE U Benzodiazepines Scrn (<200 NG/ML SCcutoff) Negative Urine Cocaine Screen (<300 NG/ML SCcutoff) Negative Urine Cannabinoids (<50 NG/ML SCcutoff) Negative 03/23 747 Chemistry Sodium (133 - 144 mmol/L) 139.0 Potassium (3.5 - 5.1 mmol/L) 3.9 Chloride (98 - 107 mmol/L) 103 Carbon Dioxide (20 - 31 mEq/L) 28 Anion Gap (4.0 - 15.0 GAP calc) 8.0 BUN (7 - 18 MG/DL) 13 Creatinine (0.55 - 1.30 mg/dL) 1.03 Glomerular Filtr Rate (>60 estGFR) 98 Glucose (70 - 110 MG/DL) 117 H Calcium (8.7 - 10.4 MG/DL) 9.0 Total Bilirubin (0.00 - 1.00 MG/DL) 0.20 Direct Bilirubin (0.10 - 0.30 MG/DL) <0.10 L Indirect Bilirubin (0.2 - 1.3 MG/DL) CALC LUCIANO L AST (8 - 33.9 Unit/L) 21 ALT (10 - 49 Unit/L) 19 Total Alk Phosphatase (45 - 117 Unit/L) 66 Total Creatine Kinase (34 - 171 Unit/L) 137 Total Protein (6.4 - 8.2 G/DL) 7.2 Albumin (3.2 - 4.8 G/DL) 4.7 Specimen Appearance (1 NORMAL Index/DL) NEGATIVE Specimen Hemolysis (1 NORMAL Index/DL) 1 NORMAL <10 MG Hematology WBC (4.1 - 12.1 K/mm3) 6.9 RBC (3.8 - 5.5 M/mm3) 4.60 Hgb (10.6 - 15.8 G/DL) 14.2 Hct (31.8 - 47.4 %) 41.1 MCV (80.1 - 101.1 fL) 89.3 MCH (25.3 - 35.3 pg) 30.9 MCHC (32.7 - 35.1 G/DL) 34.5 RDW (12.2 - 16.4 %) 12.7 Plt Count (155 - 337 K/mm3) 252 MPV (7.6 - 10.4 fL) 8.7 Gran % (37.8 - 82.6 %) 52.8 Lymph % (Auto) (14.1 - 45.4 %) 34.9 [place] % (Auto) (2.5 - 11.7 %) 8.6 Eos % (Auto) (0.0 - 6.2 %) 3.0 Baso % (Auto) (0.0 - 2.6 %) 0.6 Gran # (2.0 - 13.7 k/mm3) 3.64 Lymph # (Auto) (0.6 - 3.8 K/mm3) 2.41 [place] # (Auto) (0.11 - 0.59 K/mm3) 0.59 Eos # (Auto) (0.0 - 0.4 K/mm3) 0.21 Baso # (Auto) (0.0 - 0.1 K/mm3) 0.04 Immature Gran % (0.0 - 2.0 %) 0.1 Nucleated RBC % (0.0 - 1.0 /100WBC%) 0.0 Nucleated RBCs # (0.00 - 0.05 K/mm3) 0.00 Toxicology Acetaminophen (1.0 - 2.0 mg/dL) < 0.2 L Ethyl Alcohol (0 - 10 MG/DL) <3 Recent Impressions: CAT SCAN - CT HEAD/BRAIN W/O CONT 03/24 0120 Report Impression - Status: SIGNED Entered: 03/24/2024 0151 IMPRESSION: No acute intracranial abnormality. Impression By: [email or web address] - Erick Gutierrez MD Re-Evaluation MDM Free Text MDM Notes Additional Text I, Yrn Ni MD, performed the substantitive portion of the medical decision making. MEDICAL DECISION MAKING: NUMBER AND COMPLEXITY OF PROBLEMS Patient presents with a problem that potentially represents a highly morbid condition with a possible threat to life or bodily function. AMOUNT AND/OR COMPLEXITY OF DATA Any discussion with independent historians will be noted in HPI or ED COURSE. Any discussion with external professional will be noted in ED COURSE. Labs and/or imaging was ordered and reviewed by me. External documents/tests reviewed: My imaging/EKG interpretation: RISK OF MORBITY, MORTALITY, AND COMPLICATIONS Any parenteral drug therapy requiring intensive monitoring for toxicity will be noted in ED COURSE. Any discussion regarding hospitalization/surgery will be noted in ED COURSE. ED COURSE: I assumed care of patient at 0100. Patient initially presented to the ER status post overdose, agitation. Initial hope that he would metabolize, clear, be able to undergo psychiatric evaluation. However, patient has been persistently encephalopathic in the ER. I reevaluated the patient and nursing staff noted that he was requiring a nonrebreather, upgraded from a nasal cannula. When off oxygen he was desatting into the 80s. Given his persistent delirium, head CT ordered. Shortly after head CT patient became very agitated, combative, flailing and unable to be redirected or verbally de-escalated. Patient placed in restraints and droperidol ordered. After he became agitated, he was oxygenating well on room air in the mid 90s. Given persistent encephalopathy will admit for further care. My independent interpretation of the EKG shows sinus tachycardia, normal QTc, normal QRS, no ischemic changes Patient Discharge Departure Vital Signs/Condition Vital Signs First Documented: Result Date Time Pulse Ox 100 03/23 0728 B/P 138/97 03/23 0728 B/P Mean 110 05/30 0728 O2 Delivery Nasal cannula 03/23 728 O2 Flow Rate 6 03/23 728 Temp 97.7 03/23 728 Pulse 107 03/23 728 Resp 8 03/23 728 Last Documented: Result Date Time Pulse Ox 97 03/24 0100 B/P 137/75 03/24 0100 B/P Mean 96 03/24 010 Pulse 102 03/24 0100 Resp 17 03/24 0100 O2 Delivery Non rebreather mask 03/23 2131 Temp 98.2 03/23 2131 O2 Flow Rate 6 03/23 0804 All vital signs available at the time of this entry have been reviewed. Clinical Impression Clinical Impression Primary Impression: Overdose Secondary Impressions: Toxic encephalopathy Disposition Decision Hospitalize Hosp Physician Name Ariana Moore MD )( Accepts Hospitalization Yes )( Accepted Time 143 )( Accepted Date 03/24/24 Discharge/Care Plan Admit Note I have spoken with the patient and/or caregivers. I have explained the patient's condition, diagnoses and treatment plan based on the information available to me at this time. I have answered the patient's and/or caregiver's questions and addressed any concerns. The patient and/or caregivers have as good an understanding of the patient's diagnosis, condition and treatment plan as can be expected at this point. The patient has been stabilized within the capability of the emergency department. The patient will be transported for further care and management or will be moved to an observation or inpatient service. I have communicated with the staff or medical practitioner taking over this patient's care. at 1407 at 0622 [facility] #:[id number] END OF REPORT [facility]
--- NOTE | 2024-12-20 11:22 | EDPHYS ---
Physician Documentation [facility] Name: Macario Cornelius Age: 34 yrs Sex: Male : 1990 Arrival Date: 12/20/2024 Time: 10:54 Bed IW5 Private MD: ED Physician Ney Alba HPI: 12/20 14:49 This 34 yrs old Male presents to ER via Ambulatory with complaints of Bug in ear. rt 14:49 Patient presents to the ED stating that there insects in his ears that are jumping in rt and out of the ears. States that when he removes them with a Q-tip, they jump right back and. Denies other acute complaints at this time, symptoms are mild in severity, no other aggravating or alleviating factors.. Historical: - Allergies: 11:20 Naproxen; db - PMHx: 11:20 Bipolar disorder; db - Immunization history:: Adult Immunizations unknown. - Infectious Disease History:: Denies. - Social history:: Smoking status: Patient reports the use of cigarette tobacco products, smokes one pack cigarettes per day. - Family history:: not pertinent. ROS: 14:49 Constitutional: Negative for fever, chills, and weight loss, MS/Extremity: Negative for rt injury and deformity, Skin: Negative for injury, rash, and discoloration, Neuro: Negative for headache, weakness, numbness, tingling, and seizure, 14:49 ENT: Positive for Foreign body sensation, ear pain, Exam: 14:49 Constitutional: This is a well developed, well nourished patient who is awake, alert, rt and in no acute distress. Head/Face: Normocephalic, atraumatic. MS/ Extremity: Pulses equal, no cyanosis. Neurovascular intact. Full, normal range of motion. Neuro: Awake and alert, GCS 15, oriented to person, place, time, and situation. Cranial nerves II-XII grossly intact. Motor strength 5/5 in all extremities. Sensory grossly intact. Cerebellar exam normal. Normal gait. 14:49 ENT: No foreign bodies identified, erythema noted to bilateral EACs, scant amount of discharge in the left EAC, bilateral TM effusions without erythema, no signs of mastoiditis, malignant OE. Vital Signs: 11:18 BP 155 / 94; Pulse 63; Resp 18; Temp 98; Pulse Ox 95% ; Weight 99.79 kg; Height 6 ft. 1 db in. ; 11:18 Body Mass Index 29.03 (99.79 kg, 185.42 cm) db MDM: 11:16 Medical Screening Exam initiated rt 14:49 Differential Diagnosis Foreign body, otitis externa. Data reviewed: vital signs, nurses rt notes. Counseling: I had a detailed discussion with the patient and/or guardian regarding the historical points, exam findings, and any diagnostic results supporting the discharge/admit diagnosis, the need for outpatient follow up. Response to treatment: There is no appreciated change of the patient's symptoms at this time. Administered Medications: No medications were administered Disposition Summary: 12/20/24 11:21 Discharge Ordered Notes: Location: Home rt Problem: new rt Symptoms: are unchanged rt Condition: Stable rt Diagnosis - Unspecified otitis externa, right ear rt - Unspecified otitis externa, left ear rt Followup: rt - With: Private Physician - When: 2 - 3 days - Reason: Discharge Instructions: - Discharge Summary Sheet rt - Otitis Externa rt Forms: - Medication Reconciliation Form rt - Antibiotic Education rt - Prescription Opioid Use rt - Patient Portal Instructions rt - Leadership Thank You Letter rt Prescriptions: - Amoxicillin 875 mg Oral Tablet - take 1 tablet ORAL route every 12 hours for 10 days; 20 tablet; Refills: 0, rt Product Selection Permitted - Ciprodex 0.3-0.1 % Otic drops, suspension - instill 4 drops OTIC route every 12 hours for 7 days , for ears ONLY; 1 Each; rt Refills: 0, Product Selection Permitted Signatures: Kasia Solomon RN RN Ney Fleming MD MD rt Corrections: (The following items were deleted from the chart) 11:21 11:20 Allergies: No Known Allergies; db db
--- NOTE | 2024-12-20 11:22 | ER ---
Nurse's Notes [facility] Name: Macario Cornelius Age: 34 yrs Sex: Male : 1990 Arrival Date: 12/20/2024 Time: 10:54 Bed IW5 Private MD: Diagnosis: Unspecified otitis externa, right ear;Unspecified otitis externa, left ear Presentation: 12/20 11:18 Chief complaint: Patient states: STATES FEELS LIKE THERE IS A "BUG IN MY EARS". STATES db WAS ABLE TO GET THEM OUT THEN THEY JUMPED BACK IN. Coronavirus screen: Client denies travel out of the [place] in the last 14 days. At this time, the client does not indicate any symptoms associated with coronavirus-19. Ebola Screen: Patient negative for fever greater than or equal to 101.5 degrees Fahrenheit, and additional compatible Ebola Virus Disease symptoms Patient denies exposure to infectious person. Patient denies travel to an Ebola-affected area in the 21 days before illness onset. No symptoms or risks identified at this time. Initial Sepsis Screen: Does the patient meet any 2 criteria? No. Patient's initial sepsis screen is negative. Does the patient have a suspected source of infection? No. Patient's initial sepsis screen is negative. Risk Assessment: Do you want to hurt yourself or someone else?. Onset of symptoms was December 20, 2024. 11:18 Method Of Arrival: Ambulatory db 11:18 Acuity: AMY 4 db Triage Assessment: 11:20 General: Appears in no apparent distress. comfortable, Behavior is calm, cooperative. db Pain: Complains of pain in right ear and left ear. Neuro: Level of Consciousness is awake, alert, obeys commands, Oriented to person, place, time, situation. Respiratory: Airway is patent Respiratory effort is even, unlabored, Respiratory pattern is regular, symmetrical. Historical: - Allergies: 11:20 Naproxen; db - PMHx: 11:20 Bipolar disorder; db - Immunization history:: Adult Immunizations unknown. - Infectious Disease History:: Denies. - Social history:: Smoking status: Patient reports the use of cigarette tobacco products, smokes one pack cigarettes per day. - Family history:: not pertinent. Screenin:26 [facility] ED Fall Risk Assessment (Adult) History of falling in the last 3 months, db including since admission No falls in past 3 months (0 pts) Confusion or Disorientation No (0 pts) Intoxicated or Sedated No (0 pts) Impaired Gait No (0 pts) Mobility Assist Device Used No (0 pt) Altered Elimination No (0 pt) Score/Fall Risk Level 0 - 2 = Low Risk Oriented to surroundings, Maintained a safe environment. Abuse screen: Denies threats or abuse. Denies injuries from another. Nutritional screening: No deficits noted. Tuberculosis screening: No symptoms or risk factors identified. Assessment: 11:26 Reassessment: Patient appears in no apparent distress at this time. Patient and/or db family updated on plan of care and expected duration. Pain level reassessed. Patient is alert, oriented x 3, equal unlabored respirations, skin warm/dry/pink. Vital Signs: 11:18 BP 155 / 94; Pulse 63; Resp 18; Temp 98; Pulse Ox 95% ; Weight 99.79 kg; Height 6 ft. 1 db in. ; 11:18 Body Mass Index 29.03 (99.79 kg, 185.42 cm) db ED Course: 11:09 Patient arrived in ED. mr 11:16 Ney Alba MD is Attending Physician. rt 11:20 Triage completed. db 11:20 Arm band placed on Patient placed. db 11:26 Patient has correct armband on for positive identification. Provided Education on: db DISCHARGE AND FOLLOWUP. 11:26 No provider procedures requiring assistance completed. Patient did not have IV access db during this emergency room visit. Administered Medications: No medications were administered Medication: 11:26 VIS not applicable for this client. db Outcome: : Discharge ordered by . rt 11:26 Discharged to home ambulatory, db 11:26 Condition: stable 11:26 Discharge instructions given to patient, Demonstrated understanding of instructions, follow-up care, Prescriptions given X 2, 11:28 Patient left the ED. db Signatures: Merissa Shook, Lawrence Reg mr Kasia Solomon, RN RN db Ney Alba MD MD rt Corrections: (The following items were deleted from the chart) 11:21 11:20 Allergies: No Known Allergies; db db
[2024-12-20 11:39] VITALS: BP 155/94; TEMP 98; O2SAT 95
== END 2024-12-20 11:28 | disposition home or self-care (01) ==
LOC: ER 10:54
DX: H60.93 Unspecified otitis externa, bilateral (principal)
CPT/HCPCS: 99283